=== PATIENT | male | born 1945 | race Caucasian/White ===

== ENCOUNTER 2020-02-07 14:22 | Inpatient (IN) | payer MEDICARE, SELFPAY ==
[2020-02-07] VITALS (8 sets, daily range): BP systolic 120–154; BP diastolic 61–72; PULSE 65–76; RESP 14–20; TEMP 36–36.8; O2SAT 93–98; BMI 27.6
--- NOTE | ~2020-02-07 | XR_ITS ---
XR hip LT min 3V w AP pelvis 02/07/2020 15:41 Indication: Left hip pain after fall from ladder Procedure: AP pelvis and 3 views left hip Comparison: No prior studies for comparison. Findings: There is a nondisplaced left femoral intertrochanteric fracture which continues inferiorly and laterally from the lesser trochanter. There is mild displacement of the greater trochanter. Moder ate degenerative changes of the hips. Mild levoscoliosis lower lumbar spine. Sacral foramen are gross ly symmetric. Pelvic rings are intact. Impression: 1: Left femoral intertrochanteric fracture which continues inferiorly laterally from the lesser troch anter. Mild displacement of the greater trochanter. Reviewed, dictated and finalized at location A. Impression: 1: Left femoral intertrochanteric fracture which continues inferiorly laterally from the lesser trochanter. Mild displacement of the greater trochanter.
--- NOTE | ~2020-02-07 | XR_ITS ---
XR surgery orthopedic 02/08/2020 15:20 Indication: For operative fixation of left hip fracture Procedure: 5 fluoroscopic images of the left hip Comparison: CT dated 02/07/2020 Findings: Status post intraoperative fixation of left femoral intertrochanteric fracture with dynamic compression screw and intramedullary maura. Fracture fragments in anatomic alignment post reduction. T here is a single distal interlocking screw. Impression: 1: Anatomic alignment of the left femur post reduction with dynamic compression screw and intramedull saurabh maura. Reviewed, dictated and finalized at location A. Impression: 1: Anatomic alignment of the left femur post reduction with dynamic compression screw and intramedullary maura.
--- NOTE | ~2020-02-07 | XR_ITS ---
EXAMINATION: XR chest 1V portable DATE: 02/08/2020 05:34 INDICATION: Hypertension. Preop. TECHNIQUE: A single frontal view of the chest was obtained. COMPARISON: Chest 2 views 03/22/2017 FINDINGS: There are airspace opacities at left lung base. There is a small left pleural effusion. No pneumothorax. The heart size is normal. There is a left shoulder arthroplasty. IMPRESSION: 1. Airspace opacities at left lung base, consistent with atelectasis versus pneumonia. 2. Small left pleural effusion. Reviewed, dictated and finalized at location A. IMPRESSION: 1. Airspace opacities at left lung base, consistent with atelectasis versus pne umonia. 2. Small left pleural effusion.
--- NOTE | ~2020-02-07 | CT_ITS ---
EXAMINATION: CT lumbar spine abiel ivan EXAM DATE: 02/07/2020 15:30 INDICATION: Fall, subsequent lumbar pain. TECHNIQUE: Spiral CT lumbar spine was performed without contrast. Axial, coronal and sagittal images of the lumbar spine were reviewed. The dose-length product (DLP) for this examination was 919.75 mGy- cm. The exposure was tailored according to patient size (auto mA exposure control), and iterative re construction (ASIR) was used as additional dose reduction technique. There is no prior study for sharif ortiz. FINDINGS: Sacroiliac joints intact. There is chronic appearing mild to moderate compression fracture of T12. Mi ld lower lumbar levoscoliosis centered at L4-5 with moderate disc disease and moderate to severe righ t neural foraminal stenosis at that level. Otherwise no more than mild to moderate lumbar central can al or neural foraminal stenosis. There is no evidence of acute lumbar fracture or spondylolysis. Th ere is no disc space widening or traumatic vertebral body subluxation suspected. Paraspinal soft tis juan francisco is unremarkable. There is moderate to severe lower lumbar facet arthropathy. Some scattered sigm oid diverticulosis. A detailed level by level evaluation of spondylosis can be added as addendum if requested. IMPRESSION: 1. No acute lumbar findings. 2. Chronic appearing T12 compression fracture. 3. 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 Reviewed, dictated and finalized at location A. IMPRESSION: 1. No acute lumbar findings. 2. Chronic appearing T12 compression fracture. 3. Spondylosis mostly L4-5 with moderate to severe right neural foraminal sten osis at that level.
--- NOTE | ~2020-02-07 | CT_ITS ---
EXAMINATION: CT hip LT wo con EXAM DATE: 02/07/2020 16:24 INDICATION: Initial encounter following injury, with pain of the left hip. Fall. Fracture. TECHNIQUE: Spiral CT hip LT wo con was performed without contrast. Axial, coronal and sagittal imag es were reviewed. The dose-length product (DLP) for this examination was 394.80 mGy-cm. The exposur e was tailored according to patient size (auto mA exposure control), and iterative reconstruction ( IR) was used as additional dose reduction technique. Correlation is made to left hip x-ray same date. FINDINGS: There is mildly displaced mildly comminuted left hip greater trochanteric fracture. There i s additional acute nondisplaced posttraumatic intertrochanteric fracture line identified on the anter ior cortex, and also spiraling down to the subtrochanteric region of the posterior cortex. This is be st seen on on coronal sequence 602, images 62 and 72, finding has been indicated on several of the se quences for your review. Imaged portion of the sacrum, left sacroiliac joint intact. There is colonic diverticulosis. IMPRESSION: 1. Left hip acute nondisplaced intertrochanteric fracture extending to the subtrochanteric region. 2. Mildly comminuted mildly displaced greater trochanteric fracture. Reviewed, dictated and finalized at location A. IMPRESSION: 1. Left hip acute nondisplaced intertrochanteric fracture extending to the sub trochanteric region. 2. Mildly comminuted mildly displaced greater trochanteric fracture.
--- NOTE | 2020-02-07 14:35 | ED.FALL ---
HPI - Fall General Chief Complaint: Fall <DALIA Swenson Last Filed: 02/07/20 18:08> Stated Complaint: FALL/L HIP PAIN <DALIA Swenson Last Filed: 02/07/20 18:08> Time Seen by Provider: 02/07/20 14:28 <DALIA Swenson Last Filed: 02/07/20 18:08> Source: patient, family and EMS <DALIA Swenson Last Filed: 02/07/20 18:08> Mode of arrival: ambulatory <DALIA Swenson Last Filed: 02/07/20 18:08> Limitations: no limitations <DALIA Swenson Last Filed: 02/07/20 18:08> History of Present Illness HPI Narrative: Patient is a 74-year-old male who presents per EMS for evaluation of fall from 3 feet up on a stepladder landing on the left hip has since been unable to get up presents per EMS noting moderate aching pain to the left hip only worse with any movement or activity patient denies head injury syncope loss of consciousness radicular symptoms or paresthesias. Patient on arrival in the room in no distress. Patient denies recent illness or other complaints <DALIA Swenson Last Filed: 02/07/20 18:08> Related Data Home Medications: Home Medications Medication Instructions Recorded Confirmed atorvastatin 20 mg PO 3XW 02/07/20 02/07/20 lisinopril 20 mg PO DAILY 02/07/20 02/07/20 royxvzli-hku-NW-lycopen-lutein 1 tablet PO DAILY 02/07/20 02/07/20 [Centrum Silver Men] <DALIA Swenson Last Filed: 02/07/20 18:08> Allergies/Adverse Reactions: Allergies Allergy/AdvReac Type Severity Reaction Status Date / Time No Known Allergies Allergy Unknown Verified 03/25/17 10:34 <DALIA Swenson Last Filed: 02/07/20 18:08> Review of Systems Review of Systems: All systems reviewed & are unremarkable except as noted in HPI and below <DALIA Swenson Last Filed: 02/07/20 18:08> [facility] Past Medical History Medical History: Medical History (Updated 02/07/20 @ 17:34 by Christiano Eden PA-C) Anemia <Christiano Eden PA-C - Last Filed: 02/07/20 18:08> Surgical History Surgical History: Surgical History History of orthopedic surgery <Christiano Eden PA-C - Last Filed: 02/07/20 18:08> Family History Family History: Family History (Updated 02/07/20 @ 19:12 by Jennifer Funk RN) Father Acute myocardial infarction <Christiano Eden PA-C - Last Filed: 02/07/20 18:08> Social History Social History: Social History (Updated 02/07/20 @ 14:36 by Christiano Eden PA-C) Smoking status: Never smoker Alcohol intake: never Substance use: never Gender identity (if verbalized by the patient): Male Spiritual care concerns: No <Christiano Eden PA-C - Last Filed: 02/07/20 18:08> Exam Narrative: Exam Narrative: GENERAL: Well-appearing, well-nourished, and in no acute distress. HEAD: Normocephalic, atraumatic. EYES: PERRLA and EOMI. ENT: Nares clear, no rhinorrhea or epistaxis. Mucous membranes moist. Oropharynx without tonsillar hypertrophy exudate or other lesions. NECK: Supple. No adenopathy or masses. CHEST: Clear to auscultation. No respiratory distress. No wheezes rales or rhonchi HEART: Regular rate and rhythm. No murmur heard. Normal peripheral pulses. ABDOMEN: Soft, nontender, nondistended EXTREMITIES: Tenderness of the left hip. Pelvis palpated and stable. No C-spine tenderness to palpation SKIN: Warm, dry, no rash. NEURO: No focal deficits. Alert and oriented x3. Neurovascularly intact. Cranial nerves II through XII grossly intact PSYCH: Normal mood and affect. <Christiano Eden PA-C - Last Filed: 02/07/20 18:08> Course ROUTE SUPERVISOR/PA Physician Supervision Spoke with the orthopedic surgeon who will plan to do surgery tomorrow also spoke with the hospitalist who is agreed to accept the patient <Christiano Eden PA-C - Last Filed: 02/07/20 18:08> Consultations Consult
[2020-02-07] MEDS: SODIUM CHLORIDE 0.9% IV 1,000 ML 999 ML IV CONT (14:41)
[2020-02-07] MEDS: MORPHINE SULFATE 4 MG/ML INJ IV PUSH ×3 (14:43→21:31)
[2020-02-07 14:56] LABS: Basophils Absolute Auto 0.1 K/mm3 (0.0-0.1); Basophils Percent Auto 0.6 % (0.2-1.2); Eosinophils Absolute Auto 0.2 K/mm3 (0-0.3); Eosinophils Percent Auto 1.5 % (0-4.4); Hematocrit 40.2 % (42.0-52.0); Hemoglobin 12.6 g/dL (14.0-18.0); Immature Granulocyte Absolute 0.04 K/mm3 (0.00-0.031); Immature Granulocyte Percent A 0.4 % (0-0.5); Lymphocytes Absolute Auto 2.37 K/mm3 (0.9-3.2); Lymphocytes Percent Auto 23.6 % (18.3-44.2); Mean Corpuscular HGB Conc 31.3 g/dl (32-36); Mean Corpuscular Hemoglobin 27.8 pg (26-34); Mean Corpuscular Volume 88.7 fl (80-100); Mean Platelet Volume 10.5 fl (7.4-10.4); Monocytes Percent Auto 9.9 % (2.6-8.5); Neutrophils Absolute Auto 6.4 K/mm3 (1.3-6.7); Platelet Count Result 253 k/mm3 (150-375); Red Blood Count 4.53 M/mm3 (4.6-6.20); Red Cell Distribution Width 14.4 % (11.5-14.5)
[2020-02-07 15:08] LABS: Alanine Aminotransferase 22 U/L (4-50); Alkaline Phosphatase 84 U/L (38-126); Aspartate Amino Transferase 31 U/L (17-59); Bilirubin,Total 0.8 mg/dL (0.2-1.3); Blood Urea Nitrogen 20 mg/dL (9-20); Calcium 9.2 mg/dL (8.4-10.2); Carbon Dioxide 26 mmol/L (22-30); Chloride 106 mmol/L (98-107); Estimated CRCL calculation 52 ml/min; Estimated Glomerular Filt Rate > 60; Glucose 137 mg/dL (75-110); Potassium 4.1 mmol/L (3.4-5.0); Sodium 137 mmol/L (137-145)
--- NOTE | 2020-02-07 17:37 | ECG_ITS ---
Measurements Intervals [place] Rate: 68 P: 59 OH: 155 QRS: -11 QRSD: 97 T: 28 QT: 417 QTc: 445 Interpretive Statements SINUS RHYTHM BASELINE WANDER- I, II NORMAL ECG Electronically Signed On 02-07-2020 19:39:18 CDT by Nish Hylton D.O.
[2020-02-07 17:55] LABS: Prothrombin Time 12.9 Seconds (11.1-14.7)
[2020-02-07 17:56] LABS: Partial Thromboplastin Time 26.1 SECONDS (22.3-36.8)
--- NOTE | 2020-02-07 19:03 | ADMGEN ---
This patient, Priscilla Dennis, was admitted to [facility] Surg Room 304-01. Patient/family oriented to hospital policies and general routines including ID bracelet, bed and alarms, visiting hours, pain management, procedures, bathroom and other care routines, personal items, smoking policy, room service/diet, and visiting hours. Valuables list has been completed. Information on how to activate the Rapid Response Team has been discussed. Patient/Family are encouraged to report perceived risks to care and to ask questions if they do not understand what they are told or what they should do.
[2020-02-07] MEDS: LACTATED RINGERS 1,000 ML 125 ML IV CONT (19:50)
[2020-02-07] MEDS: FAMOTIDINE 20 MG/2 ML VIAL IV PUSH (21:26)
[2020-02-07] MEDS: ONDANSETRON INJ 4 MG/2 ML VIAL IV PUSH (23:08)
--- NOTE | 2020-02-07 23:18 | PM.IMHP ---
H&P: HPI History of Present Illness Chief complaint: closed left hip fracture Narrative: Priscilla Dennis is a 74 year old male who stated that he was in his garage and he got on a 3 step ladder. The patient stated that he was reaching for some light bulbs on a shelf. The patient stated that he believes that he got down to the 2nd wrong and then he went to step-down he believes on the 1st wrung and fell off and landed on his left hip. The patient stated that laid there for a few minutes to see if he could possibly get up. After he was unable to get up he uses cell phone because to come back home. He stated he does not have a syncopal episode and that he did not lose consciousness or hit his head. Left hip acute nondisplaced intratrochanteric fracture extending to the subtrochanteric region. Mildly comminuted mildly displaced greater trochanteric fracture. Shows a left femoral intertrochanteric fracture which continues inferiorly laterally from the lesser trochanter. Mild displacement of the greater trochanter. Lumbar spine was read as no acute lumbar findings. Chronic appearing T12 compression fracture. Spondylosis mostly L4 and L5 with moderate to severe right neural foraminal stenosis at that level. 12.6 and 40.2 the patient stated that he has been taking iron and he has a history of iron deficiency anemia. He stated that in 2017 he did have a blood transfusion but is blood count initially came up.IV fluids were started in the emergency room. The patient was given IV morphine and IV Tylenol. The patient was having hiccups once he reached the medical floor and felt like he was going to throughout. Date of service 02/07/2020 Review of Systems Review of Systems: All systems reviewed & are unremarkable except as noted in HPI and below Constitutional: Constitutional: Reports as per HPI and Reports no additional constitutional complaints Eyes: Eyes: Reports as per HPI and Reports no additional eye complaints ENT: Reports system reviewed and no additional complaints, except as documented and Reports Normal hearing present Cardiovascular: Cardiovascular: Reports no additional cardiovascular complaints Respiratory: Respiratory: Reports no additional respiratory complaints and Reports no additional respiratory complaints Gastrointestinal: Gastrointestinal: Reports as per HPI and Reports no additional gastrointestinal complaints Musculoskeletal: Musculoskeletal: Reports no additional musculoskeletal complaints Integumentary/Breasts: Skin/Breast: Reports system reviewed and no additional complaints, except as docu and Reports as per HPI Neurologic: Reports system reviewed and no additional complaints, except as documented, Reports as per HPI and Reports Normal hearing present Psychiatric: Psychiatric: Reports no additional psychiatric complaints and Reports as per HPI Endocrine: Endocrine: Reports no additional endocrine complaints Hematologic/Lymphatic: Hematologic/Lymphatic: Reports no additional hematologic/lymphatic complaints Allergic/Immunologic: Allergic/Immunologic: Reports no additional allergic/immunologic complaints PMFSH Past Medical History Medical History (Updated 02/07/20 @ 23:38 by Christin Sandoval NP) Anemia Compression fracture T12 Gout HTN (hypertension) with goal to be determined Hyperlipidemia Iron deficiency anemia Surgical History Surgical History (Updated 02/07/20 @ 23:27 by Christin Sandoval NP) History of left shoulder replacement Family History Family History (Updated 02/07/20 @ 23:33 by Christin Sandoval NP) Father Acute myocardial infarction Gout Mother Cerebral brain hemorrhage Social History Social History (Updated 02/07/20 @ 23:40 by Christin Sandoval NP) Social History: The patient is and lives with his . She is a durable power civil rights attorney for healthcare. The patient desires to be a full code. The patient has 4 children. He worked for [employer]. He works in the [employer]
[2020-02-08] VITALS (13 sets, daily range): BP systolic 111–158; BP diastolic 56–79; PULSE 66–75; RESP 10–20; TEMP 36.4–37.2; O2SAT 96–100
[2020-02-08] MEDS: LACTATED RINGERS 1,000 ML 125 ML IV CONT ×2 (04:03→11:40)
[2020-02-08 04:29] LABS: Alanine Aminotransferase 23 U/L (4-50); Albumin Level 3.7 g/dL (3.5-5.1); Alkaline Phosphatase 67 U/L (38-126); Aspartate Amino Transferase 30 U/L (17-59); Bilirubin,Total 0.9 mg/dL (0.2-1.3); Blood Urea Nitrogen 20 mg/dL (9-20); Carbon Dioxide 26 mmol/L (22-30); Chloride 105 mmol/L (98-107); Estimated CRCL calculation 57 ml/min; Estimated Glomerular Filt Rate > 60; Glucose 174 mg/dL (75-110); Magnesium 1.9 mg/dL (1.6-2.3); Potassium 4.7 mmol/L (3.4-5.0); Sodium 140 mmol/L (137-145)
--- NOTE | 2020-02-08 07:00 | PC.NURSE ---
MRSA swab testing cancelled by Dr Gavin - no indication for testing. Lab notified.
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
[2020-02-08] MEDS: OPTI-GEN TAB 1 TABLET PO (09:20)
[2020-02-08] MEDS: FAMOTIDINE 20 MG/2 ML VIAL IV PUSH (09:20)
[2020-02-08] MEDS: LACTATED RINGERS 1,000 ML 30 ML IV CONT ×2 (12:15→15:57)
--- NOTE | 2020-02-08 12:18 | PC.NURSE ---
Pt left for OR at 1200.
--- NOTE | 2020-02-08 12:25 | WPDANESEPPF ---
Anes - Initial Pre Proc Eval Procedure: Operation Date: 02/08/20 13:30 Proposed Procedures p Left Intertrochanteric Nail - Delvis Gavin MD Date/Time: 02/08/20 12:25 Surgeon: Tutu English MD Pre Op Diagnosis: closed left hip fracture Patient Data Age: 74 Gender: M Height: 5 ft 9 in Weight: 85 kg Last Vital Signs Temp 36.6 C 02/08/20 11:24 Pulse 69 02/08/20 11:24 Resp 16 02/08/20 11:24 BP 122/56 L 02/08/20 11:24 Pulse Ox 96 02/08/20 11:24 Allergies Allergy/AdvReac Type Severity Reaction Status Date / Time No Known Allergies Allergy Unknown Verified 03/25/17 10:34 Home Medications Medication Instructions Recorded Confirmed Type atorvastatin 20 mg PO 3XW 02/07/20 02/07/20 History lisinopril 20 mg PO DAILY 02/07/20 02/07/20 History izmplfca-evm-YM-lycopen-lutein 1 tablet PO DAILY 02/07/20 02/07/20 History [Centrum Silver Men] Laboratory Tests 02/07/20 02/07/20 02/07/20 14:49 14:49 14:49 WBC 10.0 K/mm3 K/mm3 (4.5-10.0) RBC 4.53 M/mm3 L M/mm3 (4.6-6.20) Hgb 12.6 g/dL L g/dL (14.0-18.0) Hct 40.2 % L % (42.0-52.0) MCV 88.7 fl fl (80-100) MCH 27.8 pg pg (26-34) MCHC 31.3 g/dl L g/dl (32-36) RDW 14.4 % % (11.5-14.5) Plt Count 253 k/mm3 k/mm3 (150-375) MPV 10.5 fl H fl (7.4-10.4) Immature Gran % (Auto) 0.4 % % (0-0.5) Neut % (Auto) 64.0 % % (45.5-73.1) Lymph % (Auto) 23.6 % % (18.3-44.2) Greenlee % (Auto) 9.9 % H % (2.6-8.5) Eos % (Auto) 1.5 % % (0-4.4) Baso % (Auto) 0.6 % % (0.2-1.2) Lymph # (Auto) 2.37 K/mm3 K/mm3 (0.9-3.2) Greenlee # (Auto) 1.0 K/mm3 H K/mm3 (0.1-0.6) Eos # (Auto) 0.2 K/mm3 K/mm3 (0-0.3) Baso # (Auto) 0.1 K/mm3 K/mm3 (0.0-0.1) Abs Immat Gran (auto) 0.04 K/mm3 H K/mm3 (0.00-0.031) Absolute Neuts (auto) 6.4 K/mm3 K/mm3 (1.3-6.7) Absolute Nucleated RBC 0.0 K/mm3 K/mm3 (0.0-0.012) Nucleated RBC % 0.0 % % (0.0-0.2) PT 12.9 Seconds Seconds (11.1-14.7) INR 1.0 APTT 26.1 SECONDS SECONDS (22.3-36.8) Sodium 137 mmol/L mmol/L (137-145) Potassium 4.1 mmol/L mmol/L (3.4-5.0) Chloride 106 mmol/L mmol/L (98-107) Carbon Dioxide 26 mmol/L mmol/L (22-30) BUN 20 mg/dL mg/dL (9-20) Creatinine 1.10 mg/dL mg/dL (0.7-1.3) Estim Creat Clear Calc 52 ml/min ml/min Estimated GFR > 60 (59 - ) Glucose 137 mg/dL H mg/dL (75-110) Calcium 9.2 mg/dL mg/dL (8.4-10.2) Magnesium Total Bilirubin 0.8 mg/dL mg/dL (0.2-1.3) AST 31 U/L U/L (17-59) ALT 22 U/L U/L (4-50) Alkaline Phosphatase 84 U/L U/L (38-126) Total Protein 7.0 g/dL g/dL (6.3-8.2) Albumin 4.0 g/dL g/dL (3.5-5.1) TSH (Reflex) Blood Type Antibody Screen 02/08/20 02/08/20 02/08/20 04:07 04:07 04:07 WBC RBC Hgb Hct MCV MCH MCHC RDW Plt Count MPV Immature Gran % (Auto) Neut % (Auto) Lymph % (Auto) Greenlee % (Auto) Eos % (Auto) Baso % (Auto) Lymph # (Auto) Greenlee # (Auto) Eos # (Auto) Baso # (Auto) Abs Immat Gran (auto) Absolute Neuts (auto) Absolute Nucleated RBC Nucleated RBC % PT INR APTT Sodium 140 mmol/L mmol/L (137-145) Potassium 4.7 mmol/L mmol/L (3.4-5.0) Chloride 105 mmol/L mmol/L (98-107) Carbon Dioxide 26 mmol/
--- NOTE | 2020-02-08 12:42 | SUR.PREOP ---
1230; PT SURGICAL HAIR REMOVAL NOT DONE DUE TO PAIN WITH ANY MOVEMENT. PT OTHERWISE PAINFREE.
--- NOTE | 2020-02-08 14:04 | SUR.PREOP ---
1400; CALLED TO ROOM. PT C/O MUSCLE SPASMS TO LT HIP AND THIGH. DR OLIVARES NOTIFIED. FENTANYL ORDERED.
--- NOTE | 2020-02-08 14:12 | SUR.PREOP ---
1412; PT AWAKE AND ALERT. STATES PAIN MUCH BETTER NOW. DOES NOT WANT ANYMORE PAIN MED AT THIS TIME.
[2020-02-08] MEDS: ceFAZolin 2 GM/D5W 50 ML 2 GM/50 ML BAG IVPB (14:18)
[2020-02-08] MEDS: TRANEXAMIC ACID 1,000 MG/10 ML AMPUL 1000 MG IV PUSH (14:27)
--- NOTE | 2020-02-08 14:50 | SUR.OPER ---
400ml clear yellow urine drained from styles before beginning surgery
--- NOTE | 2020-02-08 15:42 | PM.PROC ---
Procedure Note - Detailed Date of procedure: 02/08/20 Pre-op diagnosis: closed left hip fracture Left intertrochanteric hip fracture Post-op diagnosis: same Procedure performed: Internal fixation left intertrochanteric hip fracture with Biomet PTN trochanteric nail device. Description of procedure: Patient was brought to the operating room and general anesthesia was administered. The left lateral hip and thigh was carefully scrubbed with the chlorhexidine clot. He was transferred to the fracture table the left foot padded with soft roll and placed into the traction boot the right hip flexed and abducted out of the way. The leg was placed in neutral alignment and we evaluated the left hip fluoroscopically. The intertrochanteric portion of the fracture remained completely nondisplaced. We did not apply traction to the leg. The greater trochanter fragment remained minimally displaced. The left hip was prepped draped usual fashion. He received weight based vancomycin 2 g of Ancef and 1 g of tranexamic acid preoperatively. A 2 in longitudinal incision was made 2 in proximal to the greater trochanter. Guidewire was inserted down the tip of the greater trochanter into the canal and a starter Reamer used to open up the canal and a long guide maura inserted without difficulty. The canal was reamed to 15 mm and even then we did not have significant chatter. The proximal femur was reamed to 16.5 mm and we chose the 13 mm x 1 22 cm Biomet troch nail inserted this to the proper depth with manual pressure only. A guide pin was inserted into the femoral head on the AP and lateral views this was reamed and a 95 mm telescoping lag screw inserted to approximately 10 mm of subchondral bone which obtained excellent purchase. The sliding sleeve was impacted flush lateral cortex and locked with the locking screw. A single distal interlocking screw was placed without difficulty. Wounds are irrigated with Ancef solution and closed with Vicryl suture and skin glue. Reveals 150 cc. He was transferred postop recovery room in stable condition. No known complications. Surgeon: Delvis Gavin MD
--- NOTE | 2020-02-08 15:49 | PM.IMPN ---
Progress Note: A&P Assessment and Plan (1) Closed fracture of left hip: Code(s): S72.002A - Fracture of unspecified part of neck of left femur, initial encounter for closed fracture Status: Acute Assessment and Plan: Patient is cleared for surgery. I just wanted chest x-ray prior to him going to surgery. He has no signs and symptoms of COVID at this time. Continue with IV fluids and pain medication as well as nausea medicine. Patient will be NPO after midnight. He was nauseated so I do not think Gavi tonight but he can eat tonight home be NPO. I will resume his home medications for tonight. 02/08/20 15:49 atient is cleared for surgery. I just wanted chest x-ray prior to him going to surgery. He has no signs and symptoms of COVID at this time. Continue with IV fluids and pain medication as well as nausea medicine. Patient will be NPO after midnight. He was nauseated so I do not think Gavi tonight but he can eat tonight home be NPO. I will resume his home medications for tonight. Today patient is seen by orthopedic surgeon is scheduled for surgery later today, is feeling better still complains of pain in the hip denies any fever or chills (2) HTN (hypertension) with goal to be determined: Code(s): I10 - Essential (primary) hypertension Status: Chronic Assessment and Plan: will resume his lisinopril. (3) Hyperlipidemia: Code(s): E78.5 - Hyperlipidemia, unspecified Status: Chronic Assessment and Plan: Continue with atrial of a statin. (4) Iron deficiency anemia: Code(s): D50.9 - Iron deficiency anemia, unspecified Status: Chronic Assessment and Plan: Continue to monitor his H&H. (5) Gout: Code(s): M10.9 - Gout, unspecified Status: Chronic Assessment and Plan: Not currently on any medications. (6) Compression fracture: Status: Chronic Assessment and Plan: Appears to be chronic. Subjective Date/time seen: 02/08/20 15:49 atient is cleared for surgery. I just wanted chest x-ray prior to him going to surgery. He has no signs and symptoms of COVID at this time. Continue with IV fluids and pain medication as well as nausea medicine. Patient will be NPO after midnight. He was nauseated so I do not think Gavi tonight but he can eat tonight home be NPO. I will resume his home medications for tonight. Today patient is seen by orthopedic surgeon is scheduled for surgery later today, is feeling better still complains of pain in the hip denies any fever or chills Review of Systems Review of Systems: All systems reviewed & are unremarkable except as noted in HPI and below Exam Const: General: no acute distress and uncomfortable HENMT: General nose exam: Normal nares present Mouth: Yes moist mucous membranes Eyes: General: appearance normal, both eyes and all related structures Sclera: sclerae normal Neck: Neck: supple Resp: Effort & Inspection: normal respiratory effort Auscultation: clear to auscultation bilaterally Cardio: Rate: regular rate Rhythm: regular rhythm GI: Auscultation: normal bowel sounds Skin: General skin exam: normal color Neuro: Speech: normal speech Sensory Exam: normal sensation Extrem: Other: Left lower extremity external rotation Psych: Affect: Anxious affect present Objective Data Vital Signs Vital Signs: Vital Signs - 24 hr 02/07/20 16:35 02/07/20 17:47 02/07/20 18:15 Temperature Pulse Rate 70 70 73 Respiratory Rate 20 20 20 Blood Pressure 126/63 124/65 140/72 Pulse Oximetry 97 98 97 02/07/20 18:39 02/07/20 18:50 02/07/20 22:00 Temperature 97.7 F 96.8 F L Pulse Rate 71 73 66 Respiratory Rate 14 20 20 Blood Pressure 127/69 130/71 127/61 Pulse Oximetry 94 97 93 02/08/20 06:00 02/08/20 11:24 02/08/20 12:33 Temperature 97.6 F 97.9 F 98.9 F Pulse Rate 68 69 70 Respiratory Rate 20 16 18 Blood Pressure 135/63 122/56 L 122/56 L Pulse Oximetry
[2020-02-08] MEDS: HYDROMORPHONE HCL 1 MG/ML INJ 0.25 MG IV PUSH (16:25)
[2020-02-08 16:31] LABS: Vitamin D 25 Hydroxy 41.8 ng/mL
[2020-02-08 17:02] LABS: Hemoglobin 10.9 g/dL (14.0-18.0)
[2020-02-08] MEDS: DOCUSATE SODIUM 100 MG CAPSULE PO (17:48)
[2020-02-08] MEDS: SODIUM CHLORIDE 0.9% IV 1,000 ML 125 ML IV CONT (17:50)
[2020-02-08] MEDS: ACETAMINOPHEN 500 MG TABLET 1000 MG PO (20:55)
[2020-02-08] MEDS: FAMOTIDINE 20 MG TABLET PO (20:55)
[2020-02-09 02:00] VITALS: BP 118/54; PULSE 66; RESP 16; TEMP 36.7; O2SAT 98
[2020-02-09] MEDS: SODIUM CHLORIDE 0.9% IV 1,000 ML 125 ML IV CONT ×3 (02:20→18:47)
[2020-02-09] MEDS: ACETAMINOPHEN 500 MG TABLET 1000 MG PO ×3 (03:00→21:03)
[2020-02-09 05:58] LABS: Basophils Percent Auto 0.1 % (0.2-1.2); Eosinophils Percent Auto 0.1 % (0-4.4); Hemoglobin 10.6 g/dL (14.0-18.0); Immature Granulocyte Absolute 0.07 K/mm3 (0.00-0.031); Immature Granulocyte Percent A 0.5 % (0-0.5); Lymphocytes Absolute Auto 1.34 K/mm3 (0.9-3.2); Lymphocytes Percent Auto 9.5 % (18.3-44.2); Mean Corpuscular HGB Conc 31.2 g/dl (32-36); Mean Corpuscular Hemoglobin 27.4 pg (26-34); Mean Corpuscular Volume 87.9 fl (80-100); Mean Platelet Volume 10.9 fl (7.4-10.4); Monocytes Absolute Auto 1.2 K/mm3 (0.1-0.6); Monocytes Percent Auto 8.4 % (2.6-8.5); Neutrophils Absolute Auto 11.5 K/mm3 (1.3-6.7); Neutrophils Percent Auto 81.4 % (45.5-73.1); Platelet Count Result 209 k/mm3 (150-375); Red Blood Count 3.87 M/mm3 (4.6-6.20); Red Cell Distribution Width 14.3 % (11.5-14.5); White Blood Count 14.1 K/mm3 (4.5-10.0)
[2020-02-09 05:59] LABS: Blood Urea Nitrogen 14 mg/dL (9-20); Calcium 8.5 mg/dL (8.4-10.2); Carbon Dioxide 26 mmol/L (22-30); Chloride 103 mmol/L (98-107); Estimated CRCL calculation 63 ml/min; Estimated Glomerular Filt Rate > 60; Glucose 141 mg/dL (75-110); Potassium 4.7 mmol/L (3.4-5.0); Sodium 134 mmol/L (137-145)
[2020-02-09 06:00] VITALS: BP 144/67; PULSE 65; RESP 16; TEMP 36.7; O2SAT 100
[2020-02-09] MEDS: FAMOTIDINE 20 MG TABLET PO ×2 (09:13→21:03)
[2020-02-09] MEDS: OPTI-GEN TAB 1 TABLET PO (09:14)
[2020-02-09] MEDS: APIXABAN 2.5 MG TABLET PO ×2 (09:14→21:03)
[2020-02-09] MEDS: lisinopriL 20 MG TABLET PO (09:14)
[2020-02-09] MEDS: DOCUSATE SODIUM 100 MG CAPSULE PO ×2 (09:15→17:15)
[2020-02-09] MEDS: polyethylene glycoL 3350 17 GM POWD.PACK PO (09:15)
[2020-02-09 10:28] VITALS: BP 141/64; PULSE 64; RESP 18; TEMP 36.8; O2SAT 99
--- NOTE | 2020-02-09 12:40 | PM.PNORT ---
Progress Note: A&P Additional Plan POD 1 avss alert pain is well controlled, wds-dry ,has been up with PT this morning doing well, labs-mild anemia noted. Discussed with pt option of going home verses rehab. Will see how he does today and tomorrow and makes plans according NVi Subjective Subjective Date/Time Seen: 02/09/20 12:40 Objective Data Vital Signs Vital Signs: Vital Signs - 24 hr 02/08/20 15:26 02/08/20 15:41 02/08/20 15:56 Temperature 37.1 C Pulse Rate 74 74 73 Respiratory Rate 12 12 14 Blood Pressure 111/66 140/63 152/71 H Pulse Oximetry 99 100 100 02/08/20 16:23 02/08/20 16:37 02/08/20 16:43 Temperature 36.5 C Pulse Rate 75 69 66 Respiratory Rate 16 10 L 18 Blood Pressure 152/75 H 152/79 H 154/66 H Pulse Oximetry 100 98 96 02/08/20 16:58 02/08/20 17:28 02/08/20 21:25 Temperature Pulse Rate 74 71 Respiratory Rate 16 16 Blood Pressure 142/73 H 158/65 H Pulse Oximetry 97 98 98 02/08/20 22:00 02/09/20 02:00 02/09/20 06:00 Temperature 36.6 C 36.7 C 36.7 C Pulse Rate 73 66 65 Respiratory Rate 16 16 16 Blood Pressure 138/68 118/54 L 144/67 H Pulse Oximetry 99 98 100 02/09/20 10:28 Temperature 36.8 C Pulse Rate 64 Respiratory Rate 18 Blood Pressure 141/64 H Pulse Oximetry 99 Intake/Output Intake/Output: Intake & Output 02/06/20 02/07/20 02/08/20 02/09/20 23:59 23:59 23:59 23:59 Intake Total 1100 4280 2420 Output Total 930 1200 Balance 1100 3350 1220 Meds/Results Medications: Active Medications Generic Name Dose Route Start Last Admin Trade Name Freq PRN Reason Stop Dose Admin Acetaminophen 1,000 mg 02/08/20 21:00 02/09/20 09:14 Tylenol Tablet PO 1,000 mg Q6H REYES Administration Al Hydrox/Mg Hydrox/Simethicone 30 ml 02/08/20 16:43 Mylanta PO Q6H PRN Indigestion Apixaban 2.5 mg 02/09/20 09:00 02/09/20 09:14 Eliquis PO 03/14/20 21:01 2.5 mg Q12HR [facility] Administration Atorvastatin Calcium 20 mg 02/09/20 21:00 Lipitor PO [email or web address] [facility] Bisacodyl 10 mg 02/08/20 16:43 Dulcolax Suppository RECTAL DAILY PRN Constipation Docusate Sodium 100 mg 02/08/20 17:00 02/09/20 09:15 Colace Capsule PO 100 mg BID [facility] Administration Famotidine 20 mg 02/08/20 21:00 02/09/20 09:13 Pepcid PO 20 mg Q12HR [facility] Administration Hydroxyzine HCl 50 mg 02/08/20 16:43 Atarax Tablet PO Q4H PRN Itching Cefazolin Sodium 1 gm in 50 mls @ 100 mls/hr 02/08/20 22:00 02/09/20 05:00 Ancef 1 Gm/D5w 50 Ml Pm IVPB 02/09/20 14:29 100 mls/hr Q8H [facility] Administration Sodium Chloride 1,000 mls @ 125 mls/hr 02/08/20 16:43 02/09/20 11:08 Normal Saline Iv IV CONT 125 mls/hr .Q8H [facility] Administration Lisinopril 20 mg 02/08/20 09:00 02/09/20 09:14 Prinivil PO 20 mg DAILY [facility] Administration Magnesium Hydroxide 30 ml 02/08/20 16:43 Milk Of Magnesia PO BID PRN Constipation Morphine Sulfate 2 mg 02/08/20 16:43 Morphine Sulfate Inj IV PUSH Q3H PRN Pain Rated 7-10 Multivitamins/Minerals 1 tablet 02/08/20 09:00 02/09/20 09:14 Ocuvite PO 1 tablet DAILY [facility] Administration Naloxone HCl 0.1 mg 02/08/20 16:43 Narcan IV PUSH Q2M PRN Opiate Reversal Ondansetron HCl 4 mg 02/08/20 16:43 Zofran Inj IV PUSH Q4H PRN Nausea And Vomiting Oxycodone HCl 5 mg 02/08/20 16:43 Roxicodone Ir Tablet PO Q4H PRN Pain Rated 4-6 Oxycodone HCl 5 mg 02/08/20 16:43 02/09/20 09:14 Roxicodone Ir Tablet PO 5 mg Q4H [facility] Administration Polyethylene Glycol 17 gm 02/09/20 09:00 02/09/20 09:15 Miralax PO 17 gm QAM [facility] Administration Radiology Results: ITS Impressions Lumbar Spine CT 02/07/20 15:34 IMPRESSION: 1. No acute lumbar findings. 2. Chronic appearing T12 compression fracture. 3. 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
--- NOTE | 2020-02-09 12:44 | PM.PNORT ---
Progress Note: A&P Additional Plan VIT D normal range 41.8 Subjective Subjective Date/Time Seen: 02/09/20 12:44 Objective Data Vital Signs Vital Signs: Vital Signs - 24 hr 02/08/20 15:26 02/08/20 15:41 02/08/20 15:56 Temperature 37.1 C Pulse Rate 74 74 73 Respiratory Rate 12 12 14 Blood Pressure 111/66 140/63 152/71 H Pulse Oximetry 99 100 100 02/08/20 16:23 02/08/20 16:37 02/08/20 16:43 Temperature 36.5 C Pulse Rate 75 69 66 Respiratory Rate 16 10 L 18 Blood Pressure 152/75 H 152/79 H 154/66 H Pulse Oximetry 100 98 96 02/08/20 16:58 02/08/20 17:28 02/08/20 21:25 Temperature Pulse Rate 74 71 Respiratory Rate 16 16 Blood Pressure 142/73 H 158/65 H Pulse Oximetry 97 98 98 02/08/20 22:00 02/09/20 02:00 02/09/20 06:00 Temperature 36.6 C 36.7 C 36.7 C Pulse Rate 73 66 65 Respiratory Rate 16 16 16 Blood Pressure 138/68 118/54 L 144/67 H Pulse Oximetry 99 98 100 02/09/20 10:28 Temperature 36.8 C Pulse Rate 64 Respiratory Rate 18 Blood Pressure 141/64 H Pulse Oximetry 99 Intake/Output Intake/Output: Intake & Output 02/06/20 02/07/20 02/08/20 02/09/20 23:59 23:59 23:59 23:59 Intake Total 1100 4280 2420 Output Total 930 1200 Balance 1100 3350 1220 Meds/Results Medications: Active Medications Generic Name Dose Route Start Last Admin Trade Name Freq PRN Reason Stop Dose Admin Acetaminophen 1,000 mg 02/08/20 21:00 02/09/20 09:14 Tylenol Tablet PO 1,000 mg Q6H [facility]YES Administration Al Hydrox/Mg Hydrox/Simethicone 30 ml 02/08/20 16:43 Mylanta PO Q6H PRN Indigestion Apixaban 2.5 mg 02/09/20 09:00 02/09/20 09:14 Eliquis PO 03/14/20 21:01 2.5 mg Q12HR [facility] Administration Atorvastatin Calcium 20 mg 02/09/20 21:00 Lipitor PO [email or web address] [facility] Bisacodyl 10 mg 02/08/20 16:43 Dulcolax Suppository RECTAL DAILY PRN Constipation Docusate Sodium 100 mg 02/08/20 17:00 02/09/20 09:15 Colace Capsule PO 100 mg BID [facility] Administration Famotidine 20 mg 02/08/20 21:00 02/09/20 09:13 Pepcid PO 20 mg Q12HR [facility] Administration Hydroxyzine HCl 50 mg 02/08/20 16:43 Atarax Tablet PO Q4H PRN Itching Cefazolin Sodium 1 gm in 50 mls @ 100 mls/hr 02/08/20 22:00 02/09/20 05:00 Ancef 1 Gm/D5w 50 Ml Pm IVPB 02/09/20 14:29 100 mls/hr Q8H [facility] Administration Sodium Chloride 1,000 mls @ 125 mls/hr 02/08/20 16:43 02/09/20 11:08 Normal Saline Iv IV CONT 125 mls/hr .Q8H [facility] Administration Lisinopril 20 mg 02/08/20 09:00 02/09/20 09:14 Prinivil PO 20 mg DAILY [facility] Administration Magnesium Hydroxide 30 ml 02/08/20 16:43 Milk Of Magnesia PO BID PRN Constipation Morphine Sulfate 2 mg 02/08/20 16:43 Morphine Sulfate Inj IV PUSH Q3H PRN Pain Rated 7-10 Multivitamins/Minerals 1 tablet 02/08/20 09:00 02/09/20 09:14 Ocuvite PO 1 tablet DAILY [facility] Administration Naloxone HCl 0.1 mg 02/08/20 16:43 Narcan IV PUSH Q2M PRN Opiate Reversal Ondansetron HCl 4 mg 02/08/20 16:43 Zofran Inj IV PUSH Q4H PRN Nausea And Vomiting Oxycodone HCl 5 mg 02/08/20 16:43 Roxicodone Ir Tablet PO Q4H PRN Pain Rated 4-6 Oxycodone HCl 5 mg 02/08/20 16:43 02/09/20 09:14 Roxicodone Ir Tablet PO 5 mg Q4H [facility] Administration Polyethylene Glycol 17 gm 02/09/20 09:00 02/09/20 09:15 Miralax PO 17 gm QAM [facility] Administration Radiology Results: ITS Impressions Lumbar Spine CT 02/07/20 15:34 IMPRESSION: 1. No acute lumbar findings. 2. Chronic appearing T12 compression fracture. 3. 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 Hip/Pelvis X-Ray 02/07/20 15:41 Impression: 1: Left femoral intertrochanteric fracture which continues inferiorly laterally from the lesser trochanter. Mild displacement of the greater trochanter
[2020-02-09 14:28] VITALS: BP 142/62; PULSE 67; RESP 18; TEMP 36.8; O2SAT 100
--- NOTE | 2020-02-09 15:07 | PM.IMPN ---
Progress Note: A&P Assessment and Plan (1) Closed fracture of left hip: Code(s): S72.002A - Fracture of unspecified part of neck of left femur, initial encounter for closed fracture Status: Acute Assessment and Plan: 02/09/20 15:07 Patient is cleared for surgery. I just wanted chest x-ray prior to him going to surgery. He has no signs and symptoms of COVID at this time. Continue with IV fluids and pain medication as well as nausea medicine. Patient will be NPO after midnight. He was nauseated so I do not think Gavi tonight but he can eat tonight home be NPO. I will resume his home medications for tonight. on 02/07 patient was seen by orthopedic surgeon had ORIF today POD #1, is feeling better still complains of pain in the hip denies any fever or chills, was able to participate in physical therapy today patient is seen by orthopedic surgeon plan is to continue present management reassess in couple of days to see patient will benefit from going to rehab or going home (2) HTN (hypertension) with goal to be determined: Code(s): I10 - Essential (primary) hypertension Status: Chronic Assessment and Plan: will resume his lisinopril. (3) Hyperlipidemia: Code(s): E78.5 - Hyperlipidemia, unspecified Status: Chronic Assessment and Plan: Continue with atrial of a statin. (4) Iron deficiency anemia: Code(s): D50.9 - Iron deficiency anemia, unspecified Status: Chronic Assessment and Plan: Continue to monitor his H&H. (5) Gout: Code(s): M10.9 - Gout, unspecified Status: Chronic Assessment and Plan: Not currently on any medications. (6) Compression fracture: Status: Chronic Assessment and Plan: Appears to be chronic. Subjective Date/time seen: 02/09/20 15:07 atient is cleared for surgery. I just wanted chest x-ray prior to him going to surgery. He has no signs and symptoms of COVID at this time. Continue with IV fluids and pain medication as well as nausea medicine. Patient will be NPO after midnight. He was nauseated so I do not think Gavi tonight but he can eat tonight home be NPO. I will resume his home medications for tonight. on 5/28 patient was seen by orthopedic surgeon had ORIF today POD #1, is feeling better still complains of pain in the hip denies any fever or chills, was able to participate in physical therapy today patient is seen by orthopedic surgeon plan is to continue present management reassess in couple of days to see patient will benefit from going to rehab or going home Review of Systems Review of Systems: All systems reviewed & are unremarkable except as noted in HPI and below Exam Const: General: comfortable and no acute distress HENMT: General nose exam: Normal nares present Mouth: Yes moist mucous membranes Eyes: General: appearance normal, both eyes and all related structures Sclera: sclerae normal Neck: Neck: supple Resp: Effort & Inspection: normal respiratory effort Auscultation: clear to auscultation bilaterally Cardio: Rate: regular rate Rhythm: regular rhythm GI: Auscultation: normal bowel sounds Skin: General skin exam: normal color Neuro: Speech: normal speech Sensory Exam: normal sensation Extrem: General: normal to inspection Psych: Affect: Anxious affect present Objective Data Vital Signs Vital Signs: Vital Signs - 24 hr 02/08/20 15:26 02/08/20 15:41 02/08/20 15:56 Temperature 98.7 F Pulse Rate 74 74 73 Respiratory Rate 12 12 14 Blood Pressure 111/66 140/63 152/71 H Pulse Oximetry 99 100 100 02/08/20 16:23 02/08/20 16:37 02/08/20 16:43 Temperature 97.7 F Pulse Rate 75 69 66 Respiratory Rate 16 10 L 18 Blood Pressure 152/75 H 152/79 H 154/66 H Pulse Oximetry 100 98 96 02/08/20 16:58 02/08/20 17:28 02/08/20 21:25 Temperature Pulse Rate 74 71 Respiratory Rate 16 16 Blood Pressure 142/73 H 158/65 H Pulse Oximetry 97 98 98 05
[2020-02-09 18:28] VITALS: BP 140/60; PULSE 91; RESP 16; TEMP 36.8; O2SAT 100
[2020-02-09] MEDS: ATORVASTATIN 20 MG TABLET PO (21:03)
[2020-02-09 22:00] VITALS: BP 149/74; PULSE 87; RESP 18; TEMP 37; O2SAT 97
[2020-02-10] MEDS: ACETAMINOPHEN 500 MG TABLET 1000 MG PO ×3 (04:04→15:29)
[2020-02-10 06:00] VITALS: BP 106/68; PULSE 79; RESP 18; TEMP 37; O2SAT 96
[2020-02-10 07:41] LABS: Hemoglobin 10.5 g/dL (14.0-18.0); Mean Corpuscular HGB Conc 31.8 g/dl (32-36); Mean Corpuscular Hemoglobin 27.9 pg (26-34); Mean Corpuscular Volume 87.8 fl (80-100); Mean Platelet Volume 10.7 fl (7.4-10.4); Platelet Count Result 213 k/mm3 (150-375); Red Blood Count 3.76 M/mm3 (4.6-6.20); Red Cell Distribution Width 14.6 % (11.5-14.5); White Blood Count 12.2 K/mm3 (4.5-10.0)
[2020-02-10 07:47] LABS: Blood Urea Nitrogen 17 mg/dL (9-20); Calcium 8.9 mg/dL (8.4-10.2); Carbon Dioxide 27 mmol/L (22-30); Chloride 102 mmol/L (98-107); Estimated CRCL calculation 57 ml/min; Estimated Glomerular Filt Rate > 60; Glucose 119 mg/dL (75-110); Sodium 135 mmol/L (137-145)
--- NOTE | 2020-02-10 08:21 | PM.PNORT ---
Progress Note: A&P Additional Plan Patient is now postop day 2 after internal fixation left intertrochanteric hip fracture with trochanteric hip screw device. He is doing well. His hemoglobin remains greater than 10. He has walked 25 ft with his walker 50% weight-bearing. His pain is controlled. He would like to change the oxycodone to as needed. He will continue with the scheduled Tylenol. With respect to his going home today I talked to mom about that and he is not sure but is hopeful that if he does well with therapy this morning he will feel comfortable and confident that he will be able to tolerate being at home in from a medical standpoint I think he is stable for discharge if he is able to perform transfers and necessary movements for ADLs to the extent necessary for him to be at home now. I would like him to continue with his Eliquis for a 5 week course. We will send home with p.r.n. oxycodone and constipation medications and I would like to see him back in the office in about 10 days. If he has any problems he should call. Subjective Subjective Date/Time Seen: 02/10/20 08:21 Objective Data Vital Signs Vital Signs: Vital Signs - 24 hr 02/09/20 10:28 02/09/20 14:28 02/09/20 18:28 Temperature 36.8 C 36.8 C 36.8 C Pulse Rate 64 67 91 Respiratory Rate 18 18 16 Blood Pressure 141/64 H 142/62 H 140/60 Pulse Oximetry 99 100 100 02/09/20 22:00 02/10/20 06:00 Temperature 37.0 C 37.0 C Pulse Rate 87 79 Respiratory Rate 18 18 Blood Pressure 149/74 H 106/68 Pulse Oximetry 97 96 Intake/Output Intake/Output: Intake & Output 02/07/20 02/08/20 02/09/20 02/10/20 23:59 23:59 23:59 23:59 Intake Total 1100 4280 4380 400 Output Total 930 1825 1150 Balance 1100 3350 2555 -750 Meds/Results Medications: Active Medications Generic Name Dose Route Start Last Admin Trade Name Freq PRN Reason Stop Dose Admin Acetaminophen 1,000 mg 02/08/20 21:00 02/10/20 04:04 Tylenol Tablet PO 1,000 mg Q6H [facility] Administration Al Hydrox/Mg Hydrox/Simethicone 30 ml 02/08/20 16:43 Mylanta PO Q6H PRN Indigestion Apixaban 2.5 mg 02/09/20 09:00 02/09/20 21:03 Eliquis PO 03/14/20 21:01 2.5 mg Q12HR [facility] Administration Atorvastatin Calcium 20 mg 02/09/20 21:00 02/09/20 21:03 Lipitor PO 20 mg [email or web address] [facility] Administration Bisacodyl 10 mg 02/08/20 16:43 Dulcolax Suppository RECTAL DAILY PRN Constipation Docusate Sodium 100 mg 02/08/20 17:00 02/09/20 17:15 Colace Capsule PO 100 mg BID [facility] Administration Famotidine 20 mg 02/08/20 21:00 02/09/20 21:03 Pepcid PO 20 mg Q12HR [facility] Administration Hydroxyzine HCl 50 mg 02/08/20 16:43 Atarax Tablet PO Q4H PRN Itching Lisinopril 20 mg 02/08/20 09:00 02/09/20 09:14 Prinivil PO 20 mg DAILY [facility] Administration Magnesium Hydroxide 30 ml 02/08/20 16:43 Milk Of Magnesia PO BID PRN Constipation Morphine Sulfate 2 mg 02/08/20 16:43 Morphine Sulfate Inj IV PUSH Q3H PRN Pain Rated 7-10 Multivitamins/Minerals 1 tablet 02/08/20 09:00 02/09/20 09:14 Ocuvite PO 1 tablet DAILY [facility] Administration Naloxone HCl 0.1 mg 02/08/20 16:43 Narcan IV PUSH Q2M PRN Opiate Reversal Ondansetron HCl 4 mg 02/08/20 16:43 Zofran Inj IV PUSH Q4H PRN Nausea And Vomiting Oxycodone HCl 5 mg 02/08/20 16:43 Roxicodone Ir Tablet PO Q4H PRN Pain Rated 4-6 Oxycodone HCl 5 mg 02/08/20 16:43 02/10/20 04:04 Roxicodone Ir Tablet PO 5 mg Q4H [facility] Administration Polyethylene Glycol 17 gm 02/09/20 09:00 02/09/20 09:15 Miralax PO 17 gm QAM [facility] Administration Radiology Results: ITS Impressions Lumbar Spine CT 02/07/20 15:34 IMPRESSION: 1. No acute lumbar findings. 2. Chronic appearing T12 compression fracture. 3. Spondylosis mostly L4-5 with moderate to severe right neural foraminal stenosi
[2020-02-10] MEDS: polyethylene glycoL 3350 17 GM POWD.PACK PO (08:50)
[2020-02-10] MEDS: lisinopriL 20 MG TABLET PO (08:50)
[2020-02-10] MEDS: DOCUSATE SODIUM 100 MG CAPSULE PO (08:50)
[2020-02-10] MEDS: APIXABAN 2.5 MG TABLET PO (08:50)
[2020-02-10] MEDS: FAMOTIDINE 20 MG TABLET PO (08:50)
[2020-02-10] MEDS: OPTI-GEN TAB 1 TABLET PO (08:50)
[2020-02-10] MEDS: BISACODYL 10 MG SUPPOSITORY RECTAL (10:59)
--- NOTE | 2020-02-10 14:41 | PM.DS ---
DS: Admitting Diagnosis Admitting Diagnosis Admitting Diagnosis: Fracture of unspecified part of neck of left femur, initial encounter for closed fracture DS: Discharge Diagnosis Discharge Diagnosis (1) Closed fracture of left hip: Code(s): S72.002A - Fracture of unspecified part of neck of left femur, initial encounter for closed fracture Status: Acute Assessment and Plan: 02/09/20 15:07 Patient is cleared for surgery. I just wanted chest x-ray prior to him going to surgery. He has no signs and symptoms of COVID at this time. Continue with IV fluids and pain medication as well as nausea medicine. Patient will be NPO after midnight. He was nauseated so I do not think Gavi tonight but he can eat tonight home be NPO. I will resume his home medications for tonight. on 02/07 patient was seen by orthopedic surgeon had ORIF today POD #1, is feeling better still complains of pain in the hip denies any fever or chills, was able to participate in physical therapy today patient is seen by orthopedic surgeon plan is to continue present management reassess in couple of days to see patient will benefit from going to rehab or going home (2) HTN (hypertension) with goal to be determined: Code(s): I10 - Essential (primary) hypertension Status: Chronic Assessment and Plan: will resume his lisinopril. (3) Hyperlipidemia: Code(s): E78.5 - Hyperlipidemia, unspecified Status: Chronic Assessment and Plan: Continue with atrial of a statin. (4) Iron deficiency anemia: Code(s): D50.9 - Iron deficiency anemia, unspecified Status: Chronic Assessment and Plan: Continue to monitor his H&H. (5) Gout: Code(s): M10.9 - Gout, unspecified Status: Chronic Assessment and Plan: Not currently on any medications. (6) Compression fracture: Status: Chronic Assessment and Plan: Appears to be chronic. DS: Summary Hospital Course Reason for hospitalization: Priscilla Dennis is a 74 year old male who stated that he was in his garage and he got on a 3 step ladder. The patient stated that he was reaching for some light bulbs on a shelf. The patient stated that he believes that he got down to the 2nd wrong and then he went to step-down he believes on the 1st wrung and fell off and landed on his left hip. The patient stated that laid there for a few minutes to see if he could possibly get up. After he was unable to get up he uses cell phone because to come back home. He stated he does not have a syncopal episode and that he did not lose consciousness or hit his head. Left hip acute nondisplaced intratrochanteric fracture extending to the subtrochanteric region. Mildly comminuted mildly displaced greater trochanteric fracture. Shows a left femoral intertrochanteric fracture which continues inferiorly laterally from the lesser trochanter. Mild displacement of the greater trochanter. Lumbar spine was read as no acute lumbar findings. Chronic appearing T12 compression fracture. Spondylosis mostly L4 and L5 with moderate to severe right neural foraminal stenosis at that level. 12.6 and 40.2 the patient stated that he has been taking iron and he has a history of iron deficiency anemia. He stated that in 2017 he did have a blood transfusion but is blood count initially came up.IV fluids were started in the emergency room. The patient was given IV morphine and IV Tylenol. The patient was having hiccups once he reached the medical floor and felt like he was going to throughout. Date of service 02/07/2020 Hospital Course: 02/09/20 15:07 Patient is cleared for surgery. I just wanted chest x-ray prior to him going to surgery. He has no signs and symptoms of COVID at this time. Continue with IV fluids and pain medication as well as nausea medicine. Patient will be NPO after midnight. He was nauseated so I do not think Gavi beltran but he can eat tonight home be NPO.
--- NOTE | 2020-02-10 15:50 | PC.NURSE ---
Pt is being discharged at this time. Pt has had IV removed, discharge paperwork reviewed, and opportunity for questions provided. Pt was educated on eliquis/blood thinner and exhibited good understanding. Pt was assisted to the front door by staff, and assisted to 's car.
== END 2020-02-10 15:50 | disposition home or self-care (01) | DRG 482 ==
LOC: ANHED 17:37 → ANH3MEDSUR 17:47
PROVIDERS: Emergency Medicine Emergency Medical Services; Nurse Practitioner; Orthopaedic Surgery; Physician Assistant Surgical; Admitting Provider Family Medicine; Emergency Provider Emergency Medicine; PCP Internal Medicine; Visit Provider Family Medicine
PROC: 0QH736Z Insertion of Intramedullary Internal Fixation Device into Left Upper Femur, Percutaneous Approach (ICD-10-PCS; CPT 27245; principal; 2020-02-08 13:30)
DX: S72.145A Nondisplaced intertrochanteric fracture of left femur, initial encounter for closed fracture (principal); S72.112A Displaced fracture of greater trochanter of left femur, initial encounter for closed fracture; W11.XXXA Fall on and from ladder, initial encounter; D50.9 Iron deficiency anemia, unspecified; I10 Essential (primary) hypertension; E78.5 Hyperlipidemia, unspecified; M10.9 Gout, unspecified; Z96.612 Presence of left artificial shoulder joint
CPT/HCPCS: 36415; 71045; 72131; 73502; 73700; 80048; 80053; 82306; 83735; 84443; 85014; 85018; 85025; 85027; 85610; 85730; 86850; 86900; 86901; 93005; 96361; 96365; 96375; 96376; 97110; 97116; 97161; 97165; 97530; 97535; 99285; A9270; C1713; G0378; J0131; J0690; J1100; J1170; J2270; J2405; J2704; J3010; J3370; J7030; J7120

== ENCOUNTER 2023-11-04 09:53 | Observation (INO) | payer MEDICARE, SELFPAY ==
[2023-11-04] VITALS (20 sets, daily range): BP systolic 101–140; BP diastolic 48–65; PULSE 68–107; RESP 12–22; TEMP 36.3–37; O2SAT 96–100; BMI 26.5
[2023-11-04 10:49] LABS: Basophils Absolute Auto 0.1 K/mm3 (0.0-0.1); Basophils Percent Auto 0.7 % (0.2-1.2); Eosinophils Absolute Auto 0.2 K/mm3 (0-0.3); Eosinophils Percent Auto 1.8 % (0-4.4); Immature Granulocyte Absolute 0.04 K/mm3 (0.00-0.031); Immature Granulocyte Percent A 0.5 % (0-0.5); Lymphocytes Absolute Auto 1.42 K/mm3 (0.9-3.2); Lymphocytes Percent Auto 17.4 % (18.3-44.2); Mean Corpuscular Hemoglobin 22.8 pg (26-34); Mean Corpuscular Volume 81.4 fl (80-100); Mean Platelet Volume 10.2 fl (7.4-10.4); Monocytes Absolute Auto 0.6 K/mm3 (0.1-0.6); Monocytes Percent Auto 7.6 % (2.6-8.5); Neutrophils Absolute Auto 5.9 K/mm3 (1.3-6.7); Platelet Count Result 313 k/mm3 (150-375); Red Blood Count 2.15 M/mm3 (4.6-6.20); Red Cell Distribution Width 15.2 % (11.5-14.5); White Blood Count 8.1 K/mm3 (4.5-10.0)
[2023-11-04 10:55] LABS: Hematocrit 17.5 % (42.0-52.0); Hemoglobin 4.9 g/dL (14.0-18.0)
[2023-11-04 10:59] LABS: Alanine Aminotransferase 18 U/L (6-50); Albumin Level 3.6 g/dL (3.5-5.1); Alkaline Phosphatase 62 U/L (38-126); Anion Gap 8 mmol/L (8-16); Aspartate Amino Transferase 23 U/L (17-59); Bilirubin,Total 0.7 mg/dL (0.2-1.3); Blood Urea Nitrogen 29 mg/dL (9-20); Calcium 8.7 mg/dL (8.4-10.2); Carbon Dioxide 20 mmol/L (22-30); Chloride 109 mmol/L (98-107); Estimated Glomerular Filt Rate 53; Glucose 204 mg/dL (65-110); Potassium 4.1 mmol/L (3.4-5.0); Sodium 137 mmol/L (137-145)
[2023-11-04 11:00] LABS: Anisocytosis 1+ (NORMAL); Hypochromasia 2+ (NORMAL); Platelet Estimate Adequate (Adequate); Schistocytes None Seen (NORMAL)
[2023-11-04 11:02] LABS: INR 1.1; Prothrombin Time 14.4 Seconds (11.1-14.7)
[2023-11-04 11:31] LABS: Lactate Dehydrogenase 129 U/L (120-246)
--- NOTE | 2023-11-04 11:33 | ED.GENADULT ---
HPI - General Adult General Chief complaint: Recheck/Abnormal Lab/Rx Stated complaint: low HGB Time Seen by Provider: 11/04/23 10:16 History of Present Illness HPI narrative: Patient is a 78-year-old male who presents ER with weakness and abnormal outpatient labs. He was told he had anemia requiring blood transfusion. This has happened to in the past. He is to be on oral iron tablets but does not take them. No dark black stools. No melena. No syncope. He has become more pale and weak and short of breath over last few days according to the . Related Data Home Medications Medication Instructions Recorded Confirmed atorvastatin 20 mg tablet 20 mg PO 3XW 02/07/20 02/07/20 lisinopril 20 mg tablet 20 mg PO DAILY 02/07/20 02/07/20 [id number]-[id number] 300 mcg-K 60 1 tablet PO DAILY 02/07/20 02/07/20 mcg-lycop 600 mcg-lutein 300 mcg tablet (Centrum Silver Men) metformin 500 mg tablet mg 11/04/23 Allergies Allergy/AdvReac Type Severity Reaction Status Date / Time No Known Allergies Allergy Unknown Verified 11/04/23 10:39 Review of Systems Review of Systems: All systems reviewed & are unremarkable except as noted in HPI and below Constitutional: Constitutional: Denies chills, Reports fatigue, Denies fever(s) and Reports weakness ENT: Denies nasal congestion and Denies sore throat Cardiovascular: Cardiovascular: Reports no additional cardiovascular complaints Respiratory: Respiratory: Denies cough, Reports dyspnea and Denies wheezing Gastrointestinal: Gastrointestinal: Reports no additional gastrointestinal complaints Genitourinary: Genitourinary: Reports no additional male genitourinary complaints Neurologic: Denies syncope, Denies headache(s), Denies focal weakness and Denies numbness [facility] Past Medical History Medical History (Updated 11/04/23 @ 15:00 by Robson Archibald MD) Anemia Compression fracture T12 Gout HTN (hypertension) with goal to be determined Hyperlipidemia Iron deficiency anemia Surgical History Surgical History History of left shoulder replacement Family History Family History Father Acute myocardial infarction Gout Mother Cerebral brain hemorrhage Social History Social History Social History: The patient is and lives with his . She is a durable power contract attorney for healthcare. The patient desires to be a full code. The patient has 4 children. He worked for [employer]. He works in the [employer] department. Lifelong nonsmoker. He used to drink but not anymore no marijuana are illegal substances. Smoking status: Never smoker Alcohol intake: never Substance use: never Occupation/Education: retired Gender identity (if verbalized by the patient): Male Spiritual care concerns: No Exam Narrative: GENERAL: Well-appearing, well-nourished, and in no acute distress. HEAD: Normocephalic, atraumatic. EYES: PERRL and EOMI. Pale conjunctiva. ENT: Mucous membranes moist. CHEST: Clear to auscultation. No respiratory distress. HEART: Regular rate and rhythm. Normal peripheral pulses. ABDOMEN: Soft, nontender, nondistended. Occult + blood in stool. NO gross blood. EXTREMITIES: Normal range of motion. No edema. SKIN: Warm, dry, no rash. NEURO: Alert and oriented x3. PSYCH: Normal mood and affect. Course Course Emergency Course: patient resting comfortably. Informed of results. Discussed treatment plan. GI consulted. Admit to the hospitalist service. Blood ordered for transfusion. Vital Signs Vital signs: Vital Signs Temperature 97.3 F L 11/04/23 10:12 Pulse Rate 107 H 11/04/23 10:12 Respiratory Rate 18 11/04/23 10:12 Blood Pressure 130/54 L 11/04/23 10:12 Pulse Oximetry 100 11/04/23 10:12 Oxygen Delivery Room Air 11/04/23 10:12
[2023-11-04] MEDS: PANTOPRAZOLE SODIUM IV 40 MG VIAL IV PUSH ×2 (11:42→20:42)
[2023-11-04] MEDS: TUBING, BLOOD SET 1 EACH XX ×2 (12:08→14:00)
[2023-11-04] MEDS: SODIUM CHLORIDE 0.9% IV 250 ML 30 ML IV CONT (12:08)
[2023-11-04 12:23] LABS: Iron 16 ug/dL (49-181)
[2023-11-04 12:34] LABS: Percent Iron Saturation 4 % (20-50)
[2023-11-04 12:39] LABS: Folic Acid > 20.0 ng/mL (2.76->20)
[2023-11-04 13:00] LABS: Ferritin 4.53 ng/mL (11.1-264)
[2023-11-04] MEDS: SODIUM CHLORIDE 0.9% IV 250 ML 100 ML (14:00)
--- NOTE | 2023-11-04 15:27 | PM.IMHP ---
H&P: HPI History of Present Illness Date/Time: 11/04/23 15:27 Chief Complaint: Abnormal lab, generalized weakness Narrative: 78 y/o M presents here with low hemoglobin, insomnia, generalized weakness, palpitations with PMH of JACOB, gout, HTN, and HLD. DM? Patient presents here for evaluation of recurrent anemia. Patient had outpatient blood work performed per his PCP office, gregg Stone MD in [place]. Hemoglobin low, initial blood work done in ED showed hgb of 4.9. Hgb 10.5-10.9 at baseline per chart review. Patient is supposed to be on a iron supplementation, however reports noncompliance due to mis-education. Discovered to be anemic in 2017 requiring a transfusion. Anemia secondary to JACOB, no GI bleed, and patient believed he only needed to take the iron supplement for 6 weeks. Reports intermittent/infrequent dark/tarry stools over the last few months. Cooperated it when he would take an iron supplement OTC and believed he was defecating the iron out and that it was not working when his stool would be dark. No BRBPR. Patient is not on anticoagulation. Reports associated generalized weakness, dyspnea, and pallor over the last few weeks. No syncope, chest pain, or palpitations. Initial VS at presentation: 97.3 F, HR 107, RR 18, 130/54, 100% on RA. Over course of ED evaluation, HR improved and BP remained soft. ED workup showed acute anemia with hemoglobin of 4.9, hematocrit 17.5, RBC 2.15, creatinine 1.3, glucose 204, and TSH WNL. Stool occult was positive. Review of Systems Review of Systems: All systems reviewed & are unremarkable except as noted in HPI and below PMFSH Past Medical History Medical History (Updated 11/04/23 @ 22:23 by Kerri Westbrook APRN) Arthritis Compression fracture T12 DM2 (diabetes mellitus, type 2) Gout HTN (hypertension) with goal to be determined Hyperlipidemia Iron deficiency anemia Skin cancer Surgical History Surgical History (Updated 11/04/23 @ 22:23 by Kerri Westbrook APRN) History of cataract extraction with lens replacement History of cholecystectomy History of left shoulder replacement Family History Family History Father Acute myocardial infarction Gout Mother Cerebral brain hemorrhage Social History Social History Social History: The patient is and lives with his . She is a durable power mergers and acquisitions attorney for healthcare. The patient desires to be a full code. The patient has 4 children. He worked for [employer]. He works in the [employer] department. Lifelong nonsmoker. He used to drink but not anymore no marijuana are illegal substances. Smoking status: Never smoker Alcohol intake: former Substance use: never Do You Feel Safe in your Home?: Yes Lack of Transportation: No Lack of Food: Never True Current Housing: I Have Housing Concerned About Future Housing: No Difficulty Paying Gas/Electric Bills: No Difficulty Paying for Meds: No Currently Unemployed: No Education: Trade/Vocational Certificate Difficulty w/ Childcare or Family Care: No Occupation/Education: retired Gender identity (if verbalized by the patient): Male Spiritual care concerns: No Meds Home Medications and Allergies Home Medications Medication Instructions Recorded Confirmed Type atorvastatin 20 mg tablet 20 mg PO 3XW 02/07/20 11/04/23 History lisinopril 20 mg tablet 20 mg PO DAILY 02/07/20 02/07/20 History bkwlkoaz-qd-bklyw 300 mcg-K 60 1 tablet PO DAILY 02/07/20 11/04/23 History mcg-lycop 600 mcg-lutein 300 mcg tablet (Centrum Silver Men) docusate sodium 100 mg capsule 100 mg PO BID #60 caps 02/10/20 Rx famotidine 20 mg tablet 20 mg PO Q12HR #60 tabs 02/10/20 Rx oxycodone 5 mg tablet 5 mg PO Q4H PRN Pain Rated 4-6 #40 02/10/20 Rx tabs polyethylene glycol 3350 17 gram 17 g PO QAM #30 ea 02/10/20 Rx oral powder pa
--- NOTE | 2023-11-04 15:39 | ADMGEN ---
This patient, Priscilla Dennis, was admitted to 2 Medical Room 242-. Patient/family oriented to hospital policies and general routines including ID bracelet, bed and alarms, visiting hours, pain management, procedures, bathroom and other care routines, personal items, smoking policy, room service/diet, and visiting hours. Information on how to activate the Rapid Response Team has been discussed. Patient/Family are encouraged to report perceived risks to care and to ask questions if they do not understand what they are told or what they should do.
[2023-11-04 16:00] LABS: Hematocrit 28.1 % (42.0-52.0); Hemoglobin 8.7 g/dL (14.0-18.0)
--- NOTE | 2023-11-04 16:12 | WPDGICN ---
Assessment and Plan Assessment and plan (1) Occult GI bleeding: Code(s): R19.5 - Other fecal abnormalities Status: Acute Assessment and Plan: His stool was Hemoccult positive but only trace. He has seen no blood in his stools. (2) Iron deficiency anemia: Code(s): D50.9 - Iron deficiency anemia, unspecified Status: Chronic Assessment and Plan: He has been on iron in the past but had stopped it recently. His hemoglobin just a few months ago was over 12 today it is 4.9 and up to 8.7 after transfusion. Plan Colonoscopy to be done tomorrow GI Consult Note Consult date/time: 11/04/23 16:12 HPI: Priscilla Dennis is a 78 year old male presented to emergency room today complaining of weakness and being short of breath. he began feeling short of breath about 3 weeks ago. He was found to be markedly anemic. He states that he has had problems in the past with anemia and has had blood transfusions. He denies seeing blood in his stools or having black tarry stools he denies dysphagia heartburn or abdominal pain. He does not take anti-inflammatories regularly and does not take an anticoagulant. Review of Systems Review of Systems: All systems reviewed & are unremarkable except as noted in HPI and below PMFSH Past Medical History Medical History Compression fracture T12 Gout HTN (hypertension) with goal to be determined Hyperlipidemia Iron deficiency anemia Surgical History Surgical History History of left shoulder replacement Family History Family History Father Acute myocardial infarction Gout Mother Cerebral brain hemorrhage Social History Social History Social History: The patient is and lives with his . She is a durable power baking powder mixer for healthcare. The patient desires to be a full code. The patient has 4 children. He worked for still male. He works in the [employer] department. Lifelong nonsmoker. He used to drink but not anymore no marijuana are illegal substances. Smoking status: Never smoker Alcohol intake: former Substance use: never Do You Feel Safe in your Home?: Yes Lack of Transportation: No Lack of Food: Never True Current Housing: I Have Housing Concerned About Future Housing: No Difficulty Paying Gas/Electric Bills: No Difficulty Paying for Meds: No Currently Unemployed: No Education: Trade/Vocational Certificate Difficulty w/ Childcare or Family Care: No Occupation/Education: retired Gender identity (if verbalized by the patient): Male Spiritual care concerns: No Meds Home Medications and Allergies Home Medications Medication Instructions Recorded Confirmed Type atorvastatin 20 mg tablet 20 mg PO 3XW 02/07/20 11/04/23 History lisinopril 20 mg tablet 20 mg PO DAILY 02/07/20 02/07/20 History smctmhzv-bd-mmdxn 300 mcg-K 60 1 tablet PO DAILY 02/07/20 11/04/23 History mcg-lycop 600 mcg-lutein 300 mcg tablet (Centrum Silver Men) docusate sodium 100 mg capsule 100 mg PO BID #60 caps 02/10/20 Rx famotidine 20 mg tablet 20 mg PO Q12HR #60 tabs 02/10/20 Rx oxycodone 5 mg tablet 5 mg PO Q4H PRN Pain Rated 4-6 #40 02/10/20 Rx tabs polyethylene glycol 3350 17 gram 17 g PO QAM #30 ea 02/10/20 Rx oral powder packet (Miralax) acetaminophen 500 mg tablet 1,000 mg PO Q6H PRN Pain (Scale 11/04/23 11/04/23 History Score 1-3) metformin 500 mg tablet mg 11/04/23 History Allergies Allergy/AdvReac Type Severity Reaction Status Date / Time No Known Allergies Allergy Unknown Verified 11/04/23 10:39 Vital Signs Vital Signs - 24 hr 11/04/23 10:12 11/04/23 10:35 11/04/23 12:09 Temperature 36.3 C L 36.3 C L Pulse Rate 107 H 93 80 Respiratory Rate 18 22 H 20 Blood Pre
[2023-11-04] MEDS: POLYSACCHARIDE IRON COMPLEX 150 MG CAPSULE PO (17:30)
[2023-11-04] MEDS: BISACODYL 5 MG TABLET EC 15 MG PO (18:21)
[2023-11-04] MEDS: polyethylene glycoL 3350 238 GM BOTTLE PO (18:34)
[2023-11-05] VITALS (13 sets, daily range): BP systolic 95–156; BP diastolic 43–82; PULSE 72–84; RESP 16–20; TEMP 36.3–37.3; O2SAT 97–100
[2023-11-05 05:19] LABS: Basophils Absolute Auto 0.1 K/mm3 (0.0-0.1); Basophils Percent Auto 0.6 % (0.2-1.2); Eosinophils Absolute Auto 0.2 K/mm3 (0-0.3); Eosinophils Percent Auto 2.2 % (0-4.4); Hematocrit 27.8 % (42.0-52.0); Hemoglobin 8.6 g/dL (14.0-18.0); Immature Granulocyte Absolute 0.03 K/mm3 (0.00-0.031); Immature Granulocyte Percent A 0.3 % (0-0.5); Lymphocytes Absolute Auto 1.78 K/mm3 (0.9-3.2); Lymphocytes Percent Auto 16.5 % (18.3-44.2); Mean Corpuscular HGB Conc 30.9 g/dl (32-36); Mean Corpuscular Hemoglobin 25.6 pg (26-34); Mean Corpuscular Volume 82.7 fl (80-100); Mean Platelet Volume 9.8 fl (7.4-10.4); Monocytes Absolute Auto 1.2 K/mm3 (0.1-0.6); Monocytes Percent Auto 10.8 % (2.6-8.5); Neutrophils Absolute Auto 7.5 K/mm3 (1.3-6.7); Neutrophils Percent Auto 69.6 % (45.5-73.1); Platelet Count Result 302 k/mm3 (150-375); Red Blood Count 3.36 M/mm3 (4.6-6.20); Red Cell Distribution Width 15.8 % (11.5-14.5); White Blood Count 10.8 K/mm3 (4.5-10.0)
[2023-11-05 05:29] LABS: Anion Gap 6 mmol/L (8-16); Blood Urea Nitrogen 19 mg/dL (9-20); Calcium 9.3 mg/dL (8.4-10.2); Carbon Dioxide 24 mmol/L (22-30); Chloride 109 mmol/L (98-107); Estimated CRCL calculation 41 ml/min; Estimated Glomerular Filt Rate 53; Glucose 109 mg/dL (65-110); Potassium 4.2 mmol/L (3.4-5.0); Sodium 139 mmol/L (137-145)
[2023-11-05] MEDS: MAGNESIUM CITRATE 300 ML BTL 180 ML PO (05:35)
[2023-11-05 05:42] LABS: Hemoglobin A1C 5.5 % (<5.7)
[2023-11-05] MEDS: PANTOPRAZOLE SODIUM IV 40 MG VIAL IV PUSH ×2 (08:45→20:33)
[2023-11-05 08:47] LABS: Glucose Point of Care 126 mg/dl (65-105)
--- NOTE | 2023-11-05 11:00 | PM.IMPN ---
Progress Note: A&P Assessment and Plan (1) Occult GI bleeding: Code(s): R19.5 - Other fecal abnormalities Status: Acute Assessment and Plan: - stool occult+ - hgb 4.9 -> 8.7 (post-transfusion x2) - transfused 2 units by ED - trend CBC - start pantoprazole IVP 40 mg Q12H - GI consulted, Wander ALDRICH. awaiting recs. colonoscopy planned for tomorrow, last done in 2017 - clear liquid diet, NPO at 0800 tomorrow - tele monitoring - 11/05: Pt's Hgb this AM on repeat is 8.6. Awaiting colonoscopy currently without any s/s of active bleeding. Pt asymptomatic at this time. (2) Anemia: Qualifiers: Anemia type: iron deficiency Iron deficiency anemia type: unspecified iron deficiency Qualified Code(s): D50.9 - Iron deficiency anemia, unspecified Code(s): D64.9 - Anemia, unspecified Status: Acute Assessment and Plan: - hgb 4.9 -> 8.7 - hct 17.5, RBC 2.15, MCV 81.4, MCHC 28 - iron 16, TIBC 440, % saturation 4, ferritin 0.53 - B12 435 - Folate > 20 - TSH 1.410 - restart iron supplement: Iron 150 mg b.i.d. WM. Docusate PRN for constipation. Will likely need re-education at d/c on iron supplements/JACOB. - see above, occult GI bleed - trend CBC - 11/05: See plan for #1. Await results of Colonoscopy. Will need Iron supplementation upon discharge. Continue to trend CBC, monitor vitals and transfuse as needed. (3) DM2 (diabetes mellitus, type 2): Code(s): E11.9 - Type 2 diabetes mellitus without complications Status: Chronic Assessment and Plan: - initial glucose 204 - hypoglycemia protocol - POC blood glucose ACHS - home medication held - metformin - correct regimen ordered - low/high dose TIDWM and HS - A1C not on file, ordered - 11/05: A1C is 5.5. Continue current SSI, resume home regimen upon discharge. (4) HTN (hypertension) with goal to be determined: Code(s): I10 - Essential (primary) hypertension Status: Chronic Assessment and Plan: Continue home Lisinopril. Time Spent With Patient Time with patient: 15 - 25 minutes Subjective Date/time seen: 11/05/23 1045 Interval history: This very pleasant 78 year old male pt was examined at the bedside today in interval assessment after being admitted to the hospital for acute on chronic anemia with Hgb of 4.9 and a heme positive stool. Pt endorses several days to a week of generalized weakness and fatigue prior, citing that he had to stop and rest while he was walking due to his fatigue. He does have a hx of JACOB and has taken Iron in the past. He has been admitted to the hospital and is currently awaiting a colonoscopy by Dr. Viramontes. He denies any pain, active bleeding or any dyspnea or other distress. Review of Systems Review of Systems: All systems reviewed & are unremarkable except as noted in HPI and below Exam Narrative: CONSTITUTIONAL: Pleasant, elderly male pt lying supine in bed at this time without any complaints or distress awaiting colonoscopy. HEENT: Head is atraumatic and normocephalic, External ears without lesion, Nose midline and posterior oropharynx clear and patent. EYES: PERRLA, EOM's intact NECK: FROM, Supple, No LN or JVD RESPIRATORY: CTAB in all ridley CARDIO: RRR, S1 and S2, no S3, S4, m,r,g,h. GI: Soft, NT, not distended and BS present in all four quads. SKIN: Clear without lesion. No rashes and skin is otherwise intact. EXTREMITY: Freely and equally MAEW without any edema. NEURO: Non-focal, Grossly intact PSYCH: Alert and oriented x4, appropriate affect Objective Data Vital Signs Vital Signs: Vital Signs - 24 hr 11/04/23 12:09 11/04/23 12:25 11/04/23 13:02 Temperature 97.3 F L 97.6 F Pulse Rate 80 74 73 Respiratory Rate 20 16 18 Blood Pressure 101/51 L 123/48 L Pulse Oximetry 100 100 100 Oxygen Delivery 11/04/23 13:15 11/04/23 13:25 11/04/23 13:43 Temperature 97.4 F L 97.4 F L Pulse Rate 71 68 68 Respiratory Rate 14 20 16 Blood Pres
[2023-11-05 11:56] LABS: Glucose Point of Care 108 mg/dl (65-105)
[2023-11-05] MEDS: LACTATED RINGERS 1,000 ML 150 ML IV CONT (13:20)
[2023-11-05 13:23] LABS: Glucose Point of Care 103 mg/dl (65-105)
[2023-11-05] MEDS: SIMETHICONE ORAL SUSPENSION 20 MG/0.3 ML 30 ML BOTTLE 0.6 ML PO (14:25)
--- NOTE | 2023-11-05 14:25 | WPDANESEPPF ---
Anes - Initial Pre Proc Eval Procedure: Operation Date: 11/05/23 15:00 Proposed Procedures p Colonoscopy - Brian Viramontes MD Date/Time: 11/05/23 14:25 Surgeon: LANE Sands Pre Op Diagnosis: Occult GI Bleed,Anemia Patient Data Age: 78 Gender: M Height: 1.73 m Weight: 79.1 kg Last Vital Signs Temp 97.3 F L 11/05/23 13:23 Pulse 84 11/05/23 13:23 Resp 20 11/05/23 13:23 BP 156/82 H 11/05/23 13:23 Pulse Ox 100 11/05/23 13:23 O2 Del Method Room Air 11/05/23 13:23 Allergies Allergy/AdvReac Type Severity Reaction Status Date / Time No Known Allergies Allergy Unknown Verified 11/05/23 13:21 Home Medications Medication Instructions Recorded Confirmed Type atorvastatin 20 mg tablet 20 mg PO 3XW 02/07/20 11/04/23 History lisinopril 20 mg tablet 20 mg PO DAILY 02/07/20 11/04/23 History ywxwhjfa-ah-nexxr 300 mcg-K 60 1 tablet PO DAILY 02/07/20 11/04/23 History mcg-lycop 600 mcg-lutein 300 mcg tablet (Centrum Silver Men) docusate sodium 100 mg capsule 100 mg PO BID #60 caps 02/10/20 11/04/23 Rx famotidine 20 mg tablet 20 mg PO Q12HR #60 tabs 02/10/20 11/04/23 Rx oxycodone 5 mg tablet 5 mg PO Q4H PRN Pain Rated 4-6 #40 02/10/20 11/04/23 Rx tabs polyethylene glycol 3350 17 gram 17 g PO QAM #30 ea 02/10/20 11/04/23 Rx oral powder packet (Miralax) acetaminophen 500 mg tablet 1,000 mg PO Q6H PRN Pain (Scale 11/04/23 11/04/23 History Score 1-3) metformin 500 mg tablet 50 mg PO DAILY 11/04/23 11/04/23 History Laboratory Tests 11/04/23 11/04/23 11/05/23 10:37 15:51 04:40 WBC 10.8 H K/mm3 (4.5-10.0) RBC 3.36 L M/mm3 (4.6-6.20) Hgb 8.7 L D g/dL 8.6 L g/dL (14.0-18.0) (14.0-18.0) Hct 28.1 L % 27.8 L % (42.0-52.0) (42.0-52.0) MCV 82.7 fl (80-100) MCH 25.6 L D pg (26-34) MCHC 30.9 L g/dl (32-36) RDW 15.8 H % (11.5-14.5) Plt Count 302 k/mm3 (150-375) MPV 9.8 fl (7.4-10.4) Immature Gran % (Auto) 0.3 % (0-0.5) Neut % (Auto) 69.6 % (45.5-73.1) Lymph % (Auto) 16.5 L % (18.3-44.2) [place] % (Auto) 10.8 H % (2.6-8.5) Eos % (Auto) 2.2 % (0-4.4) Baso % (Auto) 0.6 % (0.2-1.2) Lymph # (Auto) 1.78 K/mm3 (0.9-3.2) [place] # (Auto) 1.2 H K/mm3 (0.1-0.6) Eos # (Auto) 0.2 K/mm3 (0-0.3) Baso # (Auto) 0.1 K/mm3 (0.0-0.1) Abs Immat Gran (auto) 0.03 K/mm3 (0.00-0.031) Absolute Neuts (auto) 7.5 H K/mm3 (1.3-6.7) Absolute Nucleated RBC 0.0 K/mm3 (0.0-0.012) Nucleated RBC % 0.0 % (0.0-0.2) Sodium 139 mmol/L (137-145) Potassium 4.2 mmol/L (3.4-5.0) Chloride 109 H mmol/L (98-107) Carbon Dioxide 24 mmol/L (22-30) Anion Gap 6 L mmol/L (8-16) BUN 19 D mg/dL (9-20) Creatinine 1.30 mg/dL (0.7-1.3) Estim Creat Clear Calc 41 ml/min Estimated GFR 53 L (59 - ) Glucose 109 mg/dL (65-110) POC Capillary Glucose Hemoglobin A1c 5.5 % (<5.7) Calcium 9.3 mg/dL (8.4-10.2) Crossmatch See Detail 11/05/23 11/05/23 11/05/23 08:41 11:50 13:21 WBC RBC Hgb Hct MCV MCH MCHC RDW Plt Count MPV Immature Gran % (Auto) Neut % (Auto) Lymph % (Auto) [place] % (Auto) Eos % (Auto) Baso % (Auto) Lymph # (Auto) [place] # (Auto) Eos # (Auto) Baso # (Auto) Abs Immat Gran (auto) Absolute Neuts (auto) Absolute Nucleated RBC Nucleated RBC % Sodium Potassium Chloride
[2023-11-05 14:56] LABS: Glucose Point of Care 104 mg/dl (65-105)
[2023-11-05 16:54] LABS: Glucose Point of Care 162 mg/dl (65-105)
--- NOTE | 2023-11-05 17:09 | PDONCCN ---
HPI - Date of Consult Date/Time: 11/05/23 17:10 Requesting Physician: LANE Sands Primary Care Provider: Chad FerraroMD - Consult Narrative Reason for consult: Iron deficiency anemia Narrative: Priscilla Dennis is a 78 year old male with history of gout, hypertension, hyperlipidemia and iron deficiency anemia came into the hospital with tiredness and fatigue with palpitation. Patient has a history of iron deficiency anemia diagnosed in 2017 is status post EGD and colonoscopy at that time. He was instructed to take oral iron but discontinued after his stool turned black several years ago. Labs on admission showed hemoglobin of 4.9. He denies any melena hematochezia. Colonoscopy was performed today that showed internal hemorrhoids diverticulosis without any bleeding. Review of Systems - Review of Systems All systems reviewed & are unremarkable except as noted in HPI and bel - Neurologic Reports weakness, Denies syncope, Denies headache(s), Denies focal weakness, Denies numbness PMFSH Medical History: Medical History (Last Updated 11/05/23 @ 11:[address]ands) Arthritis Compression fracture T12 DM2 (diabetes mellitus, type 2) Gout HTN (hypertension) with goal to be determined Hyperlipidemia Iron deficiency anemia Skin cancer Surgical History: Surgical History (Last Updated 11/04/23 @ 22:23 by Kerri Westbrook APRN) History of cataract extraction with lens replacement History of cholecystectomy History of left shoulder replacement Family History: Family History (Last Reviewed 11/04/23 @ 16:13 by Brian Viramontes MD) Father Acute myocardial infarction Gout Mother Cerebral brain hemorrhage - Social History Social History: Social History (Last Reviewed 11/04/23 @ 16:13 by Brian Viramontes MD) Gender Identity: Gender identity (if verbalized by the patient): Male Alcohol Use: Alcohol intake: former Substance Use: Substance use: never Others: Spiritual care concerns: No Oppucation/Education: Occupation/Education: retired Smoking Status: Smoking status: Never smoker Social Determinants of Health: Do You Feel Safe in your Home?: Yes Has the Lack of Transportation Kept You From Medical Appointments or From Getting Medications?: No Within the Past 12 Months, Were You Worried Whether Your Food Would Run Out Before You Got Money to Buy More?: Never True What is Your Housing Situation Today?: I Have Housing Are You Worried That in the Next 2 Months, You May Not Have Your Own Housing to Live In?: No Do You Have Trouble Paying Your Heating Or Electricity Bill?: No Do You Have Trouble Paying For Medicines?: No Are You Currently Unemployed and Looking for Work?: No Highest Level of Education Completed: Trade/Vocational Certific Do You Have Trouble With Childcare or the Care of a Family Member?: No Exam - Vital Signs Vital Signs - 24 hr 11/04/23 20:41 11/04/23 20:00 11/04/23 20:00 Temperature 37.0 C Pulse Rate 75 75 93 Respiratory Rate 20 20 Blood Pressure 140/58 L Pulse Oximetry 98 98 Oxygen Delivery Room Air 11/05/23 00:00 11/05/23 03:24 11/05/23 04:00 Temperature 37.1 C Pulse Rate 77 72 74 Respiratory Rate 18 Blood Pressure 135/58 L Pulse Oximetry 97 Oxygen Delivery 11/04/23 21:25 11/05/23 08:00 11/05/23 08:45 Temperature Pulse Rate 78 Respiratory Rate Blood Pressure Pulse Oximetry 98 Oxygen Delivery Room Air Room Air 11/05/23 12:00 11/05/23 13:23 11/05/23 14:33 Temperature 36.3 C L Pulse Rate 76 84 80 Respiratory Rate 20 16 Blood Pressure 156/82 H 101/56 L Pulse Oximetry 100 98 Oxygen Delivery Room Air Room Air 11/05/23 14:43 11/05/23 14:53 11/05/23 15:12 Temperature 36.8 C Pulse Rate 73 72 73 Respiratory Rate 18 18 16 Blood Pressure 95/73 L 113/43 L 135/63 Pulse Oximetry 100 100 100 Oxygen Deli
[2023-11-05] MEDS: POLYSACCHARIDE IRON COMPLEX 150 MG CAPSULE PO (17:39)
[2023-11-05] MEDS: IRON SUCROSE COMPLEX 500 MG in SODIUM CHLORIDE 0.9% IV 250 ML 79 MG IVPB (18:26)
[2023-11-05] MEDS: ACETAMINOPHEN 500 MG TABLET 1000 MG PO (20:59)
[2023-11-05 22:28] LABS: Glucose Point of Care 109 mg/dl (65-105)
[2023-11-06] VITALS: PULSE 118
[2023-11-06] MEDS: ACETAMINOPHEN 500 MG TABLET 1000 MG PO (03:39)
[2023-11-06 04:00] VITALS: PULSE 73
[2023-11-06 04:53] VITALS: BP 118/66; PULSE 80; RESP 20; TEMP 36.8; O2SAT 98
[2023-11-06 05:24] LABS: Basophils Absolute Auto 0.1 K/mm3 (0.0-0.1); Basophils Percent Auto 0.4 % (0.2-1.2); Eosinophils Absolute Auto 0.1 K/mm3 (0-0.3); Eosinophils Percent Auto 0.6 % (0-4.4); Hematocrit 32.2 % (42.0-52.0); Hemoglobin 9.6 g/dL (14.0-18.0); Immature Granulocyte Absolute 0.11 K/mm3 (0.00-0.031); Immature Granulocyte Percent A 0.6 % (0-0.5); Lymphocytes Absolute Auto 1.32 K/mm3 (0.9-3.2); Lymphocytes Percent Auto 7.8 % (18.3-44.2); Mean Corpuscular HGB Conc 29.8 g/dl (32-36); Mean Corpuscular Hemoglobin 25.3 pg (26-34); Mean Corpuscular Volume 84.7 fl (80-100); Mean Platelet Volume 10.5 fl (7.4-10.4); Monocytes Absolute Auto 1.5 K/mm3 (0.1-0.6); Monocytes Percent Auto 8.9 % (2.6-8.5); Neutrophils Absolute Auto 13.9 K/mm3 (1.3-6.7); Neutrophils Percent Auto 81.7 % (45.5-73.1); Platelet Count Result 333 k/mm3 (150-375); Red Cell Distribution Width 16.7 % (11.5-14.5)
[2023-11-06 05:36] LABS: Alanine Aminotransferase 15 U/L (6-50); Albumin Level 3.5 g/dL (3.5-5.1); Alkaline Phosphatase 78 U/L (38-126); Anion Gap 4 mmol/L (8-16); Aspartate Amino Transferase 24 U/L (17-59); Bilirubin,Total 1.3 mg/dL (0.2-1.3); Blood Urea Nitrogen 22 mg/dL (9-20); Calcium 9.1 mg/dL (8.4-10.2); Carbon Dioxide 25 mmol/L (22-30); Chloride 110 mmol/L (98-107); Estimated CRCL calculation 35 ml/min; Estimated Glomerular Filt Rate 45; Glucose 130 mg/dL (65-110); Magnesium 2.6 mg/dL (1.6-2.3); Potassium 4.4 mmol/L (3.4-5.0); Sodium 139 mmol/L (137-145)
[2023-11-06 08:00] VITALS: PULSE 66
[2023-11-06 08:24] LABS: Glucose Point of Care 110 mg/dl (65-105)
[2023-11-06] MEDS: POLYSACCHARIDE IRON COMPLEX 150 MG CAPSULE PO (08:33)
[2023-11-06] MEDS: OPTI-GEN TAB 1 TABLET PO (08:34)
[2023-11-06] MEDS: lisinopriL 20 MG TABLET PO (08:35)
--- NOTE | 2023-11-06 09:41 | PM.DS ---
DS: Admitting Diagnosis Discharge Date 11/06/2023 Admitting Diagnosis GI Bleed Anemia Weakness DS: Discharge Diagnosis Discharge Diagnosis (1) Occult GI bleeding: Code(s): R19.5 - Other fecal abnormalities Status: Acute Assessment and Plan: - stool occult+ - hgb 4.9 -> 8.7 (post-transfusion x2) - transfused 2 units by ED - trend CBC - start pantoprazole IVP 40 mg Q12H - GI consulted, Wander ALDRICH. awaiting recs. colonoscopy planned for tomorrow, last done in 2016 - clear liquid diet, NPO at 0800 tomorrow - tele monitoring - 11/05: Pt's Hgb this AM on repeat is 8.6. Awaiting colonoscopy currently without any s/s of active bleeding. Pt asymptomatic at this time. - 11/06: Pt's colonoscopy was completed by Dr. Viramontes and it was found that pt had no active bleeding. Internal Hemorrhoids, and Diverticulosis without perforation or abscess were found, but they also were not a source for bleeding. It was recommended by GI to have Hematology consult. I consulted Dr. Shaw who saw the pt at the bedside and ordered Iron infusion and will follow up with him in the office. He believes his anemia is due to longstanding JACOB in which the pt stopped taking his Iron supplementation for over a year ago because it was making his stools black. Therefore pt does not have a true GI Bleed and it is ruled out by direct visualization with Colonoscopy. I agree with Dr. Shaw, however, that the pt should have outpt EGD as well in the near future. (2) Anemia: Qualifiers: Anemia type: iron deficiency Iron deficiency anemia type: unspecified iron deficiency Qualified Code(s): D50.9 - Iron deficiency anemia, unspecified Code(s): D64.9 - Anemia, unspecified Status: Acute Assessment and Plan: - hgb 4.9 -> 8.7 - hct 17.5, RBC 2.15, MCV 81.4, MCHC 28 - iron 16, TIBC 440, % saturation 4, ferritin 0.53 - B12 435 - Folate > 20 - TSH 1.410 - restart iron supplement: Iron 150 mg b.i.d. WM. Docusate PRN for constipation. Will likely need re-education at d/c on iron supplements/JACOB. - see above, occult GI bleed - trend CBC - 11/05: See plan for #1. Await results of Colonoscopy. Will need Iron supplementation upon discharge. Continue to trend CBC, monitor vitals and transfuse as needed. - 11/06: Hgb today has risen to 9.6. No further s/s of bleeding and this is a significant full point increase as compared to yesterday at 8.6. Pt's colonoscopy was completed by Dr. Viramontes and it was found that pt had no active bleeding. Internal Hemorrhoids, and Diverticulosis without perforation or abscess were found, but they also were not a source for bleeding. It was recommended by GI to have Hematology consult. I consulted Dr. Shaw who saw the pt at the bedside and ordered Iron infusion and will follow up with him in the office. He believes his anemia is due to longstanding JACOB in which the pt stopped taking his Iron supplementation for over a year ago because it was making his stools black. Therefore pt does not have a true GI Bleed and it is ruled out by direct visualization with Colonoscopy. I agree with Dr. Shaw, however, that the pt should have outpt EGD as well in the near future. (3) DM2 (diabetes mellitus, type 2): Code(s): E11.9 - Type 2 diabetes mellitus without complications Status: Chronic Assessment and Plan: - initial glucose 204 - hypoglycemia protocol - POC blood glucose ACHS - home medication held - metformin - correct regimen ordered - low/high dose TIDWM and HS - A1C not on file, ordered - 11/05: A1C is 5.5. Continue current SSI, resume home regimen upon discharge. - 11/06: Pt's fasting glucose this AM is 110. A1C is 5.5. Pt has achieved good control with his medical regimen and will be encouraged to continue at home. (4) HTN (hypertension) with goal to be determined: Code(s): I10 - Essential (primary) hypertension Status: Chronic Assessment and Plan: Continue home Lisinop
== END 2023-11-06 10:50 | disposition home or self-care (01) ==
LOC: ANHED 10:59 → ANH2MED 14:51
PROVIDERS: Internal Medicine Gastroenterology; Student in an Organized Health Care Education/Training Program; Admitting Provider Hospitalist; Emergency Provider Emergency Medicine; PCP Internal Medicine; Visit Provider Nurse Practitioner Adult Health
PROC: 0DJD8ZZ Inspection of Lower Intestinal Tract, Via Natural or Artificial Opening Endoscopic (ICD-10-PCS; CPT 45378; principal; 2023-11-05 15:00)
DX: D50.9 Iron deficiency anemia, unspecified (principal); K64.8 Other hemorrhoids; K57.30 Diverticulosis of large intestine without perforation or abscess without bleeding; R19.5 Other fecal abnormalities; E11.9 Type 2 diabetes mellitus without complications; R53.1 Weakness; R00.2 Palpitations; I10 Essential (primary) hypertension; E78.5 Hyperlipidemia, unspecified; G47.00 Insomnia, unspecified; M10.9 Gout, unspecified; Z87.891 Personal history of nicotine dependence; Z79.1 Long term (current) use of non-steroidal anti-inflammatories (NSAID); Z79.84 Long term (current) use of oral hypoglycemic drugs; Z79.891 Long term (current) use of opiate analgesic; Z79.899 Other long term (current) drug therapy; Z84.89 Family history of other specified conditions
CPT/HCPCS: 45378; 36415; 36430; 80048; 80053; 82607; 82728; 82746; 82948; 83036; 83540; 83550; 83615; 83735; 84443; 85014; 85018; 85025; 85610; 85730; 86850; 86900; 86901; 86923; 96361; 96374; 99285; A9270; C9113; G0378; J1756; J2001; J2704; J7050; J7120; P9016

== ENCOUNTER 2023-12-28 07:00 | Outpatient (NON) | payer MEDICARE, SELFPAY | END 2023-12-28 07:01 | disposition home or self-care (01) | PROVIDERS: PCP Internal Medicine; Visit Provider Internal Medicine Gastroenterology | DX: R19.5 Other fecal abnormalities (principal); K21.00 Gastro-esophageal reflux disease with esophagitis, without bleeding | CPT/HCPCS: 88305 ==

== ENCOUNTER 2023-12-28 08:44 | Day surgery (SDC) | payer MEDICARE, SELFPAY ==
[2023-12-13 11:56] VITALS: BMI 26.0
[2023-12-14 10:45] VITALS: BMI 26.4
--- NOTE | 2023-12-21 13:25 | PM.HPGS ---
History of Present Illness History of Present Illness Consent: Risks, benefits, and alternatives have been discussed and questions answered. Patient agrees to proceed with procedure. Chief complaint: Anemia, unspecified Narrative: Priscilla Dennis is a 78 year old male This severe anemia. He was recently hospitalized with a hemoglobin of 4.9 colonoscopy done during that admission was unremarkable except for diverticulosis with no bleeding site found. Review of Systems Review of Systems: All systems reviewed & are unremarkable except as noted in HPI and below PMFSH Past Medical History Medical History Arthritis Compression fracture T12 DM2 (diabetes mellitus, type 2) Gout HTN (hypertension) with goal to be determined Hyperlipidemia Iron deficiency anemia Skin cancer Surgical History Surgical History History of cataract extraction with lens replacement History of cholecystectomy History of left shoulder replacement Family History Family History Father Acute myocardial infarction Gout Mother Cerebral brain hemorrhage Social History Social History Social History: The patient is and lives with his . She is a durable power patent prosecution attorney for healthcare. The patient desires to be a full code. The patient has 4 children. He worked for still male. He works in the [employer] department. Lifelong nonsmoker. He used to drink but not anymore no marijuana are illegal substances. Smoking status: Never smoker Alcohol intake: never Substance use: never Substance use type: does not use Do You Feel Safe in your Home?: Yes Lack of Transportation: No Lack of Food: Never True Current Housing: I Have Housing Concerned About Future Housing: No Difficulty Paying Gas/Electric Bills: No Difficulty Paying for Meds: No Currently Unemployed: No Education: Trade/Vocational Certificate Difficulty w/ Childcare or Family Care: No Living arrangements: with family Occupation/Education: retired Gender identity (if verbalized by the patient): Male Spiritual care concerns: No Meds Home Medications and Allergies Home Medications Medication Instructions Recorded Confirmed Type atorvastatin 20 mg tablet 20 mg PO 3XW 02/07/20 12/28/23 History lisinopril 20 mg tablet 20 mg PO DAILY 02/07/20 12/28/23 History hlniydct-ir-nxnhm 300 mcg-K 60 1 tablet PO DAILY 02/07/20 12/28/23 History mcg-lycop 600 mcg-lutein 300 mcg tablet (Centrum Silver Men) acetaminophen 500 mg tablet 1,000 mg PO Q6H PRN Pain (Scale 11/04/23 12/28/23 History Score 1-3) metformin 500 mg tablet 50 mg PO DAILY 11/04/23 12/28/23 History ascorbic acid (vitamin C) 500 mg 500 mg PO Q12H #60 caps 11/06/23 12/28/23 Rx capsule,extended release (Vitamin C) ferrous sulfate 325 mg (65 mg 325 mg PO BID #60 tabs 11/06/23 12/28/23 Rx iron) tablet (Iron (ferrous sulfate)) Allergies Allergy/AdvReac Type Severity Reaction Status Date / Time No Known Allergies Allergy Unknown Verified 12/28/23 09:40 Exam Const: General: alert Orientation/consciousness: patient oriented x3 Resp: Auscultation: clear to auscultation bilaterally Cardio: Rhythm: regular rhythm GI: GI Palp: Yes Soft to palpation and No Tenderness to palpation present (GI) Neuro: General: patient oriented x3 Assessment and Plan Assessment and plan (1) Iron deficiency anemia: Code(s): D50.9 - Iron deficiency anemia, unspecified Status: Chronic Assessment and Plan: EGD with possible biopsy or dilatation or cautery.
[2023-12-28 09:41] VITALS: BP 142/72; PULSE 88; RESP 20; TEMP 36.8; O2SAT 97
[2023-12-28 09:57] LABS: Glucose Point of Care 119 mg/dl (65-105)
--- NOTE | 2023-12-28 10:07 | WPDANESEPPF ---
Anes - Initial Pre Proc Eval Procedure: Operation Date: 12/28/23 11:00 Proposed Procedures p Esophagogastroduodenoscopy - Brian Viramontes MD Date/Time: 12/28/23 10:07 Surgeon: Brian Viramontes MD Pre Op Diagnosis: Anemia, unspecified Patient Data Age: 78 Gender: M Height: 1.73 m Weight: 78.55 kg Last Vital Signs Temp 36.8 C 12/28/23 09:41 Pulse 88 12/28/23 09:41 Resp 20 12/28/23 09:41 BP 142/72 H 12/28/23 09:41 Pulse Ox 97 12/28/23 09:41 O2 Del Method Room Air 12/28/23 09:41 Allergies Allergy/AdvReac Type Severity Reaction Status Date / Time No Known Allergies Allergy Unknown Verified 12/28/23 09:40 Home Medications Medication Instructions Recorded Confirmed Type atorvastatin 20 mg tablet 20 mg PO 3XW 02/07/20 12/28/23 History lisinopril 20 mg tablet 20 mg PO DAILY 02/07/20 12/28/23 History chjydarj-jk-xavsh 300 mcg-K 60 1 tablet PO DAILY 02/07/20 12/28/23 History mcg-lycop 600 mcg-lutein 300 mcg tablet (Centrum Silver Men) acetaminophen 500 mg tablet 1,000 mg PO Q6H PRN Pain (Scale 11/04/23 12/28/23 History Score 1-3) metformin 500 mg tablet 50 mg PO DAILY 11/04/23 12/28/23 History ascorbic acid (vitamin C) 500 mg 500 mg PO Q12H #60 caps 11/06/23 12/28/23 Rx capsule,extended release (Vitamin C) ferrous sulfate 325 mg (65 mg 325 mg PO BID #60 tabs 11/06/23 12/28/23 Rx iron) tablet (Iron (ferrous sulfate)) Laboratory Tests 12/28/23 09:50 POC Capillary Glucose 119 H mg/dl (65-105) Patient hx anesthesia problems: none Family hx anesthesia problems: none Results Review: All pre-operative results and documents have been reviewed as part of the pre-operative evaluation. [facility] Past Medical History Medical History Arthritis Compression fracture T12 DM2 (diabetes mellitus, type 2) Gout HTN (hypertension) with goal to be determined Hyperlipidemia Iron deficiency anemia Skin cancer Surgical History Surgical History History of cataract extraction with lens replacement History of cholecystectomy History of left shoulder replacement Family History Family History Father Acute myocardial infarction Gout Mother Cerebral brain hemorrhage Social History Social History Social History: The patient is and lives with his . She is a durable power corporate attorney for healthcare. The patient desires to be a full code. The patient has 4 children. He worked for still male. He works in the [employer] department. Lifelong nonsmoker. He used to drink but not anymore no marijuana are illegal substances. Smoking status: Never smoker Alcohol intake: never Substance use: never Substance use type: does not use Do You Feel Safe in your Home?: Yes Lack of Transportation: No Lack of Food: Never True Current Housing: I Have Housing Concerned About Future Housing: No Difficulty Paying Gas/Electric Bills: No Difficulty Paying for Meds: No Currently Unemployed: No Education: Trade/Vocational Certificate Difficulty w/ Childcare or Family Care: No Living arrangements: with family Occupation/Education: retired Gender identity (if verbalized by the patient): Male Spiritual care concerns: No Anes - Eval Final PreProcedure Day of Procedure 12/28/23 10:07 Patient weight: normal Heart: regular rate and rhythm Lungs: clear to auscultation Airway: Mallampati scale class II Neurological: alert and oriented Last oral intake: >/= 8 hours ASA classification: III Emergent: no Anesthetic plan: proceed Anesthesia type and monitoring: general GIVS and standard monitoring Results Review: All pre-operative results and documents have been reviewed as part of the pre-operative e
[2023-12-28] MEDS: LACTATED RINGERS 1,000 ML 150 ML IV CONT (10:14)
[2023-12-28 10:31] VITALS: BP 70/45; PULSE 59; RESP 12; O2SAT 95
[2023-12-28 10:41] VITALS: BP 86/52; PULSE 68; RESP 14; O2SAT 97
--- NOTE | 2023-12-28 10:49 | WPDANESPN ---
Anes - Prog Note Post-Op Date/Time: 12/28/23 10:49 Cardiovascular status: normal Respiratory status: normal Airway patency: baseline Mental status: baseline Post-Op hydration status: normal Vital Signs: Last Vital Signs Temp 36.8 C 12/28/23 09:41 Pulse 68 12/28/23 10:41 Resp 14 12/28/23 10:41 BP 86/52 L 12/28/23 10:41 Pulse Ox 97 12/28/23 10:41 O2 Del Method Room Air 12/28/23 10:41 Pain Score (VAS): 0 I/O: Intake & Output 12/27/23 12/28/23 12/28/23 23:59 07:59 15:59 Intake Total 600 Balance 600 12/28/23 09:50 POC Capillary Glucose 119 H Patient Feedback: Patient satisfied with anesthetic care.
[2023-12-28 10:51] VITALS: BP 109/63; PULSE 61; RESP 20; O2SAT 100
== END 2023-12-28 11:01 | disposition home or self-care (01) ==
PROVIDERS: PCP Internal Medicine; Visit Provider Internal Medicine Gastroenterology
PROC: 0DJ08ZZ Inspection of Upper Intestinal Tract, Via Natural or Artificial Opening Endoscopic (ICD-10-PCS; CPT 43235; principal; 2023-12-28 11:00)
DX: D64.9 Anemia, unspecified (principal); K44.9 Diaphragmatic hernia without obstruction or gangrene; K22.2 Esophageal obstruction; K29.70 Gastritis, unspecified, without bleeding
CPT/HCPCS: 43249; 43239

== ENCOUNTER 2024-01-24 14:56 | Outpatient (CLI) | payer MEDICARE, SELFPAY ==
[2024-01-24 15:14] LABS: Basophils Absolute Auto 0.1 K/mm3 (0.0-0.1); Basophils Percent Auto 0.9 % (0.2-1.2); Eosinophils Absolute Auto 0.3 K/mm3 (0-0.3); Eosinophils Percent Auto 3.4 % (0-4.4); Hematocrit 44.3 % (42.0-52.0); Immature Granulocyte Absolute 0.02 K/mm3 (0.00-0.031); Immature Granulocyte Percent A 0.3 % (0-0.5); Lymphocytes Absolute Auto 1.88 K/mm3 (0.9-3.2); Lymphocytes Percent Auto 23.6 % (18.3-44.2); Mean Corpuscular HGB Conc 31.6 g/dl (32-36); Mean Corpuscular Hemoglobin 29.6 pg (26-34); Mean Corpuscular Volume 93.7 fl (80-100); Mean Platelet Volume 9.3 fl (7.4-10.4); Monocytes Absolute Auto 0.9 K/mm3 (0.1-0.6); Monocytes Percent Auto 11.6 % (2.6-8.5); Neutrophils Absolute Auto 4.8 K/mm3 (1.3-6.7); Neutrophils Percent Auto 60.2 % (45.5-73.1); Platelet Count Result 252 k/mm3 (150-375); Red Blood Count 4.73 M/mm3 (4.6-6.20); Red Cell Distribution Width 16.8 % (11.5-14.5)
[2024-01-24 16:57] LABS: Alanine Aminotransferase 18 U/L (6-50); Albumin Level 4.5 g/dL (3.5-5.1); Alkaline Phosphatase 80 U/L (38-126); Anion Gap 8 mmol/L (4-12); Aspartate Amino Transferase 25 U/L (17-59); Bilirubin,Total 0.6 mg/dL (0.2-1.3); Blood Urea Nitrogen 22 mg/dL (9-20); Calcium 10.2 mg/dL (8.4-10.2); Carbon Dioxide 27 mmol/L (22-30); Chloride 107 mmol/L (98-107); Estimated Glomerular Filt Rate 53; Glucose 109 mg/dL (65-110); Lactate Dehydrogenase 144 U/L (120-246); Potassium 4.7 mmol/L (3.4-5.0); Sodium 142 mmol/L (137-145)
[2024-01-24 17:00] LABS: Iron 78 ug/dL (49-181)
[2024-01-24 17:12] LABS: Percent Iron Saturation 23 % (20-50)
[2024-01-24 22:11] LABS: Folic Acid > 20.0 ng/mL (2.76->20)
[2024-01-28 15:03] LABS: Methylmalonic Acid 180 nmol/L (87-318)
[2024-02-02 13:08] LABS: Soluble Transferrin Receptor 1.17 mg/L (0.76-1.76)
== END 2024-01-24 14:57 | disposition home or self-care (01) ==
PROVIDERS: Nurse Practitioner Family; PCP Internal Medicine; Visit Provider Internal Medicine Hematology & Oncology
DX: D50.9 Iron deficiency anemia, unspecified (principal)
CPT/HCPCS: 36415; 80053; 82607; 82728; 82746; 83540; 83550; 83615; 83921; 84238; 85025

== ENCOUNTER 2024-04-25 14:26 | Outpatient (CLI) | payer MEDICARE, SELFPAY ==
[2024-04-25 14:44] LABS: Basophils Absolute Auto 0.1 K/mm3 (0.0-0.1); Basophils Percent Auto 0.6 % (0.2-1.2); Eosinophils Absolute Auto 0.4 K/mm3 (0-0.3); Eosinophils Percent Auto 3.6 % (0-4.4); Hematocrit 44.4 % (42.0-52.0); Hemoglobin 14.3 g/dL (14.0-18.0); Immature Granulocyte Absolute 0.05 K/mm3 (0.00-0.031); Immature Granulocyte Percent A 0.5 % (0-0.5); Lymphocytes Absolute Auto 2.37 K/mm3 (0.9-3.2); Lymphocytes Percent Auto 24.1 % (18.3-44.2); Mean Corpuscular HGB Conc 32.2 g/dl (32-36); Mean Corpuscular Hemoglobin 30.6 pg (26-34); Mean Corpuscular Volume 95.1 fl (80-100); Monocytes Percent Auto 10.3 % (2.6-8.5); Neutrophils Percent Auto 60.9 % (45.5-73.1); Platelet Count Result 265 k/mm3 (150-375); Red Blood Count 4.67 M/mm3 (4.6-6.20); Red Cell Distribution Width 13.9 % (11.5-14.5); White Blood Count 9.8 K/mm3 (4.5-10.0)
[2024-04-25 16:38] LABS: Iron 102 ug/dL (49-181)
[2024-04-25 16:43] LABS: Alanine Aminotransferase 24 U/L (6-50); Albumin Level 4.3 g/dL (3.5-5.1); Alkaline Phosphatase 99 U/L (38-126); Anion Gap 12 mmol/L (4-12); Aspartate Amino Transferase 32 U/L (17-59); Bilirubin,Total 1.1 mg/dL (0.2-1.3); Blood Urea Nitrogen 25 mg/dL (9-20); Calcium 9.7 mg/dL (8.4-10.2); Carbon Dioxide 25 mmol/L (22-30); Chloride 103 mmol/L (98-107); Estimated Glomerular Filt Rate 53; Glucose 110 mg/dL (65-110); Potassium 4.4 mmol/L (3.4-5.0); Sodium 140 mmol/L (137-145)
[2024-04-25 16:49] LABS: Percent Iron Saturation 33 % (20-50)
[2024-04-25 17:49] LABS: Folic Acid > 20.0 ng/mL (2.76->20)
== END 2024-04-25 14:27 | disposition home or self-care (01) ==
LOC: ANHLAB 14:28
PROVIDERS: PCP Internal Medicine; Visit Provider Internal Medicine Hematology & Oncology
DX: D50.9 Iron deficiency anemia, unspecified (principal)
CPT/HCPCS: 36415; 80053; 82607; 82728; 82746; 83540; 83550; 85025

== ENCOUNTER 2024-09-25 10:30 | Outpatient (CLI) | payer MEDICARE, SELFPAY ==
[2024-09-25 10:54] LABS: Basophils Absolute Auto 0.1 K/mm3 (0.0-0.1); Basophils Percent Auto 0.9 % (0.2-1.2); Eosinophils Absolute Auto 0.2 K/mm3 (0-0.3); Eosinophils Percent Auto 2.6 % (0-4.4); Hematocrit 43.1 % (42.0-52.0); Hemoglobin 13.9 g/dL (14.0-18.0); Immature Granulocyte Absolute 0.01 K/mm3 (0.00-0.031); Immature Granulocyte Percent A 0.1 % (0-0.5); Lymphocytes Absolute Auto 2.25 K/mm3 (0.9-3.2); Lymphocytes Percent Auto 29.6 % (18.3-44.2); Mean Corpuscular HGB Conc 32.3 g/dl (32-36); Mean Corpuscular Hemoglobin 31.2 pg (26-34); Mean Corpuscular Volume 96.6 fl (80-100); Mean Platelet Volume 9.9 fl (7.4-10.4); Monocytes Absolute Auto 0.5 K/mm3 (0.1-0.6); Neutrophils Absolute Auto 4.5 K/mm3 (1.3-6.7); Neutrophils Percent Auto 59.8 % (45.5-73.1); Platelet Count Result 249 k/mm3 (150-375); Red Blood Count 4.46 M/mm3 (4.6-6.20); White Blood Count 7.6 K/mm3 (4.5-10.0)
[2024-09-25 16:56] LABS: Iron 123 ug/dL (49-181)
[2024-09-25 17:01] LABS: Anion Gap 9 mmol/L (4-12); Blood Urea Nitrogen 30 mg/dL (9-20); Calcium 9.7 mg/dL (8.4-10.2); Carbon Dioxide 26 mmol/L (22-30); Chloride 104 mmol/L (98-107); Estimated Glomerular Filt Rate 50; Glucose 180 mg/dL (65-110); Potassium 4.6 mmol/L (3.4-5.0); Sodium 139 mmol/L (137-145)
[2024-09-25 17:06] LABS: Percent Iron Saturation 36 % (20-50)
[2024-09-25 18:14] LABS: Folic Acid > 20.0 ng/mL (2.76->20)
== END 2024-09-25 10:31 | disposition home or self-care (01) ==
LOC: ANHLAB 10:32
PROVIDERS: PCP Internal Medicine; Visit Provider Internal Medicine Hematology & Oncology
DX: D50.9 Iron deficiency anemia, unspecified (principal)
CPT/HCPCS: 36415; 80048; 82607; 82728; 82746; 83540; 83550; 85025

== ENCOUNTER 2025-01-16 09:35 | Outpatient (CLI) | payer MEDICARE, SELFPAY ==
[2025-01-16 09:54] LABS: Hematocrit 41.7 % (42.0-52.0); Hemoglobin 13.2 g/dL (14.0-18.0); Mean Corpuscular HGB Conc 31.7 g/dl (32-36); Mean Corpuscular Hemoglobin 30.4 pg (26-34); Mean Corpuscular Volume 96.1 fl (80-100); Mean Platelet Volume 9.9 fl (7.4-10.4); Platelet Count Result 253 k/mm3 (150-375); Red Blood Count 4.34 M/mm3 (4.6-6.20); Red Cell Distribution Width 13.4 % (11.5-14.5); White Blood Count 11.7 K/mm3 (4.5-10.0)
--- OUTSIDE RECORDS SUMMARY | 2025-01-16 10:12 | XMS_ITS | Clinical Summary ---
Author Organization [facility] [place] [facility] [place] Address [address] [place] [address] Care Team Providers Care Executive Meeting Manager Name Role Phone Chad Ferraro MD Primary Care Provider [phone] Allergies No known active allergies Medications tamsulosin (FLOMAX) 0.4 mg capsule Take 0.4 mg by mouth daily. Active metFORMIN (GLUCOPHAGE) 500 mg tablet Take 500 mg by mouth daily. Active lisinopriL (PRINIVIL) 20 mg tablet Take 20 mg by mouth daily. Active atorvastatin (LIPITOR) 20 mg tablet Take 20 mg by mouth every third day. Active prednisoLONE acetate (PRED FORTE) 1 % suspension 1 Drop daily. Active ferrous sulfate 325 mg (65 mg iron) tablet Take 325 mg by mouth daily. Active ascorbic acid (VITAMIN C) 500 mg Tablet, Chewable Take 500 mg by mouth daily. Active multivitamin (DAILY-MARLINE) tablet Take 1 Tablet by mouth daily. Active pantoprazole (PROTONIX) 40 mg Tablet, Delayed Release (E.C.) Take 40 mg by mouth daily in the morning. 03/27/2024 Active ferrous fumarate 89 mg (29 mg iron) Tablet Take 89 mg by mouth daily. Active Active Problems No known active problems Encounters Date Type Department Care Team Description 11/29/2024 External Device Data [facility] Provider, Abstract 11/18/2024 External Device Data [facility] Provider, Abstract 11/18/2024 External Device Data [facility] Provider, Abstract 11/01/2024 External Device Data [facility] Provider, Abstract from Last 3 Months Family History Medical History Relation Name Comments No Known Problems Child 1 No Known Problems Child 2 No Known Problems Child 3 No Known Problems Child 4 Heart Disease Father No Known Problems Mother Relation Name Status Comments Child 1 Alive Child 2 Alive Child 3 Alive Child 4 Alive Father Mother Social History Tobacco Use Types Packs/Day Years Used Date Smoking Tobacco: Never Smokeless Tobacco: Never Tobacco Cessation:Counseling Given: Not Answered Alcohol Use Standard Drinks/Week Comments Never 0 (1 standard drink = 0.6 oz pur e alcohol) Sex and Gender Information Value Date Recorded Sex Assigned at Not on file Legal Sex Male 1:15 PM CDT Gender Identity Not on file Sexual Orientation Not on file Last Filed Vital Signs Vital Sign Reading Time Taken Comments Blood Pressure 148/86 09/26/2024 1:58 PM CHIP PERSON Pulse 89 09/26/2024 1:58 PM CHIP PERSON Temperature 36.4 C (97.5 F) 09/26/2024 1:58 PM CHIP PERSON Respiratory Rate 16 09/26/2024 1:58 PM CHIP PERSON Oxygen Saturation 96% 09/26/2024 1:58 PM CHIP PERSON Inhaled Oxygen Concentration - - Weight 79.4 kg (175 lb) 09/26/2024 1:58 PM CHIP PERSON Height 172.7 cm (5' 8 ) 01/24/2024 2:27 PM CDT Body Mass Index 26.61 01/24/2024 2:27 PM CDT Plan of Treatment Upcoming Encounters Date Type Department Care Team (Late st Contact Info) Description 01/26/2025 11:45 AM CDT Office Visit [facility] [place] [facility] - [place] [address] [facility] [address] [place] [address] Bryce Shaw MD [address] [place] [address] Health Maintenance Due Date Last Done Comments DTAP/TDAP/TD VACCINES (1 - Tdap) 1964 Traditional Medicare (ACO) Annual Wellness Visit 03/03 PNEUMOCOCCAL VACCINE 50+ YEARS (1 of 1 - PCV) 03/03/19 95 ZOSTER VACCINE (1 of 2) 1995 RSV VACCINE (60+ or ) (1 - 1-dose 75+ series) 2020 INFLUENZA VACCINE (#1) 2024 Insurance MEDICARE PART A AND B [employer] Member Subscriber Plan / Payer ( fective 2023-Present) Name:Priscilla Dennis Relation to Subscriber:Self Name:Priscilla Dennis Payer ID:Not on file Group ID:Not on file Type:[employer] Address: [facility] [address] [place] [id number] Care Teams Executive Meeting Manager Relationship Specialty Start Date End Date Chad Ferraro MD [address] [place] [address] PCP - General Internal Medicine 11/23/23
--- OUTSIDE RECORDS SUMMARY | 2025-01-16 10:12 | XMS_ITS | Data Portability ---
Author Organization [place] - [facility], Main Office Address [address] [place] [address] Care Team Providers Care [employer] Support Specialist Name Role Phone MARLYN FERRARO Primary Care Provider [phone] MARLYN FERRARO Referring Provider [phone] Assessment Encounter Date Assessment Date Assessment LastModified by Organization Details LastModified Time 12/21/2022 12/21/2022 Hypertension hyperlipidemia diabetes discussed will see if he is due for colonoscopy blood work been ordered continue current therapy follow-up in 6 months. Not available 12/21/2022 14:47:21 06/21/2023 06/21/2023 Will continue current therapy diagnosis in assessment and plan have been discussed follow-up in 6 months [email or web address] Not available 06/21/2023 22:41:40 Plan of Treatment Reminders Order Date Submit Date Provider Last Modified By Organization Details Last Modified Time Details Appointments None recorded . Lab glycohem oglobin, total, blood 06/21/20 [facility] (Lab), [address] [place], [address], 21:08:58 CBC w/ auto diff 06/21/20 [facility] (Lab), [address] [place], [address], 15:37:29 lipid panel, serum 06/21/20 [facility] (Lab), [address] [place], [address], 3 15:42:45 CMP, serum or plasma 023 06/21/20 23 [facility] (Lab), [address] [place], [address], 3 15:42:51 PSA, total, serum or plasma 023 12/22/19 23 [facility] (Lab), [address] [place], [address], 3 16:20:55 glycohem oglobin, total, blood 023 12/22/19 23 [facility] (Lab), [address] [place], [address], 3 20:11:21 CBC w/ auto diff 023 12/22/[address] (Lab), [address] [place], [address], 3 16:05:50 CMP, serum or plasma 023 12/22/[address] (Lab), [address] [place], [address], 3 16:05:50 lipid panel, serum 023 12/22/[address] (Lab), [address] [place], [address], 3 16:05:50 Referral None recorded . Procedures None recorded . Surgeries None recorded . Imaging None recorded . Medication Orders None recorded . Patient TargetsNo targets recorded. Patient InstructionsNo instructions recorded. Reason for Referral None Reported. Results Created Date Observation Date Name Description Value Unit Range Abnormal Flag Note LastModifiedBy Organization Detail LastModifiedTime 06/30/20 21 06/30/2021 MICRO ALBUM N RNDM W/CRE AT RATIO ur creat 108.45 mg/dL REFER ENCE RANGE NOT ESTAB LISHE D FOR RANDO M URINE CREAT ININE Not Available [facility] (Lab) [address] [place], [address], 06/30/2021 18:30:04 06/30/20 21 06/30/2021 MICRO ALBUM N RNDM W/CRE AT RATIO microalb 36.4 mg/L 0.0-16 .6 high Not Available [facility] (Lab) [address] [place], [address], 06/30/2021 18:30:04 06/30/20 21 06/30/2021 MICRO ALBUM N RNDM W/CRE AT RATIO ratio 34 mcg/m g 0-29 high THE AMERI CAN DIABE DIANA ASSOC IATIO N DEFIN ES ABNOR MALIT IES IN ALBUM IN EXCRE TION FOLLO WS: CATEG ORY RESUL T (MCG/ MG CREAT ININE ) WU L <30 MICRO ALBUM INURI A 30-29 9 CLINI ZOE ALBUM INURI A > OR = 300 THE ADA RECOM MENDS THAT 2 OF 2 SPECI MENS COLLE CTED WITHI N A 3- TO 6-MON TH PERIO D BE ABNOR MAL BEFOR E CONSI KRSITA G A PATIE NT TO HAVE CROSS ED ONE OF THESE DIAGN OSTIC THRES HOLDS . REFER ENCE: DIABE DIANA CARE, VOL. 26: S94-S , 2002 Not Available [facility] (Lab) [address] [place], [address], 06/30/2021 18:30:04 06/30/20 21 06/30/2021 HEMOG LOBIN A1C HA1C 6.1 % 4.0-6. 0 high Diabe diana Scree torri Crite pattie: <5.7% Consi stent with absen ce of diabe diana 5.7-6 .4% Consi stent with incre ased risk for diabe diana (pred iabet es) >OR=6 .5% Consi stent with diabe diana REFER ENCE: Diabe diana Care 2016, 39(Norman ppl.1 ):s13 -s22 Not Available [facility] (Lab) [address] [place], [address], 06/30/2021 22:00:43 06/30/20 21 06/30/2021 LIPID PANEL cholesterol 141 mg/dL 140-19 9 NIH KRISTINE NSUS RECOM MENDA TION FOR IVAN STERO L: ADULT CHILD LOW RISK: <200 <170 BORDE RLINE : <200- 239 ----- HIGH RISK: >240 >200 Not Available [facility] (Lab) [address] [place], [address], 06/30/2021 18:30:21 06/30/20 21 06/30/2021 LIPID PANEL triglyceride s 189 mg/dL 0-150 high NIH KRISTINE NSUS REPOR T RECOM MENDA TION FOR TRIGL YCERI FLACO: ADULT CHILD LOW RISK: <150 ----- BODER LINE: 150-1 99 ----- HIGH RISK: >200 ----- Not Available [facility] (Lab) [address] [place], [address], 06/30/2021 18:30:21 06/30/20 21 06/30/2021 LIPID PANEL HDL cholesterol 42 mg/dL 40- Not Available [facility] (Lab) [address] [place], [address], 06/30/2021 18:30:21 06/30/2006/30/2021 LIPID PANEL LDL cholesterol, calculated 61 mg/dL 0-130 NIH KRISTINE NSUS REPOR T RECOM MENDA TIONS FOR LDL: ADULT CHILD LOW RISK <130 <110 (OPTI MAL LDL) <100 ----- BORDE RLINE : 130-1 59 ----- HIGH RISK: >160 >130 A TRIGL YCERI DE RESUL T >400 INVAL IDATE S THE CALCU LATIO N FOR LDL FRACT IONAT ION - THE LDL RESUL T WILL NOT BE REPOR LILIBETH. Not Available [facility] (Lab) [address] [place], [address], 06/30/2021 18:30:21 06/30/20 21 06/30/2021 COMPR EHENS AVLERIE METAB OLIC PANEL sodium 142 mmol/ L 137-14 5 Not Available [facility] (Lab) [address] [place], [address], 06/30/2021 18:30:19 06/30/20 21 06/30/2021 COMPR EHENS VALERIE METAB OLIC PANEL potassium 4.2 mmol/ L 3.5-5. 1 Not Available [facility] (Lab) [address] [place], [address], 06/30/2021 18:30:19 06/30/20 21 06/30/2021 COMPR EHENS VALERIE METAB OLIC PANEL chloride 104 mmol/ L 98-107 Not Available [facility] (Lab) [address] [place], [address], 06/30/2021 18:30:19 06/30/20 21 06/30/2021 COMPR EHENS VALERIE METAB OLIC PANEL carbon dioxide 26 mmol/ L 22-30 Not Available [facility] (Lab) [address] [place], [address], 06/30/2021 18:30:19 06/30/20 21 06/30/2021 COMPR EHENS VALERIE METAB OLIC PANEL agap 16.2 mmol/ L 14-22 Not Available [facility] (Lab) [address] [place], [address], 06/30/2021 18:30:19 06/30/20 21 06/30/2021 COMPR EHENS VALERIE METAB OLIC PANEL glucose 111 mg/dL 70-99 high Not Available [facility] (Lab) [address] [place], [address], 06/30/2021 18:30:19 06/30/20 21 06/30/2021 COMPR EHENS VALERIE METAB OLIC PANEL BUN 25 mg/dL 8-19 high Not Available [facility] (Lab) [address] [place], [address], 06/30/2021 18:30:19 06/30/20 21 06/30/2021 COMPR EHENS VALERIE METAB OLIC PANEL creatinine 1.25 mg/dL 0.66-1 .25 Not Available [facility] (Lab) [address] [place], [address], 06/30/2021 18:30:19 06/30/20 21 06/30/2021 COMPR EHENS VALERIE METAB OLIC PANEL GFR 56 Refer ence Range : [place] ge GFR Healt hy Adult : >60 mL/mi n/1.7 3 m2 Chron ic Kidne y Disea se: 15-60 mL/mi n/1.7 3 m2 Kidne y Failu re: <15/m L/min /1.73 m2 www.n iddk. nih.g ov MDRD study equat ion hasn' t been valid ated in child cherelle <18 yrs of age, pregn ant women , the elder ly >85 yrs of age, or in some racia l or ethni c subgr oups, suc as Hispa nics. Outsi de the valid ated arthur eters , estim ated GFR is less accur ate requi ring clini zoe judgm ent on a case by case basis . Clini zoe inter preta tion for other races and ages must be made by the clini marianna . Futhe rmore , any of th e limit ation s with the use of serum creat inine relat ed to nutri patrick l statu s o r medic ation usage hasn' t accou nted for the MDRD Study equat ion. For perso ns < 18 yrs of age, a pedia tric GFR calcu lator can be locat ed on the [facility] websi te: https ://tom blackwell.o rg/pr ofess ional s/kdo qi/gf r_cal culat or Not Available [facility] (Lab) [address] [place], [address], 06/30/2021 18:30:19 06/30/20 21 06/30/2021 COMPR EHENS VALERIE METAB OLIC PANEL alkaline phosphatase 83 U/L 38-126 Not Available [facility] (Lab) [address] [place], [address], 06/30/2021 18:30:19 06/30/20 21 06/30/2021 COMPR EHENS VALERIE METAB OLIC PANEL alanine aminotransfe rase 20 U/L 0-50 Not Available [facility] (Lab) [address] [place], [address], 06/30/2021 18:30:19 06/30/20 21 06/30/2021 COMPR EHENS VALERIE METAB OLIC PANEL aspartate aminotransfe rase 33 U/L 15-46 Not Available [facility] (Lab) [address] [place], [address], 06/30/2021 18:30:19 06/30/20 21 06/30/2021 COMPR EHENS VALERIE METAB OLIC PANEL bilirubin, total 1.00 mg/dL 0.20-1 .30 Not Available [facility] (Lab) [address] [place], [address], 06/30/2021 18:30:19 06/30/20 21 06/30/2021 COMPR EHENS VALERIE METAB OLIC PANEL calcium 10.3 mg/dL 8.4-10 .2 high Not Available [facility] (Lab) [address] [place], [address], 06/30/2021 18:30:19 06/30/20 21 06/30/2021 COMPR EHENS VALERIE METAB OLIC PANEL total protein 7.9 g/dL 6.3-8. 2 Not Available [facility] (Lab) [address] [place], [address], 06/30/2021 18:30:19 06/30/20 21 06/30/2021 COMPR EHENS VALERIE METAB OLIC PANEL albumin 4.6 g/dL 3.0-4. 4 high Not Available [facility] (Lab) [address] [place], [address], 06/30/2021 18:30:19 06/30/20 21 06/30/2021 COMPR EHENS VALERIE METAB OLIC PANEL globulin 3.3 g/dL 2.6-4. 2 Not Available [facility] (Lab) [address] [place], [address], 06/30/2021 18:30:19 06/30/20 21 06/30/2021 COMPR EHENS VALERIE METAB OLIC PANEL A/G ratio 1.4 ratio 1.0-2. 0 Not Available [facility] (Lab) [address] [place], [address], 06/30/2021 18:30:19 12/30/19 22 12/30/2021 HEMOG LOBIN A1C HA1C 5.9 % 4.0-6. 0 Diabe diana Scree torri Crite pattie: <5.7% Consi stent with absen ce of diabe diana 5.7-6 .4% Consi stent with incre ased risk for diabe diana (pred iabet es) >OR=6 .5% Consi stent with diabe diana REFER ENCE: Diabe diana Care 2016, 39(Norman ppl.1 ):s13 -s22 Not Available [facility] (Lab) [address] [place], [address], 12/30/2021 12:32:36 12/30/19 22 12/29/2021 PSA SCREE N PSA medicare screen 7.07 NG/mL 0.00-4 .00 high Not Available [facility] (Lab) [address] [place], [address], 12/29/2021 17:31:13 12/30/19 22 12/29/2021 COMPR EHENS VALERIE METAB OLIC PANEL sodium 140 mmol/ L 137-14 5 Not Available [facility] (Lab) [address] [place], [address], 12/29/2021 17:07:19 12/30/19 22 12/29/2021 COMPR EHENS VALERIE METAB OLIC PANEL potassium 4.9 mmol/ L 3.5-5. 1 Not Available [facility] (Lab) [address] [place], [address], 12/29/2021 17:07:19 12/30/19 22 12/29/2021 COMPR EHENS VALERIE METAB OLIC PANEL chloride 104 mmol/ L 98-107 Not Available [facility] (Lab) [address] [place], [address], 12/29/2021 17:07:19 12/30/19 22 12/29/2021 COMPR EHENS VALERIE METAB OLIC PANEL carbon dioxide 23 mmol/ L 22-30 Not Available [facility] (Lab) [address] [place], [address], 12/29/2021 17:07:19 12/30/19 22 12/29/2021 COMPR EHENS VALERIE METAB OLIC PANEL anion gap 17.9 mmol/ L 14-22 Not Available [facility] (Lab) [address] [place], [address], 12/29/2021 17:07:19 12/30/19 22 12/29/2021 COMPR EHENS VALERIE METAB OLIC PANEL glucose 119 mg/dL 70-99 high Not Available [facility] (Lab) [address] [place], [address], 12/29/2021 17:07:19 12/30/19 22 12/29/2021 COMPR EHENS VALERIE METAB OLIC PANEL BUN 25 mg/dL 8-19 high Not Available [facility] (Lab) [address] [place], [address], 12/29/2021 17:07:19 12/30/19 22 12/29/2021 COMPR EHENS VALERIE METAB OLIC PANEL creatinine 1.24 mg/dL 0.66-1 .25 Not Available [facility] (Lab) [address] [place], [address], 12/29/2021 17:07:19 12/30/19 22 12/29/2021 COMPR EHENS VALERIE METAB OLIC PANEL GFR 57 Refer ence Range : [place] ge GFR Healt hy Adult : >60 mL/mi n/1.7 3 m2 Chron ic Kidne y Disea se: 15-60 mL/mi n/1.7 3 m2 Kidne y Failu re: <15/m L/min /1.73 m2 www.n iddk. nih.g ov The MDRD study equat ion has not been valid ated in child cherelle <18 years of age; pregn ant women ; the elder ly >85 years of age; or in some racia l or ethni c subgr oups, such as Hispa nics. Outsi de the valid ated arthur eters , estim ated GFR is less accur ate, requi ring clini zoe judgm ent on a case- by-ca se basis . Clini zoe inter preta tion for other races and ages must be made by the clini marianna. The MDRD study equat ion has not been valid ated for the evalu ation of serum creat inine relat ed to nutri patrick l statu s or medic ation usage . For perso ns <18 years of age, a pedia tric GFR calcu lator is avail able on the F websi te: https ://ww w.kid rosalva.o rg/pr ofess ional s/kdo qi/gf r_cal culat or Not Available [facility] (Lab) [address] [place], [address], 12/29/2021 17:07:19 12/30/19 22 12/29/2021 COMPR EHENS VALERIE METAB OLIC PANEL alkaline phosphatase 93 U/L 38-126 Not Available [facility] (Lab) [address] [place], [address], 12/29/2021 17:07:19 12/30/19 22 12/29/2021 COMPR EHENS VALERIE METAB OLIC PANEL alanine aminotransfe rase 16 U/L 0-50 Not Available [facility] (Lab) [address] [place], [address], 12/29/2021 17:07:19 12/30/19 22 12/29/2021 COMPR EHENS VALERIE METAB OLIC PANEL aspartate aminotransfe rase 27 U/L 15-46 Not Available [facility] (Lab) [address] [place], [address], 12/29/2021 17:07:19 12/30/19 22 12/29/2021 COMPR EHENS VALERIE METAB OLIC PANEL bilirubin, total 1.10 mg/dL 0.20-1 .30 Not Available [facility] (Lab) [address] [place], [address], 12/29/2021 17:07:19 12/30/19 22 12/29/2021 COMPR EHENS VALERIE METAB OLIC PANEL calcium 10.3 mg/dL 8.4-10 .2 high Not Available [facility] (Lab) [address] [place], [address], 12/29/2021 17:07:19 12/30/19 22 12/29/2021 COMPR EHENS VALERIE METAB OLIC PANEL total protein 8.2 g/dL 6.3-8. 2 Not Available [facility] (Lab) [address] [place], [address], 12/29/2021 17:07:19 12/30/19 22 12/29/2021 COMPR EHENS VALERIE METAB OLIC PANEL albumin 4.7 g/dL 3.0-4. 4 high Not Available [facility] (Lab) [address] [place], [address], 12/29/2021 17:07:19 12/30/19 22 12/29/2021 COMPR EHENS VALERIE METAB OLIC PANEL globulin 3.5 g/dL 2.6-4. 2 Not Available [facility] (Lab) [address] [place], [address], 12/29/2021 17:07:19 12/30/19 22 12/29/2021 COMPR EHENS VALERIE METAB OLIC PANEL A/G ratio 1.3 ratio 1.0-2. 0 Not Available [facility] (Lab) [address] [place], [address], 12/29/2021 17:07:19 12/30/19 22 12/29/2021 LIPID PANEL cholesterol 151 mg/dL 140-19 9 NIH KRISTINE NSUS RECOM MENDA TION FOR IVAN STERO L: ADULT CHILD LOW RISK: <200 <170 BORDE RLINE : <200- 239 ----- HIGH RISK: >240 >200 Not Available [facility] (Lab) [address] [place], [address], 12/29/2021 17:07:15 12/30/1912/29/2021 LIPID PANEL triglyceride s 179 mg/dL 0-150 high NIH KRISTINE NSUS REPOR T RECOM MENDA TION FOR TRIGL YCERI FLACO: ADULT CHILD LOW RISK: <150 ----- BODER LINE: 150-1 99 ----- HIGH RISK: >200 ----- Not Available [facility] (Lab) [address] [place], [address], 12/29/2021 17:07:15 12/30/1912/29/2021 LIPID PANEL HDL cholesterol 45 mg/dL 40- Not Available [facility] (Lab) [address] [place], [address], 12/29/2021 17:07:15 12/30/19 22 12/29/2021 LIPID PANEL LDL cholesterol, calculated 70 mg/dL 0-130 NIH KRISTINE NSUS REPOR T RECOM MENDA TIONS FOR LDL: ADULT CHILD LOW RISK <130 <110 (OPTI MAL LDL) <100 ----- BORDE RLINE : 130-1 59 ----- HIGH RISK: >160 >130 A TRIGL YCERI DE RESUL T >400 INVAL IDATE S THE CALCU LATIO N FOR LDL FRACT IONAT ION - THE LDL RESUL T WILL NOT BE REPOR LILIBETH. Not Available [facility] (Lab) [address] [place], [address], 12/29/2021 17:07:15 12/30/19 22 12/29/2021 CBC/C OMPLE TE BLD COUNT W/DIF F white blood cells 11.1 x10'3 /uL 4.2-10 .8 high Not Available [facility] (Lab) [address] [place], [address], 12/29/2021 16:22:54 12/30/19 22 12/29/2021 CBC/C OMPLE TE BLD COUNT W/DIF F red blood cells 5.11 x10'6 /uL 4.10-5 .80 Not Available [facility] (Lab) [address] [place], [address], 12/29/2021 16:22:54 12/30/19 22 12/29/2021 CBC/C OMPLE TE BLD COUNT W/DIF F hemoglobin 14.5 g/dL 13.2-1 7.0 Not Available [facility] (Lab) [address] [place], [address], 12/29/2021 16:22:54 12/30/19 22 12/29/2021 CBC/C OMPLE TE BLD COUNT W/DIF F hematocrit 47.0 % 39.3-5 0.0 Not Available [facility] (Lab) [address] [place], [address], 12/29/2021 16:22:54 12/30/19 22 12/29/2021 CBC/C OMPLE TE BLD COUNT W/DIF F mean red cell volume 92.0 fL 80.0-9 7.0 Not Available [facility] (Lab) [address] [place], [address], 12/29/2021 16:22:54 12/30/19 22 12/29/2021 CBC/C OMPLE TE BLD COUNT W/DIF F mean red cell hemoglobin 28.4 pg 27.0-3 3.0 Not Available [facility] (Lab) [address] [place], [address], 12/29/2021 16:22:54 12/30/19 22 12/29/2021 CBC/C OMPLE TE BLD COUNT W/DIF F mean RBC HGB concentratio n 30.9 g/dL 31.0-3 6.0 low Not Available [facility] (Lab) [address] [place], [address], 12/29/2021 16:22:54 12/30/19 22 12/29/2021 CBC/C OMPLE TE BLD COUNT W/DIF F red cell distribution width 15.3 % 11.8-1 5.5 Not Available [facility] (Lab) [address] [place], [address], 12/29/2021 16:22:54 12/30/19 22 12/29/2021 CBC/C OMPLE TE BLD COUNT W/DIF F platelets 302 x10'3 /uL 150-40 0 Not Available [facility] (Lab) [address] [place], [address], 12/29/2021 16:22:54 12/30/19 22 12/29/2021 CBC/C OMPLE TE BLD COUNT W/DIF F mean platelet volume 10.8 fL 9.0-12 .4 Not Available [facility] (Lab) [address] [place], [address], 12/29/2021 16:22:54 12/30/19 22 12/29/2021 CBC/C OMPLE TE BLD COUNT W/DIF F neutrophils 70.9 % 39.0-7 2.0 Not Available [facility] (Lab) [address] [place], [address], 12/29/2021 16:22:54 12/30/19 22 12/29/2021 CBC/C OMPLE TE BLD COUNT W/DIF F lymphocytes 17.0 % 16.0-4 7.0 Not Available [facility] (Lab) [address] [place], [address], 12/29/2021 16:22:54 12/30/19 22 12/29/2021 CBC/C OMPLE TE BLD COUNT W/DIF F monocytes 10.6 % 5.0-12 .0 Not Available [facility] (Lab) [address] [place], [address], 12/29/2021 16:22:54 12/30/19 22 12/29/2021 CBC/C OMPLE TE BLD COUNT W/DIF F eosinophils 0.5 % 1.0-7. 0 low Not Available [facility] (Lab) [address] [place], [address], 12/29/2021 16:22:54 12/30/19 22 12/29/2021 CBC/C OMPLE TE BLD COUNT W/DIF F basophils 0.6 % 0.0-2. 0 Not Available [facility] (Lab) [address] [place], [address], 12/29/2021 16:22:54 12/30/19 22 12/29/2021 CBC/C OMPLE TE BLD COUNT W/DIF F immature granulocytes 0.4 % 0.00-0 .50 Not Available [facility] (Lab) [address] [place], [address], 12/29/2021 16:22:54 12/30/19 22 12/29/2021 CBC/C OMPLE TE BLD COUNT W/DIF F neutrophils, absolute count 7.88 x10'3 /uL 1.5-8. 0 Not Available [facility] (Lab) [address] [place], [address], 12/29/2021 16:22:54 12/30/19 22 12/29/2021 CBC/C OMPLE TE BLD COUNT W/DIF F lymphocytes, absolute count 1.89 x10'3 /uL 1.07-3 .43 Not Available [facility] (Lab) [address] [place], [address], 12/29/2021 16:22:54 12/30/19 22 12/29/2021 CBC/C OMPLE TE BLD COUNT W/DIF F monocytes, absolute count 1.18 x10'3 /uL 0.29-0 .99 high Not Available [facility] (Lab) [address] [place], [address], 12/29/2021 16:22:54 12/30/19 22 12/29/2021 CBC/C OMPLE TE BLD COUNT W/DIF F eosinophils, absolute count 0.06 x10'3 /uL 0.02-0 .53 Not Available [facility] (Lab) [address] [place], [address], 12/29/2021 16:22:54 12/30/19 22 12/29/2021 CBC/C OMPLE TE BLD COUNT W/DIF F basophils, absolute count 0.07 x10'3 /uL 0.01-0 .08 Not Available [facility] (Lab) [address] [place], [address], 12/29/2021 16:22:54 12/30/19 22 12/29/2021 CBC/C OMPLE TE BLD COUNT W/DIF F immature granulocytes ,absolute 0.05 x10'3 /uL 0.00-0 .05 Not Available [facility] (Lab) [address] [place], [address], 12/29/2021 16:22:54 12/30/19 22 12/29/2021 CBC/C OMPLE TE BLD COUNT W/DIF F nucleated red blood cells 0.0 % -0 Not Available [facility] (Lab) [address] [place], [address], 12/29/2021 16:22:54 12/30/19 22 12/29/2021 CBC/C OMPLE TE BLD COUNT W/DIF F NRBC# 0.00 x10'3 /uL Not Available [facility] (Lab) [address] [place], [address], 12/29/2021 16:22:54 06/29/20 22 06/29/2022 HEMOG LOBIN A1C HA1C 5.8 % 4.0-6. 0 Diabe diana Scree torri Crite pattie: <5.7% Consi stent with absen ce of diabe diana 5.7-6 .4% Consi stent with incre ased risk for diabe diana (pred iabet es) >OR=6 .5% Consi stent with diabe diana REFER ENCE: Diabe diana Care 2015, 39(Norman ppl.1 ):s13 -s22 Not Available [facility] (Lab) [address] [place], [address], 06/29/2022 20:46:32 06/29/20 22 06/29/2022 COMPR EHENS VALERIE METAB OLIC PANEL sodium 139 mmol/ L 137-14 5 Not Available [facility] (Lab) [address] [place], [address], 06/29/2022 16:56:43 06/29/20 22 06/29/2022 COMPR EHENS VALERIE METAB OLIC PANEL potassium 5.1 mmol/ L 3.5-5. 1 Not Available [facility] (Lab) [address] [place], [address], 06/29/2022 16:56:43 06/29/20 22 06/29/2022 COMPR EHENS VALERIE METAB OLIC PANEL chloride 104 mmol/ L 98-107 Not Available [facility] (Lab) [address] [place], [address], 06/29/2022 16:56:43 06/29/20 22 06/29/2022 COMPR EHENS VALERIE METAB OLIC PANEL carbon dioxide 26 mmol/ L 22-30 Not Available [facility] (Lab) [address] [place], [address], 06/29/2022 16:56:43 06/29/2006/29/2022 COMPR EHENS VALERIE METAB OLIC PANEL anion gap 14.1 mmol/ L 14-22 Not Available [facility] (Lab) [address] [place], [address], 06/29/2022 16:56:43 06/29/20 22 06/29/2022 COMPR EHENS VALERIE METAB OLIC PANEL glucose 125 mg/dL 70-99 high Not Available [facility] (Lab) [address] [place], [address], 06/29/2022 16:56:43 06/29/20 22 06/29/2022 COMPR EHENS VALERIE METAB OLIC PANEL BUN 23 mg/dL 8-19 high Not Available [facility] (Lab) [address] [place], [address], 06/29/2022 16:56:43 06/29/20 22 06/29/2022 COMPR EHENS VALERIE METAB OLIC PANEL creatinine 1.25 mg/dL 0.66-1 .25 Not Available [facility] (Lab) [address] [place], [address], 06/29/2022 16:56:43 06/29/20 22 06/29/2022 COMPR EHENS VALERIE METAB OLIC PANEL GFR 56 Refer ence Range : [place] ge GFR Healt hy Adult : >60 mL/mi n/1.7 3 m2 Chron ic Kidne y Disea se: 15-60 mL/mi n/1.7 3 m2 Kidne y Failu re: <15/m L/min /1.73 m2 www.n iddk. nih.g ov The MDRD study equat ion has not been valid ated in child cherelle <18 years of age; pregn ant women ; the elder ly >85 years of age; or in some racia l or ethni c subgr oups, such as Hispa nics. Outsi de the valid ated arthur eters , estim ated GFR is less accur ate, requi ring clini zoe judgm ent on a case- by-ca se basis . Clini zoe inter preta tion for other races and ages must be made by the clini marianna. The MDRD study equat ion has not been valid ated for the evalu ation of serum creat inine relat ed to nutri patrick l statu s or medic ation usage . For perso ns <18 years of age, a pedia tric GFR calcu lator is avail able on the [facility] websi te: https ://tom blackwell.chantal slaughter/pr morroess ional s/kdo qi/gf r_cal culat or Not Available [facility] (Lab) [address] [place], [address], 06/29/2022 16:56:43 06/29/2006/29/2022 COMPR EHENS VALERIE METAB OLIC PANEL alkaline phosphatase 87 U/L 38-126 Not Available [facility] (Lab) [address] [place], [address], 06/29/2022 16:56:43 06/29/2006/29/2022 COMPR EHENS VALERIE METAB OLIC PANEL alanine aminotransfe rase 17 U/L 0-50 Not Available [facility] (Lab) [address] [place], [address], 06/29/2022 16:56:43 06/29/20 22 06/29/2022 COMPR EHENS VALERIE METAB OLIC PANEL aspartate aminotransfe rase 24 U/L 15-46 Not Available [facility] (Lab) [address] [place], [address], 06/29/2022 16:56:43 06/29/20 22 06/29/2022 COMPR EHENS VALERIE METAB OLIC PANEL bilirubin, total 0.90 mg/dL 0.20-1 .30 Not Available [facility] (Lab) [address] [place], [address], 06/29/2022 16:56:43 06/29/2006/29/2022 COMPR EHENS VALERIE METAB OLIC PANEL calcium 10.2 mg/dL 8.4-10 .2 Not Available [facility] (Lab) [address] [place], [address], 06/29/2022 16:56:43 06/29/2006/29/2022 COMPR EHENS VALERIE METAB OLIC PANEL total protein 7.4 g/dL 6.3-8. 2 Not Available [facility] (Lab) [address] [place], [address], 06/29/2022 16:56:43 06/29/2006/29/2022 COMPR EHENS VALERIE METAB OLIC PANEL albumin 4.4 g/dL 3.0-4. 4 Not Available [facility] (Lab) [address] [place], [address], 06/29/2022 16:56:43 06/29/2006/29/2022 COMPR EHENS VALERIE METAB OLIC PANEL globulin 3.0 g/dL 2.6-4. 2 Not Available [facility] (Lab) [address] [place], [address], 06/29/2022 16:56:43 06/29/2006/29/2022 COMPR EHENS VALERIE METAB OLIC PANEL A/G ratio 1.5 ratio 1.0-2. 0 Not Available [facility] (Lab) [address] [place], [address], 06/29/2022 16:56:43 06/29/20 22 06/29/2022 LIPID PANEL cholesterol 134 mg/dL 140-19 9 low NIH KRISTINE NSUS RECOM MENDA TION FOR IVAN STERO L: ADULT CHILD LOW RISK: <200 <170 BORDE RLINE : <200- 239 ----- HIGH RISK: >240 >200 Not Available [facility] (Lab) [address] [place], [address], 06/29/2022 16:56:36 06/29/20 22 06/29/2022 LIPID PANEL triglyceride s 253 mg/dL 0-150 high NIH KRISTINE NSUS REPOR T RECOM MENDA TION FOR TRIGL YCERI FLACO: ADULT CHILD LOW RISK: <150 ----- BODER LINE: 150-1 99 ----- HIGH RISK: >200 ----- Not Available [facility] (Lab) [address] [place], [address], 06/29/2022 16:56:36 06/29/20 22 06/29/2022 LIPID PANEL HDL cholesterol 40 mg/dL 40- Not Available [facility] (Lab) [address] [place], [address], 06/29/2022 16:56:36 06/29/20 22 06/29/2022 LIPID PANEL LDL cholesterol, calculated 43 mg/dL 0-130 NIH KRISTINE NSUS REPOR T RECOM MENDA TIONS FOR LDL: ADULT CHILD LOW RISK <130 <110 (OPTI MAL LDL) <100 ----- BORDE RLINE : 130-1 59 ----- HIGH RISK: >160 >130 A TRIGL YCERI DE RESUL T >400 INVAL IDATE S THE CALCU LATIO N FOR LDL FRACT IONAT ION - THE LDL RESUL T WILL NOT BE REPOR LILIBETH. Not Available [facility] (Lab) [address] [place], [address], 06/29/2022 16:56:36 06/29/2006/29/2022 MICRO ALBUM N RNDM W/CRE AT RATIO ur creat 112.30 mg/dL REFER ENCE RANGE NOT ESTAB LISHE D FOR RANDO M URINE CREAT ININE Not Available [facility] (Lab) [address] [place], [address], 06/29/2022 16:54:02 06/29/20 22 06/29/2022 MICRO ALBUM N RNDM W/CRE AT RATIO microalbumin , urine 24.1 mg/L 0.0-16 .6 high Not Available [facility] (Lab) [address] [place], [address], 06/29/2022 16:54:02 06/29/20 22 06/29/2022 MICRO ALBUM N RNDM W/CRE AT RATIO microalbumin /creatinine ratio 21 mcg/m g 0-29 THE AMERI CAN DIABE DIANA ASSOC IATIO N DEFIN ES ABNOR MALIT IES IN ALBUM IN EXCRE TION FOLLO WS: CATEG ORY RESUL T (MCG/ MG CREAT ININE ) WU L <30 MICRO ALBUM INURI A 30-29 9 CLINI ZOE ALBUM INURI A > OR = 300 THE ADA RECOM MENDS THAT 2 OF 2 SPECI MENS COLLE CTED WITHI N A 3- TO 6-MON TH PERIO D BE ABNOR MAL BEFOR E CONSI KRISTA G A PATIE NT TO HAVE CROSS ED ONE OF THESE DIAGN OSTIC THRES HOLDS . REFER ENCE: DIABE DIANA CARE, VOL. 26: [id number], 2002 Not Available [facility] (Lab) [address] [place], [address], 06/29/2022 16:54:02 06/29/20 22 06/29/2022 CBC/C OMPLE TE BLD COUNT W/DIF F eosinophils, absolute count 0.13 x10'3 /uL 0.02-0 .53 Not Available [facility] (Lab) [address] [place], [address], 06/29/2022 16:34:00 06/29/20 22 06/29/2022 CBC/C OMPLE TE BLD COUNT W/DIF F basophils, absolute count 0.07 x10'3 /uL 0.01-0 .08 Not Available [facility] (Lab) [address] [place], [address], 06/29/2022 16:34:00 06/29/20 22 06/29/2022 CBC/C OMPLE TE BLD COUNT W/DIF F immature granulocytes ,absolute 0.04 x10'3 /uL 0.00-0 .05 Not Available [facility] (Lab) [address] [place], [address], 06/29/2022 16:34:00 06/29/20 22 06/29/2022 CBC/C OMPLE TE BLD COUNT W/DIF F nucleated red blood cells 0.0 % -0 Not Available [facility] (Lab) [address] [place], [address], 06/29/2022 16:34:00 06/29/20 22 06/29/2022 CBC/C OMPLE TE BLD COUNT W/DIF F NRBC# 0.00 x10'3 /uL Not Available [facility] (Lab) [address] [place], [address], 06/29/2022 16:34:00 06/29/20 22 06/29/2022 CBC/C OMPLE TE BLD COUNT W/DIF F white blood cells 9.8 x10'3 /uL 4.2-10 .8 Not Available [facility] (Lab) [address] [place], [address], 06/29/2022 16:34:00 06/29/20 22 06/29/2022 CBC/C OMPLE TE BLD COUNT W/DIF F red blood cells 4.80 x10'6 /uL 4.10-5 .80 Not Available [facility] (Lab) [address] [place], [address], 06/29/2022 16:34:00 06/29/20 22 06/29/2022 CBC/C OMPLE TE BLD COUNT W/DIF F hemoglobin 14.3 g/dL 13.2-1 7.0 Not Available [facility] (Lab) [address] [place], [address], 06/29/2022 16:34:00 06/29/20 22 06/29/2022 CBC/C OMPLE TE BLD COUNT W/DIF F hematocrit 45.7 % 39.3-5 0.0 Not Available [facility] (Lab) [address] [place], [address], 06/29/2022 16:34:00 06/29/20 22 06/29/2022 CBC/C OMPLE TE BLD COUNT W/DIF F mean red cell volume 95.2 fL 80.0-9 7.0 Not Available [facility] (Lab) [address] [place], [address], 06/29/2022 16:34:00 06/29/20 22 06/29/2022 CBC/C OMPLE TE BLD COUNT W/DIF F mean red cell hemoglobin 29.8 pg 27.0-3 3.0 Not Available [facility] (Lab) [address] [place], [address], 06/29/2022 16:34:00 06/29/20 22 06/29/2022 CBC/C OMPLE TE BLD COUNT W/DIF F mean RBC HGB concentratio n 31.3 g/dL 31.0-3 6.0 Not Available [facility] (Lab) [address] [place], [address], 06/29/2022 16:34:00 06/29/20 22 06/29/2022 CBC/C OMPLE TE BLD COUNT W/DIF F red cell distribution width 13.4 % 11.8-1 5.5 Not Available [facility] (Lab) [address] [place], [address], 06/29/2022 16:34:00 06/29/20 22 06/29/2022 CBC/C OMPLE TE BLD COUNT W/DIF F platelets 274 x10'3 /uL 150-40 0 Not Available [facility] (Lab) [address] [place], [address], 06/29/2022 16:34:00 06/29/2006/29/2022 CBC/C OMPLE TE BLD COUNT W/DIF F mean platelet volume 10.6 fL 9.0-12 .4 Not Available [facility] (Lab) [address] [place], [address], 06/29/2022 16:34:00 06/29/20 22 06/29/2022 CBC/C OMPLE TE BLD COUNT W/DIF F neutrophils 68.7 % 39.0-7 2.0 Not Available [facility] (Lab) [address] [place], [address], 06/29/2022 16:34:00 06/29/2006/29/2022 CBC/C OMPLE TE BLD COUNT W/DIF F lymphocytes 18.5 % 16.0-4 7.0 Not Available [facility] (Lab) [address] [place], [address], 06/29/2022 16:34:00 06/29/2006/29/2022 CBC/C OMPLE TE BLD COUNT W/DIF F monocytes 10.4 % 5.0-12 .0 Not Available [facility] (Lab) [address] [place], [address], 06/29/2022 16:34:00 06/29/20 22 06/29/2022 CBC/C OMPLE TE BLD COUNT W/DIF F eosinophils 1.3 % 1.0-7. 0 Not Available [facility] (Lab) [address] [place], [address], 06/29/2022 16:34:00 06/29/20 22 06/29/2022 CBC/C OMPLE TE BLD COUNT W/DIF F basophils 0.7 % 0.0-2. 0 Not Available [facility] (Lab) [address] [place], [address], 06/29/2022 16:34:00 06/29/20 22 06/29/2022 CBC/C OMPLE TE BLD COUNT W/DIF F immature granulocytes 0.4 % 0.00-0 .50 Not Available [facility] (Lab) [address] [place], [address], 06/29/2022 16:34:00 06/29/20 22 06/29/2022 CBC/C OMPLE TE BLD COUNT W/DIF F neutrophils, absolute count 6.70 x10'3 /uL 1.5-8. 0 Not Available [facility] (Lab) [address] [place], [address], 06/29/2022 16:34:00 06/29/20 22 06/29/2022 CBC/C OMPLE TE BLD COUNT W/DIF F lymphocytes, absolute count 1.81 x10'3 /uL 1.07-3 .43 Not Available [facility] (Lab) [address] [place], [address], 06/29/2022 16:34:00 06/29/20 22 06/29/2022 CBC/C OMPLE TE BLD COUNT W/DIF F monocytes, absolute count 1.02 x10'3 /uL 0.29-0 .99 high Not Available [facility] (Lab) [address] [place], [address], 06/29/2022 16:34:00 12/22/19 23 12/21/2022 CBC/C OMPLE TE BLD COUNT W/DIF F white blood cells 7.8 x10'3 /uL 4.2-10 .8 Not Available [facility] (Lab) [address] [place], [address], 12/21/2022 15:35:42 12/22/19 23 12/21/2022 CBC/C OMPLE TE BLD COUNT W/DIF F red blood cells 4.25 x10'6 /uL 4.10-5 .80 Not Available [facility] (Lab) [address] [place], [address], 12/21/2022 15:35:42 12/22/19 23 12/21/2022 CBC/C OMPLE TE BLD COUNT W/DIF F hemoglobin 12.1 g/dL 13.2-1 7.0 low Not Available [facility] (Lab) [address] [place], [address], 12/21/2022 15:35:42 12/22/19 23 12/21/2022 CBC/C OMPLE TE BLD COUNT W/DIF F hematocrit 39.7 % 39.3-5 0.0 Not Available [facility] (Lab) [address] [place], [address], 12/21/2022 15:35:42 12/22/19 23 12/21/2022 CBC/C OMPLE TE BLD COUNT W/DIF F mean red cell volume 93.4 fL 80.0-9 7.0 Not Available [facility] (Lab) [address] [place], [address], 12/21/2022 15:35:42 12/22/19 23 12/21/2022 CBC/C OMPLE TE BLD COUNT W/DIF F mean red cell hemoglobin 28.5 pg 27.0-3 3.0 Not Available [facility] (Lab) [address] [place], [address], 12/21/2022 15:35:42 12/22/19 23 12/21/2022 CBC/C OMPLE TE BLD COUNT W/DIF F mean RBC HGB concentratio n 30.5 g/dL 31.0-3 6.0 low Not Available [facility] (Lab) [address] [place], [address], 12/21/2022 15:35:42 12/22/19 23 12/21/2022 CBC/C OMPLE TE BLD COUNT W/DIF F red cell distribution width 13.5 % 11.8-1 5.5 Not Available [facility] (Lab) [address] [place], [address], 12/21/2022 15:35:42 12/22/19 23 12/21/2022 CBC/C OMPLE TE BLD COUNT W/DIF F platelets 322 x10'3 /uL 150-40 0 Not Available [facility] (Lab) [address] [place], [address], 12/21/2022 15:35:42 12/22/19 23 12/21/2022 CBC/C OMPLE TE BLD COUNT W/DIF F mean platelet volume 10.5 fL 9.0-12 .4 Not Available [facility] (Lab) [address] [place], [address], 12/21/2022 15:35:42 12/22/19 23 12/21/2022 CBC/C OMPLE TE BLD COUNT W/DIF F neutrophils 64.2 % 39.0-7 2.0 Not Available [facility] (Lab) [address] [place], [address], 12/21/2022 15:35:42 12/22/19 23 12/21/2022 CBC/C OMPLE TE BLD COUNT W/DIF F lymphocytes 22.3 % 16.0-4 7.0 Not Available [facility] (Lab) [address] [place], [address], 12/21/2022 15:35:42 12/22/19 23 12/21/2022 CBC/C OMPLE TE BLD COUNT W/DIF F monocytes 10.6 % 5.0-12 .0 Not Available [facility] (Lab) [address] [place], [address], 12/21/2022 15:35:42 12/22/19 23 12/21/2022 CBC/C OMPLE TE BLD COUNT W/DIF F eosinophils 1.8 % 1.0-7. 0 Not Available [facility] (Lab) [address] [place], [address], 12/21/2022 15:35:42 12/22/19 23 12/21/2022 CBC/C OMPLE TE BLD COUNT W/DIF F basophils 0.8 % 0.0-2. 0 Not Available [facility] (Lab) [address] [place], [address], 12/21/2022 15:35:42 12/22/19 23 12/21/2022 CBC/C OMPLE TE BLD COUNT W/DIF F immature granulocytes 0.3 % 0.00-0 .50 Not Available [facility] (Lab) [address] [place], [address], 12/21/2022 15:35:42 12/22/19 23 12/21/2022 CBC/C OMPLE TE BLD COUNT W/DIF F neutrophils, absolute count 5.03 x10'3 /uL 1.5-8. 0 Not Available [facility] (Lab) [address] [place], [address], 12/21/2022 15:35:42 12/22/19 23 12/21/2022 CBC/C OMPLE TE BLD COUNT W/DIF F lymphocytes, absolute count 1.74 x10'3 /uL 1.07-3 .43 Not Available [facility] (Lab) [address] [place], [address], 12/21/2022 15:35:42 12/22/19 23 12/21/2022 CBC/C OMPLE TE BLD COUNT W/DIF F monocytes, absolute count 0.83 x10'3 /uL 0.29-0 .99 Not Available [facility] (Lab) [address] [place], [address], 12/21/2022 15:35:42 12/22/19 23 12/21/2022 CBC/C OMPLE TE BLD COUNT W/DIF F eosinophils, absolute count 0.14 x10'3 /uL 0.02-0 .53 Not Available [facility] (Lab) [address] [place], [address], 12/21/2022 15:35:42 12/22/19 23 12/21/2022 CBC/C OMPLE TE BLD COUNT W/DIF F basophils, absolute count 0.06 x10'3 /uL 0.01-0 .08 Not Available [facility] (Lab) [address] [place], [address], 12/21/2022 15:35:42 12/22/19 23 12/21/2022 CBC/C OMPLE TE BLD COUNT W/DIF F immature granulocytes ,absolute 0.02 x10'3 /uL 0.00-0 .05 Not Available [facility] (Lab) [address] [place], [address], 12/21/2022 15:35:42 12/22/19 23 12/21/2022 CBC/C OMPLE TE BLD COUNT W/DIF F nucleated red blood cells 0.0 % -0 Not Available [facility] (Lab) [address] [place], [address], 12/21/2022 15:35:42 12/22/19 23 12/21/2022 CBC/C OMPLE TE BLD COUNT W/DIF F NRBC# 0.00 x10'3 /uL Not Available [facility] (Lab) [address] [place], [address], 12/21/2022 15:35:42 12/22/19 23 12/21/2022 COMPR EHENS VALERIE METAB OLIC PANEL sodium 140 mmol/ L 137-14 5 Not Available [facility] (Lab) [address] [place], [address], 12/21/2022 15:55:01 12/22/19 23 12/21/2022 COMPR EHENS VALERIE METAB OLIC PANEL potassium 4.8 mmol/ L 3.5-5. 1 Not Available [facility] (Lab) [address] [place], [address], 12/21/2022 15:55:01 12/22/19 23 12/21/2022 COMPR EHENS VALERIE METAB OLIC PANEL chloride 105 mmol/ L 98-107 Not Available [facility] (Lab) [address] [place], [address], 12/21/2022 15:55:01 12/22/19 23 12/21/2022 COMPR EHENS VALERIE METAB OLIC PANEL carbon dioxide 26 mmol/ L 22-30 Not Available [facility] (Lab) [address] [place], [address], 12/21/2022 15:55:01 12/22/19 23 12/21/2022 COMPR EHENS VALERIE METAB OLIC PANEL anion gap 13.8 mmol/ L 14-22 low Not Available [facility] (Lab) [address] [place], [address], 12/21/2022 15:55:01 12/22/19 23 12/21/2022 COMPR EHENS VALERIE METAB OLIC PANEL glucose 108 mg/dL 70-99 high Not Available [facility] (Lab) [address] [place], [address], 12/21/2022 15:55:01 12/22/1912/21/2022 COMPR EHENS VALERIE METAB OLIC PANEL BUN 25 mg/dL 8-19 high Not Available [facility] (Lab) [address] [place], [address], 12/21/2022 15:55:01 12/22/19 23 12/21/2022 COMPR EHENS VALERIE METAB OLIC PANEL creatinine 1.27 mg/dL 0.66-1 .25 high Not Available [facility] (Lab) [address] [place], [address], 12/21/2022 15:55:01 12/22/19 23 12/21/2022 COMPR EHENS VALERIE METAB OLIC PANEL GFR 55 Refer ence Range : [place] ge GFR Healt hy Adult : >60 mL/mi n/1.7 3 m2 Chron ic Kidne y Disea se: 15-60 mL/mi n/1.7 3 m2 Kidne y Failu re: <15/m L/min /1.73 m2 www.n iddk. nih.g ov The MDRD study equat ion has not been valid ated in child cherelle <18 years of age; pregn ant women ; the elder ly >85 years of age; or in some racia l or ethni c subgr oups, such as [facility] nics. Outsi de the valid ated arthur eters , estim ated GFR is less accur ate, requi ring clini zoe judgm ent on a case- by-ca se basis . Clini zoe inter preta tion for other races and ages must be made by the clini marianna. The MDRD study equat ion has not been valid ated for the evalu ation of serum creat inine relat ed to nutri patrick l statu s or medic ation usage . For perso ns <18 years of age, a pedia tric GFR calcu lator is avail able on the [facility] websi te: https :[email or web address] resendez.surendra blackwell.o rg/pr ofess ional s/kdo qi/gf r_cal culat or Not Available [facility] (Lab) [address] [place], [address], 12/21/2022 15:55:01 12/22/19 23 12/21/2022 COMPR EHENS VALERIE METAB OLIC PANEL alkaline phosphatase 72 U/L 38-126 Not Available [facility] (Lab) [address] [place], [address], 12/21/2022 15:55:01 12/22/19 23 12/21/2022 COMPR EHENS VALERIE METAB OLIC PANEL alanine aminotransfe rase 22 U/L 0-50 Not Available [facility] (Lab) [address] [place], [address], 12/21/2022 15:55:01 12/22/19 23 12/21/2022 COMPR EHENS VALERIE METAB OLIC PANEL aspartate aminotransfe rase 28 U/L 15-46 Not Available [facility] (Lab) [address] [place], [address], 12/21/2022 15:55:01 12/22/19 23 12/21/2022 COMPR EHENS VALERIE METAB OLIC PANEL bilirubin, total 0.80 mg/dL 0.20-1 .30 Not Available [facility] (Lab) [address] [place], [address], 12/21/2022 15:55:01 12/22/19 23 12/21/2022 COMPR EHENS VALERIE METAB OLIC PANEL calcium 9.8 mg/dL 8.4-10 .2 Not Available [facility] (Lab) [address] [place], [address], 12/21/2022 15:55:01 12/22/19 23 12/21/2022 COMPR EHENS VALERIE METAB OLIC PANEL total protein 7.5 g/dL 6.3-8. 2 Not Available [facility] (Lab) [address] [place], [address], 12/21/2022 15:55:01 12/22/19 23 12/21/2022 COMPR EHENS VALERIE METAB OLIC PANEL albumin 4.4 g/dL 3.0-4. 4 Not Available [facility] (Lab) [address] [place], [address], 12/21/2022 15:55:01 12/22/19 23 12/21/2022 COMPR EHENS VALERIE METAB OLIC PANEL globulin 3.1 g/dL 2.6-4. 2 Not Available [facility] (Lab) [address] [place], [address], 12/21/2022 15:55:01 12/22/19 23 12/21/2022 COMPR EHENS VALERIE METAB OLIC PANEL A/G ratio 1.4 ratio 1.0-2. 0 Not Available [facility] (Lab) [address] [place], [address], 12/21/2022 15:55:01 12/22/1912/21/2022 LIPID PANEL cholesterol 128 mg/dL 140-19 9 low NIH KRISTINE NSUS RECOM MENDA TION FOR IVAN STERO L: ADULT CHILD LOW RISK: <200 <170 BORDE RLINE : <200- 239 ----- HIGH RISK: >240 >200 Not Available [facility] (Lab) [address] [place], [address], 12/21/2022 15:55:03 12/22/1912/21/2022 LIPID PANEL triglyceride s 193 mg/dL 0-150 high NIH KRISTINE NSUS REPOR T RECOM MENDA TION FOR TRIGL YCERI FLACO: ADULT CHILD LOW RISK: <150 ----- BODER LINE: 150-1 99 ----- HIGH RISK: >200 ----- Not Available [facility] (Lab) [address] [place], [address], 12/21/2022 15:55:03 12/22/19 23 12/21/2022 LIPID PANEL HDL cholesterol 42 mg/dL 40- Not Available [facility] (Lab) [address] [place], [address], 12/21/2022 15:55:03 12/22/19 23 12/21/2022 LIPID PANEL LDL cholesterol, calculated 47 mg/dL 0-130 NIH KRISTINE NSUS REPOR T RECOM MENDA TIONS FOR LDL: ADULT CHILD LOW RISK <130 <110 (OPTI MAL LDL) <100 ----- BORDE RLINE : 130-1 59 ----- HIGH RISK: >160 >130 A TRIGL YCERI DE RESUL T >400 INVAL IDATE S THE CALCU LATIO N FOR LDL FRACT IONAT ION - THE LDL RESUL T WILL NOT BE REPOR LILIBETH. Not Available [facility] (Lab) [address] [place], [address], 12/21/2022 15:55:03 12/22/19 23 12/21/2022 PSA, TOTAL PSA, total 3.68 NG/mL 0.00-4 .00 Not Available [facility] (Lab) [address] [place], [address], 12/21/2022 16:20:55 12/22/19 23 12/21/2022 HEMOG LOBIN A1C HA1C 5.7 % 4.0-6. 0 Diabe diana Scree torri Crite pattie: <5.7% Consi stent with absen ce of diabe diana 5.7-6 .4% Consi stent with incre ased risk for diabe diana (pred iabet es) >OR=6 .5% Consi stent with diabe diana REFER ENCE: Diabe diana Care 2016, 39(Norman ppl.1 ):s13 -s22 Not Available [facility] (Lab) [address] [place], [address], 12/21/2022 20:11:21 10/06/02 2306/21/2023 CBC/C OMPLE TE BLD COUNT W/DIF F white blood cells 7.5 x10'3 /uL 4.2-10 .8 Not Available [facility] (Lab) [address] [place], [address], 06/21/2023 15:37:29 06/21/20 23 06/21/2023 CBC/C OMPLE TE BLD COUNT W/DIF F red blood cells 4.56 x10'6 /uL 4.10-5 .80 Not Available [facility] (Lab) [address] [place], [address], 06/21/2023 15:37:29 06/21/2006/21/2023 CBC/C OMPLE TE BLD COUNT W/DIF F hemoglobin 12.7 g/dL 13.2-1 7.0 low Not Available [facility] (Lab) [address] [place], [address], 06/21/2023 15:37:29 06/21/2006/21/2023 CBC/C OMPLE TE BLD COUNT W/DIF F hematocrit 41.7 % 39.3-5 0.0 Not Available [facility] (Lab) [address] [place], [address], 06/21/2023 15:37:29 06/21/2006/21/2023 CBC/C OMPLE TE BLD COUNT W/DIF F mean red cell volume 91.4 fL 80.0-9 7.0 Not Available [facility] (Lab) [address] [facility] [place], [address], 06/21/2023 15:37:29 06/21/2006/21/2023 CBC/C OMPLE TE BLD COUNT W/DIF F mean red cell hemoglobin 27.9 pg 27.0-3 3.0 Not Available [facility] (Lab) [address] [place], [address], 06/21/2023 15:37:29 06/21/20 23 06/21/2023 CBC/C OMPLE TE BLD COUNT W/DIF F mean RBC HGB concentratio n 30.5 g/dL 31.0-3 6.0 low Not Available [facility] (Lab) [address] [place], [address], 06/21/2023 15:37:29 06/21/2006/21/2023 CBC/C OMPLE TE BLD COUNT W/DIF F red cell distribution width 14.6 % 11.8-1 5.5 Not Available [facility] (Lab) [address] [place], [address], 06/21/2023 15:37:29 06/21/2006/21/2023 CBC/C OMPLE TE BLD COUNT W/DIF F platelets 300 x10'3 /uL 150-40 0 Not Available [facility] (Lab) [address] [place], [address], 06/21/2023 15:37:29 06/21/2006/21/2023 CBC/C OMPLE TE BLD COUNT W/DIF F mean platelet volume 10.7 fL 9.0-12 .4 Not Available [facility] (Lab) [address] [place], [address], 06/21/2023 15:37:29 06/21/2006/21/2023 CBC/C OMPLE TE BLD COUNT W/DIF F neutrophils 60.3 % 39.0-7 2.0 Not Available [facility] (Lab) [address] [place], [address], 06/21/2023 15:37:29 06/21/20 23 06/21/2023 CBC/C OMPLE TE BLD COUNT W/DIF F lymphocytes 25.6 % 16.0-4 7.0 Not Available [facility] (Lab) [address] [place], [address], 06/21/2023 15:37:29 06/21/2006/21/2023 CBC/C OMPLE TE BLD COUNT W/DIF F monocytes 11.2 % 5.0-12 .0 Not Available [facility] (Lab) [address] [place], [address], 06/21/2023 15:37:29 06/21/2006/21/2023 CBC/C OMPLE TE BLD COUNT W/DIF F eosinophils 1.7 % 1.0-7. 0 Not Available [facility] (Lab) [address] [place], [address], 06/21/2023 15:37:29 06/21/2006/21/2023 CBC/C OMPLE TE BLD COUNT W/DIF F basophils 0.9 % 0.0-2. 0 Not Available [facility] (Lab) [address] [place], [address], 06/21/2023 15:37:29 06/21/2006/21/2023 CBC/C OMPLE TE BLD COUNT W/DIF F immature granulocytes 0.3 % 0.00-0 .50 Not Available [facility] (Lab) [address] [place], [address], 06/21/2023 15:37:29 06/21/2006/21/2023 CBC/C OMPLE TE BLD COUNT W/DIF F neutrophils, absolute count 4.53 x10'3 /uL 1.5-8. 0 Not Available [facility] (Lab) [address] [place], [address], 06/21/2023 15:37:29 06/21/2006/21/2023 CBC/C OMPLE TE BLD COUNT W/DIF F lymphocytes, absolute count 1.92 x10'3 /uL 1.07-3 .43 Not Available [facility] (Lab) [address] [place], [address], 06/21/2023 15:37:29 06/21/2006/21/2023 CBC/C OMPLE TE BLD COUNT W/DIF F monocytes, absolute count 0.84 x10'3 /uL 0.29-0 .99 Not Available [facility] (Lab) [address] [place], [address], 06/21/2023 15:37:29 06/21/2006/21/2023 CBC/C OMPLE TE BLD COUNT W/DIF F eosinophils, absolute count 0.13 x10'3 /uL 0.02-0 .53 Not Available [facility] (Lab) [address] [place], [address], 06/21/2023 15:37:29 06/21/2006/21/2023 CBC/C OMPLE TE BLD COUNT W/DIF F basophils, absolute count 0.07 x10'3 /uL 0.01-0 .08 Not Available [facility] (Lab) [address] [place], [address], 06/21/2023 15:37:29 06/21/20 23 06/21/2023 CBC/C OMPLE TE BLD COUNT W/DIF F immature granulocytes ,absolute 0.02 x10'3 /uL 0.00-0 .05 Not Available [facility] (Lab) [address] [place], [address], 06/21/2023 15:37:29 06/21/20 23 06/21/2023 CBC/C OMPLE TE BLD COUNT W/DIF F nucleated red blood cells 0.0 % -0 Not Available [facility] (Lab) [address] [place], [address], 06/21/2023 15:37:29 06/21/20 23 06/21/2023 CBC/C OMPLE TE BLD COUNT W/DIF F NRBC# 0.00 x10'3 /uL Not Available [facility] (Lab) [address] [place], [address], 06/21/2023 15:37:29 06/21/2006/21/2023 LIPID PANEL cholesterol 126 mg/dL 140-19 9 low NIH KRISTINE NSUS RECOM MENDA TION FOR IVAN STERO L: ADULT CHILD LOW RISK: <200 <170 BORDE RLINE : <200- 239 ----- HIGH RISK: >240 >200 Not Available [facility] (Lab) [address] [place], [address], 06/21/2023 15:42:45 06/21/2006/21/2023 LIPID PANEL triglyceride s 201 mg/dL 0-150 high NIH KRISTINE NSUS REPOR T RECOM MENDA TION FOR TRIGL YCERI FLACO: ADULT CHILD LOW RISK: <150 ----- BODER LINE: 150-1 99 ----- HIGH RISK: >200 ----- Not Available [facility] (Lab) [address] [place], [address], 06/21/2023 15:42:45 06/21/2006/21/2023 LIPID PANEL HDL cholesterol 38 mg/dL 40- low Not Available [facility] (Lab) [address] [place], [address], 06/21/2023 15:42:45 06/21/20 23 06/21/2023 LIPID PANEL LDL cholesterol, calculated 48 mg/dL 0-130 NIH KRISTINE NSUS REPOR T RECOM MENDA TIONS FOR LDL: ADULT CHILD LOW RISK <130 <110 (OPTI MAL LDL) <100 ----- BORDE RLINE : 130-1 59 ----- HIGH RISK: >160 >130 A TRIGL YCERI DE RESUL T >400 INVAL IDATE S THE CALCU LATIO N FOR LDL FRACT IONAT ION - THE LDL RESUL T WILL NOT BE REPOR LILIBETH. Not Available [facility] (Lab) [address] [place], [address], 06/21/2023 15:42:45 06/21/2006/21/2023 COMPR EHENS VALERIE METAB OLIC PANEL sodium 140 mmol/ L 137-14 5 Not Available [facility] (Lab) [address] [place], [address], 06/21/2023 15:42:51 06/21/2006/21/2023 COMPR EHENS VALERIE METAB OLIC PANEL potassium 4.5 mmol/ L 3.5-5. 1 Not Available [facility] (Lab) [address] [place], [address], 06/21/2023 15:42:51 06/21/2006/21/2023 COMPR EHENS VALERIE METAB OLIC PANEL chloride 106 mmol/ L 98-107 Not Available [facility] (Lab) [address] [place], [address], 06/21/2023 15:42:51 06/21/2006/21/2023 COMPR EHENS VALERIE METAB OLIC PANEL carbon dioxide 26 mmol/ L 22-30 Not Available [facility] (Lab) [address] [place], [address], 06/21/2023 15:42:51 06/21/2006/21/2023 COMPR EHENS VALERIE METAB OLIC PANEL anion gap 12.5 mmol/ L 14-22 low Not Available [facility] (Lab) [address] [place], [address], 06/21/2023 15:42:51 06/21/2006/21/2023 COMPR EHENS VALERIE METAB OLIC PANEL glucose 123 mg/dL 70-99 high Not Available [facility] (Lab) [address] [place], [address], 06/21/2023 15:42:51 06/21/2006/21/2023 COMPR EHENS VALERIE METAB OLIC PANEL BUN 22 mg/dL 8-19 high Not Available [facility] (Lab) [address] [place], [address], 06/21/2023 15:42:51 06/21/2006/21/2023 COMPR EHENS VALERIE METAB OLIC PANEL creatinine 1.23 mg/dL 0.66-1 .25 Not Available [facility] (Lab) [address] [place], [address], 06/21/2023 15:42:51 06/21/2006/21/2023 COMPR EHENS VALERIE METAB OLIC PANEL GFR 57 Refer ence Range : [place] ge GFR Healt hy Adult : >60 mL/mi n/1.7 3 m2 Chron ic Kidne y Disea se: 15-60 mL/mi n/1.7 3 m2 Kidne y Failu re: <15/m L/min /1.73 m2 www.n iddk. nih.g ov The MDRD study equat ion has not been valid ated in child cherelle <18 years of age; pregn ant women ; the elder ly >85 years of age; or in some racia l or ethni c subgr oups, such as Hisok nics. Outsi de the valid ated arthur eters , estim ated GFR is less accur ate, requi ring clini zoe judgm ent on a case- by-ca se basis . Clini zoe inter preta tion for other races and ages must be made by the clini marianna. The MDRD study equat ion has not been valid ated for the evalu ation of serum creat inine relat ed to nutri patrick l statu s or medic ation usage . For perso ns <18 years of age, a pedia tric GFR calcu lator is avail able on the NKF websi te: https ://tom blackwell.o rg/pr ofess ional s/kdo qi/gf r_cal culat or Not Available [facility] (Lab) [address] [place], [address], 06/21/2023 15:42:51 06/21/2006/21/2023 COMPR EHENS VALERIE METAB OLIC PANEL alkaline phosphatase 70 U/L 38-126 Not Available [facility] (Lab) [address] [place], [address], 06/21/2023 15:42:51 06/21/20 23 06/21/2023 COMPR EHENS VALERIE METAB OLIC PANEL alanine aminotransfe rase 19 U/L 0-50 Not Available [facility] (Lab) [address] [place], [address], 06/21/2023 15:42:51 06/21/2006/21/2023 COMPR EHENS VALERIE METAB OLIC PANEL aspartate aminotransfe rase 24 U/L 15-46 Not Available [facility] (Lab) [address] [place], [address], 06/21/2023 15:42:51 06/21/2006/21/2023 COMPR EHENS VALERIE METAB OLIC PANEL bilirubin, total 0.80 mg/dL 0.20-1 .30 Not Available [facility] (Lab) [address] [place], [address], 06/21/2023 15:42:51 06/21/2006/21/2023 COMPR EHENS VALERIE METAB OLIC PANEL calcium 9.8 mg/dL 8.4-10 .2 Not Available [facility] (Lab) [address] [place], [address], 06/21/2023 15:42:51 06/21/2006/21/2023 COMPR EHENS VALERIE METAB OLIC PANEL total protein 7.2 g/dL 6.3-8. 2 Not Available [facility] (Lab) [address] [place], [address], 06/21/2023 15:42:51 10/09/20 23 06/21/2023 COMPR EHENS VALERIE METAB OLIC PANEL albumin 4.2 g/dL 3.0-4. 4 Not Available [facility] (Lab) [address] [place], [address], 06/21/2023 15:42:51 06/21/20 23 06/21/2023 COMPR EHENS VALERIE METAB OLIC PANEL globulin 3.0 g/dL 2.6-4. 2 Not Available [facility] (Lab) [address] [place], [address], 06/21/2023 15:42:51 06/21/2006/21/2023 COMPR EHENS VALERIE METAB OLIC PANEL A/G ratio 1.4 ratio 1.0-2. 0 Not Available [facility] (Lab) [address] [place], [address], 06/21/2023 15:42:51 06/21/2006/21/2023 HEMOG LOBIN A1C HA1C 6.3 % 4.0-6. 0 high Diabe diana Scree torri Crite pattie: <5.7% Consi stent with absen ce of diabe diana 5.7-6 .4% Consi stent with incre ased risk for diabe diana (pred iabet es) >OR=6 .5% Consi stent with diabe diana REFER ENCE: Diabe diana Care 2016, 39(Norman ppl.1 ):s13 -s22 Not Available [facility] (Lab) [address] [place], [address], 06/21/2023 21:08:58 12/22/1903/25/2017 colon oscop y scree torri (PROC ) No observ ation record ed. BARCODE Not Available 2022 17:12:23 12/22/19 23 03/24/2017 upper endos copy proce dure (EGD) (PROC ) No observ ation record ed. BARCODE Not Available 2022 17:12:23 Result Notes None recorded. 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 Not Available [facility] 3 07:03:38 Pure hypercholeste rolemia 125121641 Active Not Available [facility] 3 07:03:38 Chest pain 22807284 Active Not Available [facility] 3 07:03:38 Prostate specific antigen above reference range 989864673 Active 2021 Not Available [facility] 3 07:03:38 Type 2 diabetes mellitus 33801798 Active 2020 Not Available [facility] 3 07:03:38 Pain of shoulder region 39206282 Active Not Available [facility] 3 07:03:38 Epigastric pain 95408389 Active Not Available [facility] 3 07:03:38 Hyperglycemia 46525703 Active Not Available [facility] 3 07:03:38 Problem Notes None recorded. Procedures Surgical History Date Name Laterality Status Provider Name and Address Organization Details Recorded Time 02/04/20 20 Hip surgery completed Not Available [facility] 11/11/2022 04:42:31 07/15/20 16 total shoulder replacement completed Not Available [facility] 11/11/2022 04:42:31 11/28/19 14 Laparoscopic cholecystectomy completed Not Available [facility] 11/11/2022 04:42:31 Eye Surgery completed Not Available [facility] 11/11/2022 04:42:31 other completed Not Available [facility] 11/11/2022 04:42:31 Imaging Results Imaging Date Name Status [facility] Details LastModified Time 03/25/2017 colonoscopy screening (PROC) completed BARCODE Information not available 12/21/2022 17:12:23 03/24/2017 upper endoscopy procedure (EGD) (PROC) completed BARCODE Information not available 12/21/2022 17:12:23 Procedure Notes None recorded. Medical Equipment None Reported. Allergies No known drug allergies Medications Name Sig Start Date Stop Date Status Note LastModified by Organization Details LastModified Time metformin 500 mg tablet TAKE 1 TABLET BY MOUTH EVERY DAY active Not Available Not Available No t Available atorvastati n 20 mg tablet TAKE 1 TABLET BY MOUTH 3 TIMES EVERY WEEK active Not Available Not Available No t Available ofloxacin 0.3 % eye drops INSTILL 1 DROP INTO LEFT EYE FOUR TIMES DAILY 06/21 completed Not Available Not Available Not Available hydrocodone 5 mg-acetamin ophen 325 mg tablet 05/11 completed Not Available Not Available Not Available lisinopril 20 mg tablet TAKE 1 TABLET BY MOUTH EVERY DAY active Not Available Not Available No t Available ciprofloxac in 500 mg tablet 04/06 completed Not Available Not Available Not Available acyclovir 800 mg tablet Take 1 tablet 5 times a day by oral route for 10 days. active Not Available Not Available No t Available chlorpromaz ine 10 mg tablet TK 1 T PO QD active Not Available Not Available No t Available prednisolon e acetate 1 % eye drops,suspe nsion INSTILL 1 DROP INTO THE RIGHT EYE THREE TIMES A WEEK . INSTILL 1 DROP INTO LEFT EYE TWICE DAILY active Not Available Not Available No t Available DOK 100 mg capsule TK ONE C PO BID active Not Available Not Available No t Available tamsulosin 0.4 mg capsule TAKE 1 CAPSULE BY MOUTH AT BEDTIME active Not Available Not Available No t Available Kenalog 10 mg/mL suspension for injection In office injection administe red by the provider 09/02 completed ND: 0003- [id number]- 20 Not Available Not Available Not Available cephalexin 500 mg capsule 12/30 completed Not Available Not Available Not Available erythromyci n 5 mg/gram (0.5 %) eye ointment APPLY TO AFFECTED AREA BEGINNING AFTER SURGERY AT BEDTIME AND CONTINUIN G FOR 1 WEEK OR UNTIL EMPTY 06/21 completed Not Available Not Available Not Available lisinopril 10 mg tablet active Not Available Not Available Not Available diclofenac sodium 75 mg tablet,jose yed release TK 1 T PO BID 04/06 completed Not Available Not Available Not Available quinapril 20 mg tablet ONE TABLET QD active Not Available Not Available No t Available lisinopril 5 mg tablet TAKE 1 TABLET BY MOUTH EVERY DAY active Not Available Not Available No t Available methylpredn isolone 4 mg tablets in a dose pack TK UTD 05/11 completed Not Available Not Available Not Available oxycodone 5 mg tablet TK 1 T PO Q 4 H active Not Available Not Available No t Available Vigamox 0.5 % eye drops 06/23 completed Not Available Not Available Not Available rosuvastati n 20 mg tablet TK 1 TABLET 3 TIMES A WEEK 08/15 completed Not Available Not Available Not Available acetaminoph en 05/13 completed Not Available Not Available Not Available Centrum Silver 2019 active Not Available Not Available Not Avai lable lidocaine (PF) 10 mg/mL (1 %) injection solution In office injection administe red by the provider 09/02 completed [facility]: 0409- 4276- 17 Not Available Not Available Not Available Acid Controller 20 mg tablet TK 1 T PO Q 12 H 12/30 completed Not Available Not Available Not Available FeroSul 325 mg (65 mg iron) tablet TAKE ONE TABLET BY MOUTH TWICE DAILY active Not Available Not Available No t Available Prevnar 13 (PF) 0.5 mL intramuscul ar syringe ADM 0.5ML IM UTD 01/04 completed Not Available Not Available Not Available Lotemax 0.5 % eye ointment APPLY SMALL AMOUNT IN LEFT EYE AT BEDTIME 12/21 completed Not Available Not Available Not Available Eliquis 2.5 mg tablet TK 1 T PO Q 12 H active Not Available Not Available No t Available Fluvirin 7481-6724 45 mcg (15 mcg x 3)/0.5 mL intramuscul ar suspension ADM 0.5ML UTD active Not Available Not Available No t Available Fluvirin 8933-5099 45 mcg (15 mcg x 3)/0.5 mL intramuscul ar suspension INJECT 0.5 ML INTRAMUSC ULARLY DIRECTED. active Not Available Not Available No t Available Fluzone High-Dose (PF) 180 mcg/0.5 mL intramuscul ar syringe ADM 0.5ML IM UTD 12/30 completed Not Available Not Available Not Available Fluzone High-Dose 4927-9878 (PF) 180 mcg/0.5 mL intramuscul ar syringe ADM 0.5ML IM UTD 06/30 completed Not Available Not Available Not Available Shingrix (PF) 50 mcg/0.5 mL intramuscul ar suspension, kit ADM 0.5ML IM UTD 07/12 completed Not Available Not Available Not Available Fluzone High-Dose 2019-20 (PF) 180 mcg/0.5 mL intramuscul ar syringe ADM 0.5ML IM UTD 07/12 completed Not Available Not Available Not Available Fluzone High-Dose Quad 2019- (PF) 240 mcg/0.7 mL IM syringe ADM 0.7ML IM UTD 05/13 completed Not Available Not Available Not Available Vitals Date Recorded Body mass index (BMI) Body height Pain severity - 0-10 verbal numeric rating [Score] - Reported Heart rate Body temperature Body weight Systolic blood pressure Diastolic blood pressure Provider Name and Address Organization Details Last Updated DateTime 1 28.4 kg/m2 167.64 cm 0 80 /min 98.8 [degF] 46506.2 6 g 136 mm[Hg] 72 mm[Hg] Not Available [facility] 3 04:44:47 Date Recorded Body mass index (BMI) Body height Heart rate Body temperature Body weight Systolic blood pressure Diastolic blood pressure Provider Name and Address Organization Details Last Updated DateTime 2 28.4 kg/m2 167.64 cm 84 /min 98 [degF] 49064.2 6 g 122 mm[Hg] 68 mm[Hg] Not Available [facility] 3 04:44:47 Date Recorded Body mass index (BMI) Body height Heart rate Body temperature Body weight Systolic blood pressure Diastolic blood pressure Provider Name and Address Organization Details Last Updated DateTime 2 28.7 kg/m2 167.64 cm 82 /min 98.3 [degF] 95978.4 4 g 126 mm[Hg] 78 mm[Hg] Not Available [facility] 3 04:44:47 Date Recorded Body height Body mass index (BMI) Body weight Body temperature Heart rate Systolic blood pressure Diastolic blood pressure Provider Name and Address Organization Details Last Updated DateTime 3 167.64 cm 29.1 kg/m2 88051.6 3 g 98.8 [degF] 82 /min 136 mm[Hg] 80 mm[Hg] Nadia rodríguez RN [facility] [employer] [facility] 3 14:13:05 Date Recorded Body height Body mass index (BMI) Body weight Body temperature Heart rate Systolic blood pressure Diastolic blood pressure Provider Name and Address Organization Details Last Updated DateTime 3 167.64 cm 28.6 kg/m2 38547.8 5 g 99.4 [degF] 89 /min 132 mm[Hg] 78 mm[Hg] GALI Wagner [facility] [employer] [facility] 3 13:57:43 Social History Question Answer Notes LastModified by Organization Details LastModified Time Tobacco Smoking Status Never Smoker KEON Aguirre, [facility] 06/21/2023 13:48:11 Do You Have An Advance Directive? Yes POA In Chart. [id number] Information not available 11/11/2022 What Is Your Level Of Alcohol Consumption? None [id number] Information not available 11/11/2022 Do You Wear A Helmet When Biking? No Information not available 06/21/2023 Are You Blind Or Do You Have Difficulty Seeing? No [email or web address] Information not available 06/21/2023 What Is Your Level Of Caffeine Consumption? Occasional [id number] Information not available 11/11/2022 How Much Tobacco Do You Chew? None [id number] Information not available 11/11/2022 In The 14 Days Before Symptom Onset, Have You Had Close Contact With A Laboratory-confi rmed COVID-19 While That Case Was Ill? No Information not available 06/21/2023 In The 14 Days Before Symptom Onset, Have You Had Close Contact With A Person Who Is Under Investigation For COVID-19 While That Person Was Ill? No [email or web address] Information not available 06/21/2023 Are You Deaf Or Do You Have Serious Difficulty Hearing? No Information not available 06/21/2023 What Type Of Diet Are You Following? DIABETIC [id number] Information not available 11/11/2022 Which Illicit Or Recreational Drugs Have You Used? None [email or web address] Information not available 06/21/2023 Do You Or Have You Ever Used E-cigarettes Or Vape? Never Used Electronic Cigarettes [email or web address] Information not available 06/21/2023 What Is The Highest Grade Or Level Of School You Have Completed Or The Highest Degree You Have Received? [id number] [email or web address] Information not available 06/21/2023 What Is Your Occupation? Retired [email or web address] Information not available 06/21/2023 How Many Days Of Moderate To Strenuous Exercise, Like A Brisk Walk, Did You Do In The Last 7 Days? 7 [email or web address] Information not available 06/21/2023 On Those Days That You Engage In Moderate To Strenuous Exercise, How Many Minutes, On Average, Do You Exercise? 20 [email or web address] Information not available 06/21/2023 Have There Been Any Changes To Your Family Or Social Situation? No [email or web address] Information not available 06/21/2023 What Is The Fluoride Status Of Your Home? Unknown [email or web address] Information not available 06/21/2023 Are There Any Guns Present In Your Home? Yes [email or web address] Information not available 06/21/2023 Do You Use Insect Repellent Routinely? No Information not available 06/21/2023 Where Do You Live? SingleLevelHouse [email or web address] Information not available 06/21/2023 Do You Have A Medical Power Of Transport Specialist? Yes [email or web address] Information not available 06/21/2023 What Was The Date Of Your Most Recent Tobacco Screening? 06/21/2023 [email or web address] Information not available 06/21/2023 Do You Have Any Pets? No [email or web address] Information not available 06/21/2023 What Is Your Relationship Status? [id number] Information not available 11/11/2022 Do You Use Your Seat Belt Or Car Seat Routinely? Yes Information not available 06/21/2023 Do You Have Smoke And Carbon Monoxide Detectors In Your Home? Yes [email or web address] Information not available 06/21/2023 Are You Passively Exposed To Smoke? No Information not available 06/21/2023 Do You Or Have You Ever Used Smokeless Tobacco? Never Used Smokeless Tobacco [id number] Information not available 11/11/2022 Are There Any Smokers In Your House? No [email or web address] Information not available 06/21/2023 How Much Tobacco Do You Smoke? No [id number] Information not available 11/11/2022 What Types Of Sporting Activities Do You Participate In? None Information not available 06/21/2023 Do You Feel Stressed (tense, Restless, Nervous, Or Anxious, Or Unable To Sleep At Night)? [id number] Information not available 06/21/2023 Do You Use Any Illicit Or Recreational Drugs? No Information not available 06/21/2023 Do You Use Sunscreen Routinely? No [email or web address] Information not available 06/21/2023 Has Tobacco Cessation Counseling Been Provided? No N/A [email or web address] Information not available 06/21/2023 How Many Years Have You Smoked Tobacco? 0 [email or web address] Information not available 06/21/2023 Have You Recently Traveled Abroad? No [email or web address] Information not available 06/21/2023 Do You Have Any Dietary Restrictions? No Information not available 06/21/2023 Do You Or Have You Ever Used Any Other Forms Of Tobacco Or Nicotine? No [email or web address] Information not available 06/21/2023 Sex: Male Functional Status Question Answer Note LastModified by Organizat ion Details LastModified Time Do you have difficulty walking or climbing stairs? No [email or web address] Information not available 06/21/2023 Do you have transportation difficulties? No [email or web address] Information not available 06/21/2023 Are you able to walk? YESWOREST [email or web address] Information not available 06/21/2023 Do you have difficulty doing errands alone? No [email or web address] Information not available 06/21/2023 Are you able to care for yourself? Yes [email or web address] Information n ot available 06/21/2023 Do you have difficulty dressing or bathing? No [email or web address] Information not available 06/21/2023 What is your exercise level? Moderate [id number] Information not available 11/11/2022 Mental Status Question Answer Note LastModified by Organization D etails LastModified Time Do you have difficulty concentrating, remembering or making decisions? No Information no t available 06/21/2023 Family History Relationship Description Onset Age of this Age Resolved Age Notes LastModified by Organization Details LastModified Time Mother Cerebrovascu lar accident Not available 1 13:48:08 Father Heart disease [id number] Not available 11/11/2022 04:42:33 Medical History Condition Response NERVE DISEASE N BLINDNESS N RHEUMATIC FEVER N KIDNEY STONES N BLADDER PROBLEMS N MRSA N OTHER # 1 N POLIO N LUNG DISEASE/DISORDER N RADIATION / CHEMOTHERAPY N COPD N Other # 2 N BLOOD DISEASES N SURGERY N EAR OR HEARING PROBLEMS N MUMPS N SHINGLES Y BOWEL PROBLEMS N DEPRESSION (INCLUDING POST ) N STROKE/TIA N ULCERS N BENIGN PROSTATIC HYPERPLASIA N MEASLES N HYPOTENSION N MYOCARDIAL INFARCTION N OBESITY N GERD/NAUSEA N ANEURYSM N URINARY/BLADDER/KIDNEY PROBLEMS N CORONARY ARTERY DISEASE (CAD) N ADDICTION CONCERNS N ENDOMETRIOSIS N Impotence N USE OF BLOOD THINNERS N SKIN PROBLEMS N GASTROINTESTINAL DISORDER N PERIPHERAL VASCULAR DISEASE N MUSCLE,JOINT OR BONE PROBLEMS N GASTROINTESTINAL BLEEDING N BLOOD CLOTS N ASTHMA N CATARACTS N ERECTILE DYSFUNCTION N VARICOSITIES N GI PROBLEMS N Low Testosterone N INFERTILITY N AIDS/HIV N CHEMOTHERAPY / RADIATION N LIVER DISEASE N MALE HYPOGONADISM N HYPERTENSION Y Deficiency N TOURETTE'S N ANXIETY DISORDER N BLOOD TRANSFUSION N ANEMIA/BLOOD DISORDER N CHRONIC EAR INFECTIONS N BRONCHITIS N TUBERCULOSIS N GLAUCOMA N FOOT PROBLEM N DIVERTICULITIS N CHICKENPOX N SLEEP APNEA N INFECTIOUS DISEASE N HEART ARRHYTHMIA N PROSTATE N INSOMNIA N HIGH CHOLESTEROL / HYPERLIPIDEMIA Y HYPERTHYROIDISM N EYE PROBLEMS N NEUROLOGICAL PROBLEMS N EDEMA N CHRONIC PAIN SYNDROME N HYPOTHYROIDISM N CAROTID BLOCKAGE N CONSTIPATION N BACK / NECK PROBLEMS N HAVE YOU BEEN HOSPITALIZED OR SEEN IN [facility] IN THE PAST YEAR ? N ATHEROSCLEROSIS N BREAST PROBLEMS N DIALYSIS N ECZEMA N OSTEOPOROSIS N ARTHRITIS N APPENDICITIS N DIABETES, TYPE N BAD TEETH N ENT N HEARTBURN / REFLUX N AFIB N AUTISM SPECTRUM DISORDER (ASD) N HEPATITIS / LIVER DISEASE N GOUT Y SLEEP DISORDER N ALZHEIMER'S DISEASE N Brain Problems N HERPES N DEMENTIA N HEADACHES/MIGRAINES N SEIZURES/EPILEPSY N VASCULAR DISEASE N PACEMAKER N Blood Disorder N DIZZINESS N HEART DISEASE/HEART PROBLEMS N KIDNEY DISEASE N MULTIPLE SCLEROSIS N CARDIAC ARRHYTHMIA N CANCER: SPECIFY N ATRIAL FIBRILLATION N Gall Stones N PULMONARY EMBOLISM N AUTOIMMUNE DISEASE N Immunizations Vaccine Type Date Status Note Provider Nam e and Address Organization Details Recorded Time COVID-19, mRNA, LNP-S, PF, 30 mcg/0.3 mL dose 1 completed Not Available [facility] 06/30/2023 07:03:38 COVID-19, mRNA, LNP-S, PF, 30 mcg/0.3 mL dose 1 completed Not Available [facility] 06/30/2023 07:03:38 Influenza, high-dose, quadrivalent, PF 0 completed Not Available [facility] 06/30/2023 07:03:38 Influenza, high-dose, trivalent, PF 9 completed Not Available [facility] 06/30/2023 07:03:39 zoster, unspecified formulation 9 completed Not Available [facility] 06/30/2023 07:03:38 zoster recombinant 9 completed Not Available [facility] 06/30/2023 07:03:38 Pneumococcal conjugate PCV 13 8 completed Not Available [facility] 06/30/2023 07:03:39 influenza, unspecified formulation 8 completed Not Available [facility] 06/30/2023 07:03:39 Influenza, high-dose, trivalent, PF 7 completed Not Available [facility] 06/30/2023 07:03:39 Influenza, high-dose, quadrivalent, PF 2 completed Not Available [facility] 06/30/2023 07:03:38 COVID-19, mRNA, LNP-S, PF, 30 mcg/0.3 mL dose 2 completed Not Available [facility] 06/30/2023 07:03:39 COVID-19, mRNA, LNP-S, PF, 30 mcg/0.3 mL dose 2 completed Not Available [facility] 06/30/2023 07:03:38 COVID-19, mRNA, LNP-S, PF, 30 mcg/0.3 mL dose 1 completed Not Available [facility] 06/30/2023 07:03:39 Influenza, high-dose, quadrivalent, PF 1 completed Not Available [facility] 06/30/2023 07:03:38 Pneumococcal conjugate PCV 13 5 completed Not Available [facility] 06/30/2023 07:03:39 Influenza, high-dose, trivalent, PF 6 completed Not Available [facility] 06/30/2023 07:03:39 Influenza, split virus, quadrivalent, PF 5 completed Not Available [facility] 06/30/2023 07:03:39 Past Encounters Encounter ID Performer Location Encounter Start Date Encounter Closed Date Diagnosis/Indication Diagnosis SNOMED-CT Code Diagnosis ICD10 Code Diagnosis Note [id number] Marlyn Ferraro MD [facility] [place] [facility] Internal Med [facility] [address] [address] 12/30/2020 00:00:00 01/04/2021 22:39:46 [id number] Marlyn Ferraro MD [facility] [place] [facility] Internal Med [facility] [address] [address] 06/30/2021 00:00:00 06/30/2021 22:19:29 [id number] Marlyn Ferraro MD [facility] [place] Internal Med [facility] [address] [address] 12/29/2021 00:00:00 12/29/2021 21:01:21 [id number] Marlyn Ferraro MD [facility] [place] Internal Med [facility] [address] [address] 06/29/2022 00:00:00 06/29/2022 15:29:45 [id number] Marlyn Ferraro MD [facility] [place] Internal Med [facility] [address] [address] 12/21/2022 13:45:01 12/21/2022 14:47:32 Benign essential hypertension 3513895 I10 Prostate s pecific antigen above reference range 097794740 R97.20 Type 2 loire betes mellitus 67099031 E11.9 [id number] Marlyn Ferraro MD [facility] [place] Internal Med [facility] [address] [address] 06/21/2023 13:47:06 06/21/2023 14:27:16 Type 2 diabetes mellitus 10391221 E11.9 Benign ess ential hypertension 8013010 I10 Pure hypercholesterolemia 187372435 E78.00 Health Concerns Section Related Observation LastModified by Organization Detai ls LastModified Time None Recorded Concern Status LastModified by Organization Details LastModified Time None Recorded Advance Directives Directive Y: POA in chart. Payers Encounter Date Sequence Insurance Name Policy Number Policy Che Covered Member ID Che Member ID Guarantor Name 12/21/2022 1 [place] Priscilla P Crader [id number] Priscilla P Crader 12/21/2022 2 [employer] (MEDICARE SUPPLEMENT) PLAN F Priscilla P Crader [id number] Priscilla P Crader 06/21/2023 1 [place] Priscilla P Crader [id number] Priscilla P Crader 06/21/2023 2 [employer] (MEDICARE SUPPLEMENT) PLAN F Priscilla P Crader [id number] Priscilla P Crader Notes Date Note Type Note Provider Name and Address Organization Details Recorded Time 3 text/html Hypertension no chest pain or shortness of breathDiabetes no polyphagia no polydipsiaDyslipidemia does try to follow low-fat dietHistory of peptic ulcer disease has not had anything to suggest recurrenceHistory of elevated PSA needs to be recheck Marlyn Ferraro MD [address], [place], [address], [employer] 12/21/2022 14:47:40 3 text/html Hypertension no chest pain or shortness of breathDiabetes no polyphagia no polydipsiaDyslipidemia does try to follow low-fat dietHistory of peptic ulcer disease has not had anything to suggest recurrenceHistory of elevated PSA needs to be recheck has followed with urology Marlyn Ferraro MD [address], [place], [address], [employer] 06/21/2023 22:42:05
[2025-01-16 10:50] LABS: Iron 122 ug/dL (49-181)
[2025-01-16 11:00] LABS: Percent Iron Saturation 38 % (20-50)
[2025-01-16 12:04] LABS: Folic Acid > 20.0 ng/mL (2.76->20)
== END 2025-01-16 09:36 | disposition home or self-care (01) ==
LOC: ANHLAB 09:36
PROVIDERS: PCP Internal Medicine; Visit Provider Internal Medicine Hematology & Oncology
DX: D64.9 Anemia, unspecified (principal)
CPT/HCPCS: 36415; 82607; 82728; 82746; 83540; 83550; 85027

== ENCOUNTER 2025-03-19 14:24 | Inpatient (IN) | payer MEDICARE, SELFPAY ==
[2025-03-19] VITALS (22 sets, daily range): BP systolic 106–144; BP diastolic 59–78; PULSE 62–80; RESP 15–21; TEMP 36.3–36.6; O2SAT 96–100; BMI 27.6
--- NOTE | 2025-03-19 | ECHO_ITS ---
Patient Info Name: Priscilla Dennis Age: 80 years : 1945 Gender: Male Ht: 68 in Wt: 182 lbs BSA: 2.01 m2 HR: 73 bpm BP: 111 / 66 mmHg Technical Quality: Good Exam Date: 03/19/2025 5:12 PM Patient Status: I Admit Date: 03/19/2025 Exam Type: CA echo doppler color flow Complete two-dimensional, color flow and Doppler transthoracic echocardiogram is performed. Staff Referring Physician: Viraj Dash [employer]: Nyasia Villarreal Attending Provider: Diogo Rocha MD Summary 1. Complete two-dimensional, color flow and Doppler transthoracic echocardiogram is performed. 2. Left ventricular systolic function is normal, estimated at 65-70. 3. There is mildly increased left ventricular wall thickness. 4. The left ventricular diastolic function is grade I diastolic dysfunction. 5. There is mild mitral valve regurgitation. 6. There is mild tricuspid valve regurgitation. 7. No pulmonary hypertension, estimated pulmonary arterial systolic pressure is 33 mmHg. 8. There is mild pulmonic regurgitation. Left Ventricle Left ventricular chamber dimension is normal. Left ventricular systolic function is normal, estimated at 65-70. There is mildly increased left ventricular wall thickness. Left ventricular septal wall motion is normal. The left ventricular diastolic function is grade I diastolic dysfunction. Right Ventricle Right ventricular chamber dimension is normal. Right ventricular systolic function is normal. Left Atria Left atrial chamber dimension is normal. Right Atria Right atrial chamber dimension is normal. Aortic Valve The aortic valve is trileaflet. There is no aortic valve sclerosis. There is no aortic valve stenosis. There is mild to moderate aortic valve regurgitation. There is mild aortic valve calcification. Pulmonic Valve The pulmonic valve is normal. There is no pulmonic valve stenosis. There is mild pulmonic regurgitation. Mitral Valve The mitral valve has normal leaflets. There is no mitral valve stenosis. There is mild mitral valve regurgitation. Tricuspid Valve The tricuspid valve leaflets are normal. There is no significant tricuspid valve stenosis. There is mild tricuspid valve regurgitation. No pulmonary hypertension, estimated pulmonary arterial systolic pressure is 33 mmHg. Pericardium/Pleural The pericardium appears normal. There is no pericardial effusion. Inferior Vena Cava Normal inferior vena cava with >50% collapse upon inspiration consistent with normal right atrial pressure, 5 mmHg. Aorta The aortic root size at the sinus of Valsalva is normal. The prox ascending aorta size is normal. Left Ventricular Outflow Tract Name Value Normal LVOT 2D LVOT Diameter 2.0 cm LVOT Doppler LVOT Peak Velocity 113 cm/s LVOT Peak Gradient 5 mmHg LVOT Mean Gradient 3 mmHg LVOT VTI 23 cm LVOT VTI/AV VTI Ratio 0.5 LVOT Stroke Volume 76 ml LVOT CO 5.0 l/min LVOT CI 2.5 l/min/m2 Pulmonic Valve Name Value Normal PV Doppler PV Peak Velocity 103 cm/s PV Peak Gradient 4 mmHg Mitral Valve Name Value Normal MV Diastolic Function MV E Peak Velocity 79 cm/s MV A Peak Velocity 100 cm/s MV E/A 0.8 MV Decel Time (PW) 280 ms MV Annular TDI MV E/e' (Septal) 9.5 MV E/e' (Lateral) 7.2 MV E/e' (Average) 8.4 Tricuspid Valve Name Value Normal TV Regurgitation Doppler TR Peak Velocity 264 cm/s TR Peak Gradient 28 mmHg Estimated PAP/RSVP RA Pressure 5 mmHg <=5 PA Systolic Pressure 33 mmHg <36 RV Systolic Pressure 33 mmHg <36 TV Annular TDI TV Lateral Edie s' Velocity 11.8 cm/s >=9.5 Aortic Valve Name Value Normal AV Doppler AV Peak Velocity 213 cm/s AV Peak Gradient 18 mmHg AV Mean Gradient 10 mmHg AV VTI 43 cm AV Area (Cont Eq VTI) 1.8 cm2 >=3.0 AV Area (Cont Eq Vignesh) 1.7 cm2 AV DI (Vignesh) 0.53 AV Regurgitation 2D LVOT Area 3.2 cm2 Ventricles Name Value Normal LV Dimensions 2D/MM IVS Diastolic Thickness (2D) 1.0 cm 0.6-1.0 LVID Diastole (2D) 4.5 cm 4.2-5.8 LVIW Diastolic Thickness (2D) 1.0 cm 0.6-1.0 LVID Systole (2D) 2.4 cm 2.5-4.0 LVOT Diameter 2.0 cm LV Mass (2D Cubed) 148.18 g 88.00-224.00 LV Mass Index (2D Cubed) 74 g/m2 49-115 Relative Wall Thickness (2D) 0.45 <=0.42 LV Fractional Shortening/Ejection Fraction 2D/MM LV Fractional Shortening (2D) 47 % 25-43 LV EF (2D Teichholz) 79 % LV Diastolic Volume (4C MOD) 76 ml LV EF (4C MOD) 69 % LV Diastolic Volume (2C MOD) 75 ml LV EF (2C MOD) 68 % LV Diastolic Volume (BP MOD) 76 ml 62-150 LV Diastolic Volume Index (BP MOD) 38 ml/m2 34-74 LV Systolic Volume (BP MOD) 24 ml 21-61 LV Systolic Volume Index (BP MOD) 12 ml/m2 11-31 LV EF (BP MOD) 69 % 52-72 LV Diastolic Length (4C) 7.7 cm LV Systolic Length (4C) 5.9 cm LV Stroke Volume (4C MOD) 52 ml Atria Name Value Normal LA Dimensions LA Volume (4C A-L) 40 ml LA Volume (BP A-L) 33 ml RA Dimensions RA Systolic Major Renault Length (4C) 5.1 cm 2.1-2.7 RA Area (4C) 11.5 cm2 <=18.0 Report Signatures
--- OUTSIDE RECORDS SUMMARY | 2025-03-19 14:29 | XMS_ITS | Clinical Summary ---
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 Phone Chad Ferraro MD Primary Care Provider [phone] Allergies No known active allergies Medications tamsulosin [...] Encounters Date Type Department Care Team Description 02/27/2025 External Device Data [facility] ABSTRACTION Provider, Abstract 02/06/2025 External Device Data [facility] ABSTRACTION Provider, Abstract 02/06/2025 External Device Data [facility] ABSTRACTION Provider, Abstract 01/31/2025 External Device Data [facility] ABSTRACTION Provider, Abstract 01/31/2025 External Device Data [facility] ABSTRACTION Provider, Abstract 01/26/2025 11:45 AM CDT Office Visit [facility] - [place] [address] [place] [phone] Bryce Shaw MD Chronic anemia (Primary Dx) 01/16/2025 External Device Data [facility] ABSTRACTION Provider, Abstract 01/16/2025 Orders Only [facility] [address] [place] [phone] Bryce Shaw MD from Last 3 Months Family History Medical [...] Sign Reading Time Taken Comments Blood Pressure 138/89 01/26/2025 11:32 AM CDT Pulse 94 01/26/2025 11:32 AM CDT Temperature 36.7 C (98 F) 01/26/2025 11:32 AM CDT Respiratory Rate 15 01/26/2025 11:32 AM CDT Oxygen Saturation 95% 01/26/2025 11:32 AM CDT Inhaled Oxygen Concentration - - Weight 77.7 kg (171 lb 6.4 oz) 01/26/2025 11:32 AM CDT Height 172.7 cm (5' 8) 01/24/2024 2:27 PM CDT Body Mass Index 26.06 01/24/2024 2:27 PM CDT Plan of Treatment Upcoming Encounters Date Type Department Care Team (Late st Contact Info) Description 10/02/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 Office Visit [facility] [address] [place] [phone] Bryce Shaw MD [address] [facility] [address] [place] [address] Health Maintenance Due Date Last Done Comments DIABETES ANNUAL FOOT EXAM 1963 DIABETES ANNUAL RETINAL EXAM 1963 DIABETES MICROALBUMIN ANNUAL SCREEN 1963 LDL CHOLESTEROL ANNUAL 1963 DTAP/TDAP/TD VACCINES (1 - Tdap) 1964 PNEUMOCOCCAL VACCINE 50+ YEA RS (2 of 2 - PPSV23) 09/05/2018 07/11/2018, 06/18/2015 ZOSTER VACCINE (2 of 2) 02/17/2019 12/23/2018 RSV VACCINE (60+ or ) (1 - 1-dose 75+ series) 2020 DIABETES HBA1C Q 6 MONTHS 12/21/2023 06/21/2023 INFLUENZA VACCINE (#1) 2025 2, 05/14/2021, 05/06/2020, Additional history exists Procedures Procedure Name Priority Date/Time Associated Diagnosis Comments IRON PANEL Routine 01/16/2025 4:13 PM CDT from Last 3 Months Results * IRON PANEL (01/16/2025 4:13 PM CDT) Blood Bryce Shaw MD CHEMISTRY ORDERABLES Final Resu lt from Last 3 Months Insurance MEDICARE PART A AND B [employer] Care Teams Wastewater Treatment Plant Operator Relationship Specialty [place] [address] [place] [phone] PCP - General Internal Medicine 11/23/23
--- OUTSIDE RECORDS SUMMARY | 2025-03-19 14:29 | XMS_ITS | Data Portability ---
Author Organization [place] - [facility], Main Office Address [address] [place] [address] Care Team Providers Care Video Game Producer Name Role Phone MARLYN FERRARO Primary Care Provider [phone] MARLYN FERRARO Referring Provider [phone] Assessment Encounter Date Assessment Date Assessment LastModified by Organization Details LastModified Time 12/21/2022 12/21/2022 Hypertension hyperlipidemia diabetes discussed will see if he is due for colonoscopy blood work been ordered continue current therapy follow-up in 6 months. Not available 12/21/2022 14:47:21 06/21/2023 06/21/2023 Will continue current therapy diagnosis in assessment and plan have been discussed follow-up in 6 months [email or web address] Not available 06/21/2023 22:41:40 Plan of Treatment Reminders Order Date Submit Date Provider Last Modified By Organization Details Last Modified Time Details Appointments None recorded . Lab glycohem oglobin, total, blood 06/21/20 [facility] (Lab), [address] [place], [address], 21:08:58 CBC w/ auto diff 06/21/20 [facility] (Lab), [address] [place], [address], 15:37:29 lipid panel, serum 06/21/20 [facility] (Lab), [address] [place], [address], 3 15:42:45 CMP, serum or plasma 023 06/21/20 23 [facility] (Lab), [address] [place], [address], 3 15:42:51 PSA, total, serum or plasma 023 12/22/19 23 [facility] (Lab), [address] [place], [address], 3 16:20:55 glycohem oglobin, total, blood 023 12/22/19 [facility] (Lab), [address] [place], [address], 3 20:11:21 CBC w/ auto diff 023 12/22/[address] (Lab), [address] [place], [address], 3 16:05:50 CMP, serum or plasma 023 12/22/[address] (Lab), [address] [place], [address], 3 16:05:50 lipid panel, serum 023 12/22/[address] (Lab), [address] [place], [address], 3 16:05:50 Referral None recorded . Procedures None recorded . Surgeries None recorded . Imaging None recorded . Medication Orders None recorded . Patient TargetsNo targets recorded. Patient InstructionsNo instructions recorded. Reason for Referral None Reported. Results Created Date Observation Date Name Description Value Unit Range Abnormal Flag Note LastModifiedBy Organization Detail LastModifiedTime 06/30/2006/30/2021 MICRO ALBUM N RNDM W/CRE AT RATIO ur creat 108.45 mg/dL REFER ENCE RANGE NOT ESTAB LISHE D FOR RANDO M URINE CREAT ININE Not Available [facility] (Lab) [address] [place], [address], 06/30/2021 18:30:04 06/30/20 21 06/30/2021 MICRO ALBUM N RNDM W/CRE AT RATIO microalb 36.4 mg/L 0.0-16 .6 high Not Available [facility] (Lab) [address] [place], [address], 06/30/2021 18:30:04 06/30/20 21 06/30/2021 MICRO ALBUM [...] ENCE: DIABE DIANA CARE, VOL. 26: S94-S 2002 Not Available [facility] (Lab) [address] [place], [address], 06/30/2021 18:30:04 06/30/20 21 06/30/2021 HEMOG LOBIN A1C HA1C 6.1 % 4.0-6. 0 high Diabe diana Scree torri Crite pattie: <5.7% Consi stent with absen ce of diabe daina 5.7-6 .4% Consi stent with incre ased risk for diabe diana (pred iabet es) >OR=6 .5% Consi stent with diabe diana REFER ENCE: Diabe diana Care 2016, 39(Norman ppl.1 ):s13 -s22 Not Available [facility] (Lab) [address] [place], [address], 06/30/2021 22:00:43 06/30/20 21 06/30/2021 LIPID PANEL cholesterol 141 mg/dL 140-19 9 NIH KRISTINE NSUS RECOM MENDA TION FOR IVAN STERO L: ADULT CHILD LOW RISK: <200 <170 BORDE RLINE : <200- 239 ----- HIGH RISK: >240 >200 Not Available [facility] (Lab) [address] [place], [address], 06/30/2021 18:30:21 06/30/20 21 06/30/2021 LIPID PANEL triglyceride s 189 mg/dL 0-150 high NIH KRISTINE NSUS REPOR T RECOM MENDA TION FOR TRIGL YCERI FLACO: ADULT CHILD LOW RISK: <150 ----- BODER LINE: 150-1 99 ----- HIGH RISK: >200 ----- Not Available [facility] (Lab) [address] [place], [address], 06/30/2021 18:30:21 06/30/20 21 06/30/2021 LIPID PANEL HDL cholesterol 42 mg/dL 40- Not Available [facility] (Lab) [address] [place], [address], 06/30/2021 18:30:21 06/30/20 21 06/30/2021 LIPID PANEL LDL cholesterol, calculated 61 mg/dL [...] WILL NOT BE REPOR LILIBETH. Not Available [facility] (Lab) [address] [place], [address], 06/30/2021 18:30:21 06/30/20 21 06/30/2021 COMPR EHENS VALERIE METAB OLIC PANEL sodium 142 mmol/ L 137-14 5 Not Available [facility] (Lab) [address] [place], [address], 06/30/2021 18:30:19 06/30/20 21 06/30/2021 COMPR EHENS VALERIE METAB OLIC PANEL potassium 4.2 mmol/ L 3.5-5. 1 Not Available [facility] (Lab) [address] [place], [address], 06/30/2021 18:30:19 06/30/20 21 06/30/2021 COMPR EHENS VALERIE METAB OLIC PANEL chloride 104 mmol/ L 98-107 Not Available [facility] (Lab) [address] [place], [address], 06/30/2021 18:30:19 06/30/20 21 06/30/2021 COMPR EHENS VALERIE METAB OLIC PANEL carbon dioxide 26 mmol/ L 22-30 Not Available [facility] (Lab) [address] [place], [address], 06/30/2021 18:30:19 06/30/20 21 06/30/2021 COMPR EHENS VALERIE METAB OLIC PANEL agap 16.2 mmol/ L 14-22 Not Available [facility] (Lab) [address] [place], [address], 06/30/2021 18:30:19 06/30/20 21 06/30/2021 COMPR EHENS VALERIE METAB OLIC PANEL glucose 111 mg/dL 70-99 high Not Available [facility] (Lab) [address] [place], [address], 06/30/2021 18:30:19 06/30/20 21 06/30/2021 COMPR EHENS VALERIE METAB OLIC PANEL BUN 25 mg/dL 8-19 high Not Available [facility] (Lab) [address] [place], [address], 06/30/2021 18:30:19 06/30/20 21 06/30/2021 COMPR EHENS VALERIE METAB OLIC PANEL creatinine 1.25 mg/dL 0.66-1 .25 Not Available [facility] (Lab) [address] [place], [address], 06/30/2021 18:30:19 06/30/20 21 06/30/2021 COMPR EHENS VALERIE METAB OLIC PANEL GFR 56 Refer ence Range : [place] GFR Healt hy Adult : >60 [...] lator can be locat ed on the [facility] websi te: [email or web address] :[email or web address] sukhjinder/pr ofess ional s/kdo qi/gf r_cal culat or Not Available [facility] (Lab) [address] [place], [address], 06/30/2021 18:30:19 06/30/20 21 06/30/2021 COMPR EHENS VALERIE METAB OLIC PANEL alkaline phosphatase 83 U/L 38-126 Not Available [facility] (Lab) [address] [place], [address], 06/30/2021 18:30:19 06/30/20 21 06/30/2021 COMPR EHENS VALERIE METAB OLIC PANEL alanine aminotransfe rase 20 U/L 0-50 Not Available [facility] (Lab) [address] [facility] [place], [address], 06/30/2021 18:30:19 06/30/20 21 06/30/2021 COMPR EHENS VALERIE METAB OLIC PANEL aspartate aminotransfe rase 33 U/L 15-46 Not Available [facility] (Lab) [address] [place], [address], 06/30/2021 18:30:19 06/30/20 21 06/30/2021 COMPR EHENS VALERIE METAB OLIC PANEL bilirubin, total 1.00 mg/dL 0.20-1 .30 Not Available [facility] (Lab) [address] [place], [address], 06/30/2021 18:30:19 06/30/20 21 06/30/2021 COMPR EHENS VALERIE METAB OLIC PANEL calcium 10.3 mg/dL 8.4-10 .2 high Not Available [facility] (Lab) [address] [place], [address], 06/30/2021 18:30:19 06/30/20 21 06/30/2021 COMPR EHENS VALERIE METAB OLIC PANEL total protein 7.9 g/dL 6.3-8. 2 Not Available [facility] (Lab) [address] [place], [address], 06/30/2021 18:30:19 06/30/20 21 06/30/2021 COMPR EHENS VALERIE METAB OLIC PANEL albumin 4.6 g/dL 3.0-4. 4 high Not Available [facility] (Lab) [address] [place], [address], 06/30/2021 18:30:19 06/30/20 21 06/30/2021 COMPR EHENS VALERIE METAB OLIC PANEL globulin 3.3 g/dL 2.6-4. 2 Not Available [facility] (Lab) [address] [place], [address], 06/30/2021 18:30:19 06/30/20 21 06/30/2021 COMPR EHENS VALERIE METAB OLIC PANEL A/G ratio 1.4 ratio 1.0-2. 0 Not Available [facility] (Lab) [address] [place], [address], 06/30/2021 18:30:19 12/30/19 22 12/30/2021 HEMOG LOBIN A1C HA1C 5.9 % 4.0-6. 0 Diabe diana Scree torri Crite pattie: <5.7% Consi stent with absen ce of diabe diana 5.7-6 .4% Consi stent with incre ased risk for diabe diana (pred iabet es) >OR=6 .5% Consi stent with diabe diana REFER ENCE: Diabe diana Care 2016, 39(Norman ppl.1 ):s13 -s22 Not Available [facility] (Lab) [address] [place], [address], 12/30/2021 12:32:36 12/30/19 22 12/29/2021 PSA SCREE N PSA medicare screen 7.07 NG/mL 0.00-4 .00 high Not Available [facility] (Lab) [address] [place], [address], 12/29/2021 17:31:13 12/30/19 22 12/29/2021 COMPR EHENS VALERIE METAB OLIC PANEL sodium 140 mmol/ L 137-14 5 Not Available [facility] (Lab) [address] [place], [address], 12/29/2021 17:07:19 12/30/19 22 12/29/2021 COMPR EHENS VALERIE METAB OLIC PANEL potassium 4.9 mmol/ L 3.5-5. 1 Not Available [facility] (Lab) [address] [place], [address], 12/29/2021 17:07:19 12/30/19 22 12/29/2021 COMPR EHENS VALERIE METAB OLIC PANEL chloride 104 mmol/ L 98-107 Not Available [facility] (Lab) [address] [facility] [place], [address], 12/29/2021 17:07:19 12/30/19 22 12/29/2021 COMPR EHENS VALERIE METAB OLIC PANEL carbon dioxide 23 mmol/ L 22-30 Not Available [facility] (Lab) [address] [place], [address], 12/29/2021 17:07:19 12/30/19 22 12/29/2021 COMPR EHENS VALERIE METAB OLIC PANEL anion gap 17.9 mmol/ L 14-22 Not Available [facility] (Lab) [address] [place], [address], 12/29/2021 17:07:19 12/30/19 22 12/29/2021 COMPR EHENS VALERIE METAB OLIC PANEL glucose 119 mg/dL 70-99 high Not Available [facility] (Lab) [address] [place], [address], 12/29/2021 17:07:19 12/30/19 22 12/29/2021 COMPR EHENS VALERIE METAB OLIC PANEL BUN 25 mg/dL 8-19 high Not Available [facility] (Lab) [address] [place], [address], 12/29/2021 17:07:19 12/30/19 22 12/29/2021 COMPR EHENS VALERIE METAB OLIC PANEL creatinine 1.24 mg/dL 0.66-1 .25 Not Available [facility] (Lab) [address] [place], [address], 12/29/2021 17:07:19 12/30/19 22 12/29/2021 COMPR EHENS VALERIE METAB OLIC PANEL GFR 57 Refer ence Range : [place] ge GFR Healt hy Adult : >60 [...] calcu lator is avail able on the [facility] websi te: https :[email or web address] [email or web address] [email or web address].o rg/pr ofess ional s/kdo qi/gf r_cal culat or Not Available [facility] (Lab) [address] [place], [address], 12/29/2021 17:07:19 12/30/19 22 12/29/2021 COMPR EHENS VALERIE METAB OLIC PANEL alkaline phosphatase 93 U/L 38-126 Not Available [facility] (Lab) [address] [facility] [place], [address], 12/29/2021 17:07:19 12/30/19 22 12/29/2021 COMPR EHENS VALERIE METAB OLIC PANEL alanine aminotransfe rase 16 U/L 0-50 Not Available [facility] (Lab) [address] [facility] [place], [address], 12/29/2021 17:07:19 12/30/19 22 12/29/2021 COMPR EHENS VALERIE METAB OLIC PANEL aspartate aminotransfe rase 27 U/L 15-46 Not Available [facility] (Lab) [address] [place], [address], 12/29/2021 17:07:19 12/30/19 22 12/29/2021 COMPR EHENS VALERIE METAB OLIC PANEL bilirubin, total 1.10 mg/dL 0.20-1 .30 Not Available [facility] (Lab) [address] [place], [address], 12/29/2021 17:07:19 12/30/19 22 12/29/2021 COMPR EHENS VALERIE METAB OLIC PANEL calcium 10.3 mg/dL 8.4-10 .2 high Not Available [facility] (Lab) [address] [place], [address], 12/29/2021 17:07:19 12/30/19 22 12/29/2021 COMPR EHENS VALERIE METAB OLIC PANEL total protein 8.2 g/dL 6.3-8. 2 Not Available [facility] (Lab) [address] [place], [address], 12/29/2021 17:07:19 12/30/19 22 12/29/2021 COMPR EHENS VALERIE METAB OLIC PANEL albumin 4.7 g/dL 3.0-4. 4 high Not Available [facility] (Lab) [address] [place], [address], 12/29/2021 17:07:19 12/30/19 22 12/29/2021 COMPR EHENS VALERIE METAB OLIC PANEL globulin 3.5 g/dL 2.6-4. 2 Not Available [facility] (Lab) [address] [place], [address], 12/29/2021 17:07:19 12/30/19 22 12/29/2021 COMPR EHENS VALERIE METAB OLIC PANEL A/G ratio 1.3 ratio 1.0-2. 0 Not Available [facility] (Lab) [address] [place], [address], 12/29/2021 17:07:19 12/30/19 22 12/29/2021 LIPID PANEL cholesterol 151 mg/dL 140-19 9 NIH KRISTINE NSUS RECOM MENDA TION FOR IVAN STERO L: ADULT CHILD LOW RISK: <200 <170 BORDE RLINE : <200- 239 ----- HIGH RISK: >240 >200 Not Available [facility] (Lab) [address] [place], [address], 12/29/2021 17:07:15 12/30/19 22 12/29/2021 LIPID PANEL triglyceride s 179 mg/dL 0-150 high NIH KRISTINE NSUS REPOR T RECOM MENDA TION FOR TRIGL YCERI FLACO: ADULT CHILD LOW RISK: <150 ----- BODER LINE: 150-1 99 ----- HIGH RISK: >200 ----- Not Available [facility] (Lab) [address] [place], [address], 12/29/2021 17:07:15 12/30/1912/29/2021 LIPID PANEL HDL cholesterol 45 mg/dL 40- Not Available [facility] (Lab) [address] [place], [address], 12/29/2021 17:07:15 12/30/19 22 12/29/2021 LIPID PANEL [...] WILL NOT BE REPOR LILIBETH. Not Available [facility] (Lab) [address] [place], [address], 12/29/2021 17:07:15 12/30/19 22 12/29/2021 CBC/C OMPLE TE BLD COUNT W/DIF F white blood cells 11.1 x10'3 /uL 4.2-10 .8 high Not Available [facility] (Lab) [address] [place], [address], 12/29/2021 16:22:54 12/30/19 22 12/29/2021 CBC/C OMPLE TE BLD COUNT W/DIF F red blood cells 5.11 x10'6 /uL 4.10-5 .80 Not Available [facility] (Lab) [address] [place], [address], 12/29/2021 16:22:54 12/30/19 22 12/29/2021 CBC/C OMPLE TE BLD COUNT W/DIF F hemoglobin 14.5 g/dL 13.2-1 7.0 Not Available [facility] (Lab) [address] [place], [address], 12/29/2021 16:22:54 12/30/19 22 12/29/2021 CBC/C OMPLE TE BLD COUNT W/DIF F hematocrit 47.0 % 39.3-5 0.0 Not Available [facility] (Lab) [address] [place], [address], 12/29/2021 16:22:54 12/30/19 22 12/29/2021 CBC/C OMPLE TE BLD COUNT W/DIF F mean red cell volume 92.0 fL 80.0-9 7.0 Not Available [facility] (Lab) [address] [place], [address], 12/29/2021 16:22:54 12/30/19 22 12/29/2021 CBC/C OMPLE TE BLD COUNT W/DIF F mean red cell hemoglobin 28.4 pg 27.0-3 3.0 Not Available [facility] (Lab) [address] [facility] [place], [address], 12/29/2021 16:22:54 12/30/19 22 12/29/2021 CBC/C OMPLE TE BLD COUNT W/DIF F mean RBC HGB concentratio n 30.9 g/dL 31.0-3 6.0 low Not Available [facility] (Lab) [address] [place], [address], 12/29/2021 16:22:54 12/30/19 22 12/29/2021 CBC/C OMPLE TE BLD COUNT W/DIF F red cell distribution width 15.3 % 11.8-1 5.5 Not Available [facility] (Lab) [address] [place], [address], 12/29/2021 16:22:54 12/30/19 22 12/29/2021 CBC/C OMPLE TE BLD COUNT W/DIF F platelets 302 x10'3 /uL 150-40 0 Not Available [facility] (Lab) [address] [place], [address], 12/29/2021 16:22:54 12/30/19 22 12/29/2021 CBC/C OMPLE TE BLD COUNT W/DIF F mean platelet volume 10.8 fL 9.0-12 .4 Not Available [facility] (Lab) [address] [place], [address], 12/29/2021 16:22:54 12/30/19 22 12/29/2021 CBC/C OMPLE TE BLD COUNT W/DIF F neutrophils 70.9 % 39.0-7 2.0 Not Available [facility] (Lab) [address] [place], [address], 12/29/2021 16:22:54 12/30/19 22 12/29/2021 CBC/C OMPLE TE BLD COUNT W/DIF F lymphocytes 17.0 % 16.0-4 7.0 Not Available [facility] (Lab) [address] [place], [address], 12/29/2021 16:22:54 12/30/19 22 12/29/2021 CBC/C OMPLE TE BLD COUNT W/DIF F monocytes 10.6 % 5.0-12 .0 Not Available [facility] (Lab) [address] [place], [address], 12/29/2021 16:22:54 12/30/19 22 12/29/2021 CBC/C OMPLE TE BLD COUNT W/DIF F eosinophils 0.5 % 1.0-7. 0 low Not Available [facility] (Lab) [address] [place], [address], 12/29/2021 16:22:54 12/30/19 22 12/29/2021 CBC/C OMPLE TE BLD COUNT W/DIF F basophils 0.6 % 0.0-2. 0 Not Available [facility] (Lab) [address] [place], [address], 12/29/2021 16:22:54 12/30/19 22 12/29/2021 CBC/C OMPLE TE BLD COUNT W/DIF F immature granulocytes 0.4 % 0.00-0 .50 Not Available [facility] (Lab) [address] [place], [address], 12/29/2021 16:22:54 12/30/19 22 12/29/2021 CBC/C OMPLE TE BLD COUNT W/DIF F neutrophils, absolute count 7.88 x10'3 /uL 1.5-8. 0 Not Available [facility] (Lab) [address] [place], [address], 12/29/2021 16:22:54 12/30/19 22 12/29/2021 CBC/C OMPLE TE BLD COUNT W/DIF F lymphocytes, absolute count 1.89 x10'3 /uL 1.07-3 .43 Not Available [facility] (Lab) [address] [place], [address], 12/29/2021 16:22:54 12/30/19 22 12/29/2021 CBC/C OMPLE TE BLD COUNT W/DIF F monocytes, absolute count 1.18 x10'3 /uL 0.29-0 .99 high Not Available [facility] (Lab) [address] [place], [address], 12/29/2021 16:22:54 12/30/19 22 12/29/2021 CBC/C OMPLE TE BLD COUNT W/DIF F eosinophils, absolute count 0.06 x10'3 /uL 0.02-0 .53 Not Available [facility] (Lab) [address] [place], [address], 12/29/2021 16:22:54 12/30/19 22 12/29/2021 CBC/C OMPLE TE BLD COUNT W/DIF F basophils, absolute count 0.07 x10'3 /uL 0.01-0 .08 Not Available [facility] (Lab) [address] [place], [address], 12/29/2021 16:22:54 12/30/19 22 12/29/2021 CBC/C OMPLE TE BLD COUNT W/DIF F immature granulocytes ,absolute 0.05 x10'3 /uL 0.00-0 .05 Not Available [facility] (Lab) [address] [place], [address], 12/29/2021 16:22:54 12/30/19 22 12/29/2021 CBC/C OMPLE TE BLD COUNT W/DIF F nucleated red blood cells 0.0 % -0 Not Available [facility] (Lab) [address] [place], [address], 12/29/2021 16:22:54 12/30/19 22 12/29/2021 CBC/C OMPLE TE BLD COUNT W/DIF F NRBC# 0.00 x10'3 /uL Not Available [facility] (Lab) [address] [place], [address], 12/29/2021 16:22:54 06/29/20 22 06/29/2022 HEMOG LOBIN A1C HA1C 5.8 % 4.0-6. 0 Diabe diana Scree torri Crite pattie: <5.7% Consi stent with absen ce of diabe diana 5.7-6 .4% Consi stent with incre ased risk for diabe diana (pred iabet es) >OR=6 .5% Consi stent with diabe diana REFER ENCE: Diabe diana Care 2016, 39(Norman ppl.1 ):s13 -s22 Not Available [facility] (Lab) [address] [place], [address], 06/29/2022 20:46:32 06/29/20 22 06/29/2022 COMPR EHENS VALERIE METAB OLIC PANEL sodium 139 mmol/ L 137-14 5 Not Available [facility] (Lab) [address] [place], [address], 06/29/2022 16:56:43 06/29/20 22 06/29/2022 COMPR EHENS VALERIE METAB OLIC PANEL potassium 5.1 mmol/ L 3.5-5. 1 Not Available [facility] (Lab) [address] [place], [address], 06/29/2022 16:56:43 06/29/2006/29/2022 COMPR EHENS VALERIE METAB OLIC PANEL chloride 104 mmol/ L 98-107 Not Available [facility] (Lab) [address] [place], [address], 06/29/2022 16:56:43 06/29/2006/29/2022 COMPR EHENS VALERIE METAB OLIC PANEL carbon dioxide 26 mmol/ L 22-30 Not Available [facility] (Lab) [address] [place], [address], 06/29/2022 16:56:43 06/29/2006/29/2022 COMPR EHENS VALERIE METAB OLIC PANEL anion gap 14.1 mmol/ L 14-22 Not Available [facility] (Lab) [address] [place], [address], 06/29/2022 16:56:43 06/29/2006/29/2022 COMPR EHENS VALERIE METAB OLIC PANEL glucose 125 mg/dL 70-99 high Not Available [facility] (Lab) [address] [place], [address], 06/29/2022 16:56:43 06/29/2006/29/2022 COMPR EHENS VALERIE METAB OLIC PANEL BUN 23 mg/dL 8-19 high Not Available [facility] (Lab) [address] [place], [address], 06/29/2022 16:56:43 06/29/20 22 06/29/2022 COMPR EHENS VALERIE METAB OLIC PANEL creatinine 1.25 mg/dL 0.66-1 .25 Not Available [facility] (Lab) [address] [place], [address], 06/29/2022 16:56:43 06/29/20 22 06/29/2022 COMPR EHENS VALERIE METAB OLIC PANEL GFR 56 Refer ence Range : [place] ge GFR Healt hy Adult : >60 [...] calcu lator is avail able on the [facility] websi te: https :[email or web address] [email or web address] slaughter/[email or web address] hookeress ional s/kdo qi/gf r_cal culat or Not Available [facility] (Lab) [address] [place], [address], 06/29/2022 16:56:43 06/29/2006/29/2022 COMPR EHENS VALERIE METAB OLIC PANEL alkaline phosphatase 87 U/L 38-126 Not Available [facility] (Lab) [address] [place], [address], 06/29/2022 16:56:43 06/29/2006/29/2022 COMPR EHENS VALERIE METAB OLIC PANEL alanine aminotransfe rase 17 U/L 0-50 Not Available [facility] (Lab) [address] [place], [address], 06/29/2022 16:56:43 06/29/20 22 06/29/2022 COMPR EHENS VALERIE METAB OLIC PANEL aspartate aminotransfe rase 24 U/L 15-46 Not Available [facility] (Lab) [address] [place], [address], 06/29/2022 16:56:43 06/29/20 22 06/29/2022 COMPR EHENS VALERIE METAB OLIC PANEL bilirubin, total 0.90 mg/dL 0.20-1 .30 Not Available [facility] (Lab) [address] [place], [address], 06/29/2022 16:56:43 06/29/2006/29/2022 COMPR EHENS VALERIE METAB OLIC PANEL calcium 10.2 mg/dL 8.4-10 .2 Not Available [facility] (Lab) [address] [place], [address], 06/29/2022 16:56:43 06/29/2006/29/2022 COMPR EHENS VALERIE METAB OLIC PANEL total protein 7.4 g/dL 6.3-8. 2 Not Available [facility] (Lab) [address] [place], [address], 06/29/2022 16:56:43 06/29/2006/29/2022 COMPR EHENS VALERIE METAB OLIC PANEL albumin 4.4 g/dL 3.0-4. 4 Not Available [facility] (Lab) [address] [place], [address], 06/29/2022 16:56:43 06/29/2006/29/2022 COMPR EHENS VALERIE METAB OLIC PANEL globulin 3.0 g/dL 2.6-4. 2 Not Available [facility] (Lab) [address] [place], [address], 06/29/2022 16:56:43 06/29/2006/29/2022 COMPR EHENS VALERIE METAB OLIC PANEL A/G ratio 1.5 ratio 1.0-2. 0 Not Available [facility] (Lab) [address] [place], [address], 06/29/2022 16:56:43 06/29/20 22 06/29/2022 LIPID PANEL cholesterol 134 mg/dL 140-19 9 low NIH KRISTINE NSUS RECOM MENDA TION FOR IVAN STERO L: ADULT CHILD LOW RISK: <200 <170 BORDE RLINE : <200- 239 ----- HIGH RISK: >240 >200 Not Available [facility] (Lab) [address] [place] [address], [address], 06/29/2022 16:56:36 06/29/20 22 06/29/2022 LIPID PANEL triglyceride s 253 mg/dL 0-150 high NIH KRISTINE NSUS REPOR T RECOM MENDA TION FOR TRIGL YCERI FLACO: ADULT CHILD LOW RISK: <150 ----- BODER LINE: 150-1 99 ----- HIGH RISK: >200 ----- Not Available [facility] (Lab) [address] [place] [address], [id number], 06/29/2022 16:56:36 06/29/20 22 06/29/2022 LIPID PANEL HDL cholesterol 40 mg/dL 40- Not Available [facility] (Lab) [address] [place] [address], [id number], 06/29/2022 16:56:36 06/29/20 22 06/29/2022 LIPID PANEL [...] WILL NOT BE REPOR LILIBETH. Not Available [facility] (Lab) [address] [place], [address], 06/29/2022 16:56:36 06/29/2006/29/2022 MICRO ALBUM N RNDM W/CRE AT RATIO ur creat 112.30 mg/dL REFER ENCE RANGE NOT ESTAB LISHE D FOR RANDO M URINE CREAT ININE Not Available [facility] (Lab) [address] [place], [address], 06/29/2022 16:54:02 06/29/20 22 06/29/2022 MICRO ALBUM N RNDM W/CRE AT RATIO microalbumin , urine 24.1 mg/L 0.0-16 .6 high Not Available [facility] (Lab) [address] [place], [address], 06/29/2022 16:54:02 06/29/2006/29/2022 MICRO ALBUM N RNDM W/CRE AT [...] DI[facility]E [facility], VOL. 26: S94-S 96, SEPUA 2002 Not Available [facility] (Lab) [address] [place], [address], 06/29/2022 16:54:02 06/29/20 22 06/29/2022 CBC/C OMPLE TE BLD COUNT W/DIF F eosinophils, absolute count 0.13 x10'3 /uL 0.02-0 .53 Not Available [facility] (Lab) [address] [place], [address], 06/29/2022 16:34:00 06/29/20 22 06/29/2022 CBC/C OMPLE TE BLD COUNT W/DIF F basophils, absolute count 0.07 x10'3 /uL 0.01-0 .08 Not Available [facility] (Lab) [address] [place], [address], 06/29/2022 16:34:00 06/29/20 22 06/29/2022 CBC/C OMPLE TE BLD COUNT W/DIF F immature granulocytes ,absolute 0.04 x10'3 /uL 0.00-0 .05 Not Available [facility] (Lab) [address] [place], [address], 06/29/2022 16:34:00 06/29/20 22 06/29/2022 CBC/C OMPLE TE BLD COUNT W/DIF F nucleated red blood cells 0.0 % -0 Not Available [facility] (Lab) [address] [place], [address], 06/29/2022 16:34:00 06/29/20 22 06/29/2022 CBC/C OMPLE TE BLD COUNT W/DIF F NRBC# 0.00 x10'3 /uL Not Available [facility] (Lab) [address] [place], [address], 06/29/2022 16:34:00 06/29/20 22 06/29/2022 CBC/C OMPLE TE BLD COUNT W/DIF F white blood cells 9.8 x10'3 /uL 4.2-10 .8 Not Available [facility] (Lab) [address] [place], [address], 06/29/2022 16:34:00 06/29/20 22 06/29/2022 CBC/C OMPLE TE BLD COUNT W/DIF F red blood cells 4.80 x10'6 /uL 4.10-5 .80 Not Available [facility] (Lab) [address] [place], [address], 06/29/2022 16:34:00 06/29/20 22 06/29/2022 CBC/C OMPLE TE BLD COUNT W/DIF F hemoglobin 14.3 g/dL 13.2-1 7.0 Not Available [facility] (Lab) [address] [place], [address], 06/29/2022 16:34:00 06/29/2006/29/2022 CBC/C OMPLE TE BLD COUNT W/DIF F hematocrit 45.7 % 39.3-5 0.0 Not Available [facility] (Lab) [address] [place], [address], 06/29/2022 16:34:00 06/29/20 22 06/29/2022 CBC/C OMPLE TE BLD COUNT W/DIF F mean red cell volume 95.2 fL 80.0-9 7.0 Not Available [facility] (Lab) [address] [place], [address], 06/29/2022 16:34:00 06/29/20 22 06/29/2022 CBC/C OMPLE TE BLD COUNT W/DIF F mean red cell hemoglobin 29.8 pg 27.0-3 3.0 Not Available [facility] (Lab) [address] [place], [address], 06/29/2022 16:34:00 06/29/20 22 06/29/2022 CBC/C OMPLE TE BLD COUNT W/DIF F mean RBC HGB concentratio n 31.3 g/dL 31.0-3 6.0 Not Available [facility] (Lab) [address] [place], [address], 06/29/2022 16:34:00 06/29/20 22 06/29/2022 CBC/C OMPLE TE BLD COUNT W/DIF F red cell distribution width 13.4 % 11.8-1 5.5 Not Available [facility] (Lab) [address] [place], [address], 06/29/2022 16:34:00 06/29/20 22 06/29/2022 CBC/C OMPLE TE BLD COUNT W/DIF F platelets 274 x10'3 /uL 150-40 0 Not Available [facility] (Lab) [address] [place], [address], 06/29/2022 16:34:00 06/29/2006/29/2022 CBC/C OMPLE TE BLD COUNT W/DIF F mean platelet volume 10.6 fL 9.0-12 .4 Not Available [facility] (Lab) [address] [place], [address], 06/29/2022 16:34:00 06/29/20 22 06/29/2022 CBC/C OMPLE TE BLD COUNT W/DIF F neutrophils 68.7 % 39.0-7 2.0 Not Available [facility] (Lab) [address] [place], [address], 06/29/2022 16:34:00 06/29/2006/29/2022 CBC/C OMPLE TE BLD COUNT W/DIF F lymphocytes 18.5 % 16.0-4 7.0 Not Available [facility] (Lab) [address] [place], [address], 06/29/2022 16:34:00 06/29/20 22 06/29/2022 CBC/C OMPLE TE BLD COUNT W/DIF F monocytes 10.4 % 5.0-12 .0 Not Available [facility] (Lab) [address] [place], [address], 06/29/2022 16:34:00 06/29/20 22 06/29/2022 CBC/C OMPLE TE BLD COUNT W/DIF F eosinophils 1.3 % 1.0-7. 0 Not Available [facility] (Lab) [address] [place], [address], 06/29/2022 16:34:00 06/29/20 22 06/29/2022 CBC/C OMPLE TE BLD COUNT W/DIF F basophils 0.7 % 0.0-2. 0 Not Available [facility] (Lab) [address] [place], [address], 06/29/2022 16:34:00 06/29/2006/29/2022 CBC/C OMPLE TE BLD COUNT W/DIF F immature granulocytes 0.4 % 0.00-0 .50 Not Available [facility] (Lab) [address] [place], [address], 06/29/2022 16:34:00 06/29/20 22 06/29/2022 CBC/C OMPLE TE BLD COUNT W/DIF F neutrophils, absolute count 6.70 x10'3 /uL 1.5-8. 0 Not Available [facility] (Lab) [address] [place], [address], 06/29/2022 16:34:00 06/29/20 22 06/29/2022 CBC/C OMPLE TE BLD COUNT W/DIF F lymphocytes, absolute count 1.81 x10'3 /uL 1.07-3 .43 Not Available [facility] (Lab) [address] [place], [address], 06/29/2022 16:34:00 06/29/20 22 06/29/2022 CBC/C OMPLE TE BLD COUNT W/DIF F monocytes, absolute count 1.02 x10'3 /uL 0.29-0 .99 high Not Available [facility] (Lab) [address] [place], [address], 06/29/2022 16:34:00 12/22/19 23 12/21/2022 CBC/C OMPLE TE BLD COUNT W/DIF F white blood cells 7.8 x10'3 /uL 4.2-10 .8 Not Available [facility] (Lab) [address] [facility] [place], [address], 12/21/2022 15:35:42 12/22/19 23 12/21/2022 CBC/C OMPLE TE BLD COUNT W/DIF F red blood cells 4.25 x10'6 /uL 4.10-5 .80 Not Available [facility] (Lab) [address] [place], [address], 12/21/2022 15:35:42 12/22/19 23 12/21/2022 CBC/C OMPLE TE BLD COUNT W/DIF F hemoglobin 12.1 g/dL 13.2-1 7.0 low Not Available [facility] (Lab) [address] [place], [address], 12/21/2022 15:35:42 12/22/19 23 12/21/2022 CBC/C OMPLE TE BLD COUNT W/DIF F hematocrit 39.7 % 39.3-5 0.0 Not Available [facility] (Lab) [address] [place], [address], 12/21/2022 15:35:42 12/22/19 23 12/21/2022 CBC/C OMPLE TE BLD COUNT W/DIF F mean red cell volume 93.4 fL 80.0-9 7.0 Not Available [facility] (Lab) [address] [place], [address], 12/21/2022 15:35:42 12/22/19 23 12/21/2022 CBC/C OMPLE TE BLD COUNT W/DIF F mean red cell hemoglobin 28.5 pg 27.0-3 3.0 Not Available [facility] (Lab) [address] [place], [address], 12/21/2022 15:35:42 12/22/19 23 12/21/2022 CBC/C OMPLE TE BLD COUNT W/DIF F mean RBC HGB concentratio n 30.5 g/dL 31.0-3 6.0 low Not Available [facility] (Lab) [address] [place], [address], 12/21/2022 15:35:42 12/22/19 23 12/21/2022 CBC/C OMPLE TE BLD COUNT W/DIF F red cell distribution width 13.5 % 11.8-1 5.5 Not Available [facility] (Lab) [address] [place], [address], 12/21/2022 15:35:42 12/22/19 23 12/21/2022 CBC/C OMPLE TE BLD COUNT W/DIF F platelets 322 x10'3 /uL 150-40 0 Not Available [facility] (Lab) [address] [place], [address], 12/21/2022 15:35:42 12/22/19 23 12/21/2022 CBC/C OMPLE TE BLD COUNT W/DIF F mean platelet volume 10.5 fL 9.0-12 .4 Not Available [facility] (Lab) [address] [place], [address], 12/21/2022 15:35:42 12/22/19 23 12/21/2022 CBC/C OMPLE TE BLD COUNT W/DIF F neutrophils 64.2 % 39.0-7 2.0 Not Available [facility] (Lab) [address] [place], [address], 12/21/2022 15:35:42 12/22/19 23 12/21/2022 CBC/C OMPLE TE BLD COUNT W/DIF F lymphocytes 22.3 % 16.0-4 7.0 Not Available [facility] (Lab) [address] [place], [address], 12/21/2022 15:35:42 12/22/19 23 12/21/2022 CBC/C OMPLE TE BLD COUNT W/DIF F monocytes 10.6 % 5.0-12 .0 Not Available [facility] (Lab) [address] [place], [address], 12/21/2022 15:35:42 12/22/19 23 12/21/2022 CBC/C OMPLE TE BLD COUNT W/DIF F eosinophils 1.8 % 1.0-7. 0 Not Available [facility] (Lab) [address] [place], [address], 12/21/2022 15:35:42 12/22/19 23 12/21/2022 CBC/C OMPLE TE BLD COUNT W/DIF F basophils 0.8 % 0.0-2. 0 Not Available [facility] (Lab) [address] [place], [address], 12/21/2022 15:35:42 12/22/19 23 12/21/2022 CBC/C OMPLE TE BLD COUNT W/DIF F immature granulocytes 0.3 % 0.00-0 .50 Not Available [facility] (Lab) [address] [place], [address], 12/21/2022 15:35:42 12/22/19 23 12/21/2022 CBC/C OMPLE TE BLD COUNT W/DIF F neutrophils, absolute count 5.03 x10'3 /uL 1.5-8. 0 Not Available [facility] (Lab) [address] [place], [address], 12/21/2022 15:35:42 12/22/19 23 12/21/2022 CBC/C OMPLE TE BLD COUNT W/DIF F lymphocytes, absolute count 1.74 x10'3 /uL 1.07-3 .43 Not Available [facility] (Lab) [address] [place], [address], 12/21/2022 15:35:42 12/22/19 23 12/21/2022 CBC/C OMPLE TE BLD COUNT W/DIF F monocytes, absolute count 0.83 x10'3 /uL 0.29-0 .99 Not Available [facility] (Lab) [address] [place], [address], 12/21/2022 15:35:42 12/22/19 23 12/21/2022 CBC/C OMPLE TE BLD COUNT W/DIF F eosinophils, absolute count 0.14 x10'3 /uL 0.02-0 .53 Not Available [facility] (Lab) [address] [place], [address], 12/21/2022 15:35:42 12/22/19 23 12/21/2022 CBC/C OMPLE TE BLD COUNT W/DIF F basophils, absolute count 0.06 x10'3 /uL 0.01-0 .08 Not Available [facility] (Lab) [address] [place], [address], 12/21/2022 15:35:42 12/22/19 23 12/21/2022 CBC/C OMPLE TE BLD COUNT W/DIF F immature granulocytes ,absolute 0.02 x10'3 /uL 0.00-0 .05 Not Available [facility] (Lab) [address] [place], [address], 12/21/2022 15:35:42 12/22/19 23 12/21/2022 CBC/C OMPLE TE BLD COUNT W/DIF F nucleated red blood cells 0.0 % -0 Not Available [facility] (Lab) [address] [place], [address], 12/21/2022 15:35:42 12/22/19 23 12/21/2022 CBC/C OMPLE TE BLD COUNT W/DIF F NRBC# 0.00 x10'3 /uL Not Available [facility] (Lab) [address] [place], [address], 12/21/2022 15:35:42 12/22/19 23 12/21/2022 COMPR EHENS VALERIE METAB OLIC PANEL sodium 140 mmol/ L 137-14 5 Not Available [facility] (Lab) [address] [place], [address], 12/21/2022 15:55:01 12/22/19 23 12/21/2022 COMPR EHENS VALERIE METAB OLIC PANEL potassium 4.8 mmol/ L 3.5-5. 1 Not Available [facility] (Lab) [address] [place], [address], 12/21/2022 15:55:01 12/22/19 23 12/21/2022 COMPR EHENS VALERIE METAB OLIC PANEL chloride 105 mmol/ L 98-107 Not Available [facility] (Lab) [address] [place], [address], 12/21/2022 15:55:01 12/22/19 23 12/21/2022 COMPR EHENS VALERIE METAB OLIC PANEL carbon dioxide 26 mmol/ L 22-30 Not Available [facility] (Lab) [address] [place], [address], 12/21/2022 15:55:01 12/22/19 23 12/21/2022 COMPR EHENS VALERIE METAB OLIC PANEL anion gap 13.8 mmol/ L 14-22 low Not Available [facility] (Lab) [address] [place], [address], 12/21/2022 15:55:01 12/22/19 23 12/21/2022 COMPR EHENS VALERIE METAB OLIC PANEL glucose 108 mg/dL 70-99 high Not Available [facility] (Lab) [address] [place], [address], 12/21/2022 15:55:01 12/22/19 23 12/21/2022 COMPR EHENS VALERIE METAB OLIC PANEL BUN 25 mg/dL 8-19 high Not Available [facility] (Lab) [address] [place], [address], 12/21/2022 15:55:01 12/22/19 23 12/21/2022 COMPR EHENS VALERIE METAB OLIC PANEL creatinine 1.27 mg/dL 0.66-1 .25 high Not Available [facility] (Lab) [address] [place], [address], 12/21/2022 15:55:01 12/22/19 23 12/21/2022 COMPR EHENS VALERIE METAB OLIC PANEL GFR 55 Refer ence Range : [place] GFR Healt hy Adult : >60 [...] or ethni c subgr oups, such as [facility] nics. Outsi de the valid ated arthur [...] calcu lator is avail able on the [facility] websi te: [email or web address] :[email or web address] rg/pr ofess ional s/kdo qi/gf r_cal culat or Not Available [facility] (Lab) [address] [place], [address], 12/21/2022 15:55:01 12/22/19 23 12/21/2022 COMPR EHENS VALERIE METAB OLIC PANEL alkaline phosphatase 72 U/L 38-126 Not Available [facility] (Lab) [address] [place], [address], 12/21/2022 15:55:01 12/22/19 23 12/21/2022 COMPR EHENS VALERIE METAB OLIC PANEL alanine aminotransfe rase 22 U/L 0-50 Not Available [facility] (Lab) [address] [place], [address], 12/21/2022 15:55:01 12/22/19 23 12/21/2022 COMPR EHENS VALERIE METAB OLIC PANEL aspartate aminotransfe rase 28 U/L 15-46 Not Available [facility] (Lab) [address] [place], [address], 12/21/2022 15:55:01 12/22/19 23 12/21/2022 COMPR EHENS VALERIE METAB OLIC PANEL bilirubin, total 0.80 mg/dL 0.20-1 .30 Not Available [facility] (Lab) [address] [place], [address], 12/21/2022 15:55:01 12/22/19 23 12/21/2022 COMPR EHENS VALERIE METAB OLIC PANEL calcium 9.8 mg/dL 8.4-10 .2 Not Available [facility] (Lab) [address] [place], [address], 12/21/2022 15:55:01 12/22/19 23 12/21/2022 COMPR EHENS VALERIE METAB OLIC PANEL total protein 7.5 g/dL 6.3-8. 2 Not Available [facility] (Lab) [address] [place], [address], 12/21/2022 15:55:01 12/22/19 23 12/21/2022 COMPR EHENS VALERIE METAB OLIC PANEL albumin 4.4 g/dL 3.0-4. 4 Not Available [facility] (Lab) [address] [place], [address], 12/21/2022 15:55:01 12/22/19 23 12/21/2022 COMPR EHENS VALERIE METAB OLIC PANEL globulin 3.1 g/dL 2.6-4. 2 Not Available [facility] (Lab) [address] [place], [address], 12/21/2022 15:55:01 12/22/19 23 12/21/2022 COMPR EHENS VALERIE METAB OLIC PANEL A/G ratio 1.4 ratio 1.0-2. 0 Not Available [facility] (Lab) [address] [place], [address], 12/21/2022 15:55:01 12/22/1912/21/2022 LIPID PANEL cholesterol 128 mg/dL 140-19 9 low NIH KRISTINE NSUS RECOM MENDA TION FOR IVAN STERO L: ADULT CHILD LOW RISK: <200 <170 BORDE RLINE : <200- 239 ----- HIGH RISK: >240 >200 Not Available [facility] (Lab) [address] [place], [address], 12/21/2022 15:55:03 12/22/1912/21/2022 LIPID PANEL triglyceride s 193 mg/dL 0-150 high NIH KRISTINE NSUS REPOR T RECOM MENDA TION FOR TRIGL YCERI FLACO: ADULT CHILD LOW RISK: <150 ----- BODER LINE: 150-1 99 ----- HIGH RISK: >200 ----- Not Available [facility] (Lab) [address] [place], [address], 12/21/2022 15:55:03 12/22/19 23 12/21/2022 LIPID PANEL HDL cholesterol 42 mg/dL 40- Not Available [facility] (Lab) [address] [place], [address], 12/21/2022 15:55:03 12/22/19 23 12/21/2022 LIPID PANEL [...] WILL NOT BE REPOR LILIBETH. Not Available [facility] (Lab) [address] [place], [address], 12/21/2022 15:55:03 12/22/19 23 12/21/2022 PSA, TOTAL PSA, total 3.68 NG/mL 0.00-4 .00 Not Available [facility] (Lab) [address] [place], [address], 12/21/2022 16:20:55 12/22/19 23 12/21/2022 HEMOG LOBIN A1C HA1C 5.7 % 4.0-6. 0 Diabe diana Scree torri Crite pattie: <5.7% Consi stent with absen ce of diabe diana 5.7-6 .4% Consi stent with incre ased risk for diabe diana (pred iabet es) >OR=6 .5% Consi stent with diabe diana REFER ENCE: Diabe diana Care 2016, 39(Norman ppl.1 ):s13 -s22 Not Available [facility] (Lab) [address] [place], [address], 12/21/2022 20:11:21 06/21/20 23 06/21/2023 CBC/C OMPLE TE BLD COUNT W/DIF F white blood cells 7.5 x10'3 /uL 4.2-10 .8 Not Available [facility] (Lab) [address] [place], [address], 06/21/2023 15:37:29 06/21/20 23 06/21/2023 CBC/C OMPLE TE BLD COUNT W/DIF F red blood cells 4.56 x10'6 /uL 4.10-5 .80 Not Available [facility] (Lab) [address] [place], [address], 06/21/2023 15:37:29 06/21/2006/21/2023 CBC/C OMPLE TE BLD COUNT W/DIF F hemoglobin 12.7 g/dL 13.2-1 7.0 low Not Available [facility] (Lab) [address] [place], [address], 06/21/2023 15:37:29 06/21/20 23 06/21/2023 CBC/C OMPLE TE BLD COUNT W/DIF F hematocrit 41.7 % 39.3-5 0.0 Not Available [facility] (Lab) [address] [place], [address], 06/21/2023 15:37:29 06/21/2006/21/2023 CBC/C OMPLE TE BLD COUNT W/DIF F mean red cell volume 91.4 fL 80.0-9 7.0 Not Available [facility] (Lab) [address] [place], [address], 06/21/2023 15:37:29 06/21/20 23 06/21/2023 CBC/C OMPLE TE BLD COUNT W/DIF F mean red cell hemoglobin 27.9 pg 27.0-3 3.0 Not Available [facility] (Lab) [address] [place], [address], 06/21/2023 15:37:29 06/21/20 23 06/21/2023 CBC/C OMPLE TE BLD COUNT W/DIF F mean RBC HGB concentratio n 30.5 g/dL 31.0-3 6.0 low Not Available [facility] (Lab) [address] [place], [address], 06/21/2023 15:37:29 06/21/20 23 06/21/2023 CBC/C OMPLE TE BLD COUNT W/DIF F red cell distribution width 14.6 % 11.8-1 5.5 Not Available [facility] (Lab) [address] [place], [address], 06/21/2023 15:37:29 06/21/20 23 06/21/2023 CBC/C OMPLE TE BLD COUNT W/DIF F platelets 300 x10'3 /uL 150-40 0 Not Available [facility] (Lab) [address] [place], [address], 06/21/2023 15:37:29 06/21/20 23 06/21/2023 CBC/C OMPLE TE BLD COUNT W/DIF F mean platelet volume 10.7 fL 9.0-12 .4 Not Available [facility] (Lab) [address] [place], [address], 06/21/2023 15:37:29 06/21/2006/21/2023 CBC/C OMPLE TE BLD COUNT W/DIF F neutrophils 60.3 % 39.0-7 2.0 Not Available [facility] (Lab) [address] [place], [address], 06/21/2023 15:37:29 06/21/20 23 06/21/2023 CBC/C OMPLE TE BLD COUNT W/DIF F lymphocytes 25.6 % 16.0-4 7.0 Not Available [facility] (Lab) [address] [place], [address], 06/21/2023 15:37:29 06/21/2006/21/2023 CBC/C OMPLE TE BLD COUNT W/DIF F monocytes 11.2 % 5.0-12 .0 Not Available [facility] (Lab) [address] [place], [address], 06/21/2023 15:37:29 06/21/2006/21/2023 CBC/C OMPLE TE BLD COUNT W/DIF F eosinophils 1.7 % 1.0-7. 0 Not Available [facility] (Lab) [address] [facility] [place], [address], 06/21/2023 15:37:29 06/21/20 23 06/21/2023 CBC/C OMPLE TE BLD COUNT W/DIF F basophils 0.9 % 0.0-2. 0 Not Available [facility] (Lab) [address] [place], [address], 06/21/2023 15:37:29 06/21/2006/21/2023 CBC/C OMPLE TE BLD COUNT W/DIF F immature granulocytes 0.3 % 0.00-0 .50 Not Available [facility] (Lab) [address] [place], [address], 06/21/2023 15:37:29 06/21/2006/21/2023 CBC/C OMPLE TE BLD COUNT W/DIF F neutrophils, absolute count 4.53 x10'3 /uL 1.5-8. 0 Not Available [facility] (Lab) [address] [place], [address], 06/21/2023 15:37:29 06/21/20 23 06/21/2023 CBC/C OMPLE TE BLD COUNT W/DIF F lymphocytes, absolute count 1.92 x10'3 /uL 1.07-3 .43 Not Available [facility] (Lab) [address] [place], [address], 06/21/2023 15:37:29 06/21/2006/21/2023 CBC/C OMPLE TE BLD COUNT W/DIF F monocytes, absolute count 0.84 x10'3 /uL 0.29-0 .99 Not Available [facility] (Lab) [address] [place], [address], 06/21/2023 15:37:29 06/21/2006/21/2023 CBC/C OMPLE TE BLD COUNT W/DIF F eosinophils, absolute count 0.13 x10'3 /uL 0.02-0 .53 Not Available [facility] (Lab) [address] [place], [address], 06/21/2023 15:37:29 06/21/2006/21/2023 CBC/C OMPLE TE BLD COUNT W/DIF F basophils, absolute count 0.07 x10'3 /uL 0.01-0 .08 Not Available [facility] (Lab) [address] [place], [address], 06/21/2023 15:37:29 06/21/2006/21/2023 CBC/C OMPLE TE BLD COUNT W/DIF F immature granulocytes ,absolute 0.02 x10'3 /uL 0.00-0 .05 Not Available [facility] (Lab) [address] [place], [address], 06/21/2023 15:37:29 06/21/2006/21/2023 CBC/C OMPLE TE BLD COUNT W/DIF F nucleated red blood cells 0.0 % -0 Not Available [facility] (Lab) [address] [place], [address], 06/21/2023 15:37:29 06/21/20 23 06/21/2023 CBC/C OMPLE TE BLD COUNT W/DIF F NRBC# 0.00 x10'3 /uL Not Available [facility] (Lab) [address] [place], [address], 06/21/2023 15:37:29 06/21/2006/21/2023 LIPID PANEL cholesterol 126 mg/dL 140-19 9 low NIH KRISTINE NSUS RECOM MENDA TION FOR IVAN STERO L: ADULT CHILD LOW RISK: <200 <170 BORDE RLINE : <200- 239 ----- HIGH RISK: >240 >200 Not Available [facility] (Lab) [address] [place], [address], 06/21/2023 15:42:45 06/21/2006/21/2023 LIPID PANEL triglyceride s 201 mg/dL 0-150 high NIH KRISTINE NSUS REPOR T RECOM MENDA TION FOR TRIGL YCERI FLACO: ADULT CHILD LOW RISK: <150 ----- BODER LINE: 150-1 99 ----- HIGH RISK: >200 ----- Not Available [facility] (Lab) [address] [place], [address], 06/21/2023 15:42:45 06/21/2006/21/2023 LIPID PANEL HDL cholesterol 38 mg/dL 40- low Not Available [facility] (Lab) [address] [place], [address], 06/21/2023 15:42:45 06/21/2006/21/2023 LIPID PANEL LDL cholesterol, calculated 48 mg/dL [...] WILL NOT BE REPOR LILIBETH. Not Available [facility] (Lab) [address] [place], [address], 06/21/2023 15:42:45 06/21/2006/21/2023 COMPR EHENS VALERIE METAB OLIC PANEL sodium 140 mmol/ L 137-14 5 Not Available [facility] (Lab) [address] [facility] [place], [address], 06/21/2023 15:42:51 06/21/2006/21/2023 COMPR EHENS VALEIRE METAB OLIC PANEL potassium 4.5 mmol/ L 3.5-5. 1 Not Available [facility] (Lab) [address] [place], [address], 06/21/2023 15:42:51 06/21/2006/21/2023 COMPR EHENS VALERIE METAB OLIC PANEL chloride 106 mmol/ L 98-107 Not Available [facility] (Lab) [address] [place], [address], 06/21/2023 15:42:51 06/21/2006/21/2023 COMPR EHENS VALERIE METAB OLIC PANEL carbon dioxide 26 mmol/ L 22-30 Not Available [facility] (Lab) [address] [place], [address], 06/21/2023 15:42:51 06/21/2006/21/2023 COMPR EHENS VALERIE METAB OLIC PANEL anion gap 12.5 mmol/ L 14-22 low Not Available [facility] (Lab) [address] [place], [address], 06/21/2023 15:42:51 06/21/2006/21/2023 COMPR EHENS VALERIE METAB OLIC PANEL glucose 123 mg/dL 70-99 high Not Available [facility] (Lab) [address] [place], [address], 06/21/2023 15:42:51 06/21/2006/21/2023 COMPR EHENS VALERIE METAB OLIC PANEL BUN 22 mg/dL 8-19 high Not Available [facility] (Lab) [address] [place], [address], 06/21/2023 15:42:51 06/21/2006/21/2023 COMPR EHENS VALERIE METAB OLIC PANEL creatinine 1.23 mg/dL 0.66-1 .25 Not Available [facility] (Lab) [address] [place], [address], 06/21/2023 15:42:51 06/21/2006/21/2023 COMPR EHENS VALERIE METAB OLIC PANEL GFR 57 Refer ence Range : [place] ge GFR Healt hy Adult : >60 [...] or ethni c subgr oups, such as tx nics. Outsi de the valid ated arthur [...] able on the F websi te: [email or web address] :[email or web address] ofess ional s/kdo qi/gf r_cal culat or Not Available [facility] (Lab) [address] [place], [address], 06/21/2023 15:42:51 06/21/2006/21/2023 COMPR EHENS VALERIE METAB OLIC PANEL alkaline phosphatase 70 U/L 38-126 Not Available [facility] (Lab) [address] [place], [address], 06/21/2023 15:42:51 06/21/2006/21/2023 COMPR EHENS VALERIE METAB OLIC PANEL alanine aminotransfe rase 19 U/L 0-50 Not Available [facility] (Lab) [address] [place], [address], 06/21/2023 15:42:51 06/21/2006/21/2023 COMPR EHENS VALERIE METAB OLIC PANEL aspartate aminotransfe rase 24 U/L 15-46 Not Available [facility] (Lab) [address] [place], [address], 06/21/2023 15:42:51 06/21/2006/21/2023 COMPR EHENS VALERIE METAB OLIC PANEL bilirubin, total 0.80 mg/dL 0.20-1 .30 Not Available [facility] (Lab) [address] [place], [address], 06/21/2023 15:42:51 06/21/2006/21/2023 COMPR EHENS VALERIE METAB OLIC PANEL calcium 9.8 mg/dL 8.4-10 .2 Not Available [facility] (Lab) [address] [place], [address], 06/21/2023 15:42:51 06/21/2006/21/2023 COMPR EHENS VALERIE METAB OLIC PANEL total protein 7.2 g/dL 6.3-8. 2 Not Available [facility] (Lab) [address] [place], [address], 06/21/2023 15:42:51 06/21/2006/21/2023 COMPR EHENS VALERIE METAB OLIC PANEL albumin 4.2 g/dL 3.0-4. 4 Not Available [facility] (Lab) [address] [place], [address], 06/21/2023 15:42:51 06/21/20 23 06/21/2023 COMPR EHENS VALERIE METAB OLIC PANEL globulin 3.0 g/dL 2.6-4. 2 Not Available [facility] (Lab) [address] [place], [address], 06/21/2023 15:42:51 06/21/2006/21/2023 COMPR EHENS VALERIE METAB OLIC PANEL A/G ratio 1.4 ratio 1.0-2. 0 Not Available [facility] (Lab) [address] [place], [address], 06/21/2023 15:42:51 06/21/2006/21/2023 HEMOG LOBIN A1C HA1C 6.3 % 4.0-6. 0 high Diabe diana Scree torri Crite pattie: <5.7% Consi stent with absen ce of diabe diana 5.7-6 .4% Consi stent with incre ased risk for diabe diana (pred iabet es) >OR=6 .5% Consi stent with diabe diana REFER ENCE: Diabe diana Care 2016, 39(Norman ppl.1 ):s13 -s22 Not Available [facility] (Lab) [address] [place], [address], 06/21/2023 21:08:58 12/22/1903/25/2017 colon oscop y scree [...] Organization Details Recorded Time Benign essential hypertension [id number] Active Not Available [facility] 3 07:03:38 Liver enzymes outside reference range 776638934 Active Not Available [facility] 3 07:03:38 Blood glucose outside reference range 870338040 Active Not Available [facility] 3 07:03:38 Localized, primary osteoarthriti s of the shoulder region 324920346 Active Not Available [facility] 3 07:03:38 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 Not Available [facility] 3 07:03:38 Pure hypercholeste rolemia 062870559 Active Not Available [facility] 3 07:03:38 Chest pain 47939969 Active Not Available [facility] 3 07:03:38 Prostate specific antigen above reference range 975583110 Active 2021 Not Available [facility] 3 07:03:38 Type 2 diabetes mellitus 53278198 Active 2020 Not Available [facility] 3 07:03:38 Pain of shoulder region 18877500 Active Not Available [facility] 3 07:03:38 Epigastric pain 82101750 Active Not Available [facility] 3 07:03:38 Hyperglycemia 53105388 Active Not Available [facility] 3 07:03:38 Problem Notes None recorded. Procedures Surgical History Date Name Laterality Status Provider Name and Address Organization Details Recorded Time 02/04/20 20 Hip surgery completed Not Available [facility] 11/11/2022 04:42:31 07/15/20 16 total shoulder replacement completed Not Available [facility] 11/11/2022 04:42:31 11/28/19 14 Laparoscopic cholecystectomy completed Not Available [facility] 11/11/2022 04:42:31 Eye Surgery completed Not Available [facility] 11/11/2022 04:42:31 other completed Not Available [facility] 11/11/2022 04:42:31 Imaging Results None recorded. Procedure Notes None recorded. Medical Equipment None [...] Available Not Available diclofenac sodium 75 mg tablet,jsoe yed release TK 1 T PO BID [...] administe red by the provider 09/02 completed [facility]: [id number]- [id number] Not Available [...] Available Not Available No t Available Fluvirin [id number] mcg (15 mcg x 3)/0.5 mL intramuscul ar suspension ADM 0.5ML UTD active Not Available Not Available No t Available Fluvirin [id number] 45 mcg (15 mcg x 3)/0.5 mL intramuscul ar suspension INJECT 0.5 ML INTRAMUSC ULARLY DIRECTED. active Not Available Not Available No t Available Fluzone High-Dose [id number] (PF) 180 mcg/0.5 mL intramuscul ar syringe ADM 0.5ML IM UTD 12/30 completed Not Available Not Available Not Available Fluzone High-Dose [id number] (PF) 180 mcg/0.5 mL intramuscul ar syringe ADM 0.5ML IM UTD 06/30 completed Not Available Not Available Not Available Shingrix (PF) 50 mcg/0.5 mL intramuscul ar suspension, kit ADM 0.5ML IM UTD 07/12 completed Not Available Not Available Not Available Fluzone High-Dose (PF) 180 mcg/0.5 mL intramuscul ar syringe ADM 0.5ML IM UTD 07/12 completed Not Available Not Available Not Available Fluzone High-Dose Quad (PF) 240 mcg/0.7 mL IM syringe ADM 0.7ML IM UTD 05/13 completed Not Available Not Available Not Available Vitals Date Recorded Body height Body mass index (BMI) Body weight Body temperature Heart rate Systolic And Diastolic Provider Name and Address Organization Details Last Updated DateTime 3 167.64 cm 29.1 kg/m2 39325.6 3 g 98.8 [degF] 82 /min 136/80 mm[Hg] Nadia rodríguez RN [facility] 3 14:13:05 Date Recorded Body mass index (BMI) Body height Heart rate Body temperature Body weight Systolic And Diastolic Provider Name and Address Organization Details Last Updated DateTime 2 28.4 kg/m2 167.64 cm 84 /min 98 [degF] 48981.2 6 g 122/68 mm[Hg] Not Available [facility] 3 04:44:47 Date Recorded Body height Body mass index (BMI) Body weight Body temperature Heart rate Systolic And Diastolic Provider Name and Address Organization Details Last Updated DateTime 3 167.64 cm 28.6 kg/m2 87421.8 5 g 99.4 [degF] 89 /min 132/78 mm[Hg] GALI Wagner [facility] 3 13:57:43 Date Recorded Body mass index (BMI) Body height Heart rate Body temperature Body weight Systolic And Diastolic Provider Name and Address Organization Details Last Updated DateTime 2 28.7 kg/m2 167.64 cm 82 /min 98.3 [degF] 95836.4 4 g 126/78 mm[Hg] Not Available [facility] 3 04:44:47 Date Recorded Body mass index (BMI) Body height Heart rate Body temperature Body weight Systolic And Diastolic Provider Name and Address Organization Details Last Updated DateTime 1 28.4 kg/m2 167.64 cm 80 /min 98.8 [degF] 50465.2 6 g 136/72 mm[Hg] Not Available [facility] 3 04:44:47 Social History Question Answer Notes LastModified by Organizat ion Details LastModified Time Tobacco Smoking Status Never Smoker KEON Aguirre, [place] - [employer] [employer] [facility] [place] [employer] [facility] 06/21/2023 13:48:11 Do You Have An Advance Directive? Yes POA In Chart. [id number] Information not available 11/11/2022 Do You Wear A Helmet When Biking? No [email or web address] Information not available 06/21/2023 Are You Blind Or Do You Have Difficulty Seeing? No [email or web address] Information not available 06/21/2023 What Is Your Level Of Caffeine Consumption? Occasional [id number] Information not available 11/11/2022 How Much Tobacco Do You Chew? None [id number] Information not available 11/11/2022 In The 14 Days Before Symptom Onset, Have You Had Close Contact With A Laboratory-confi rmed COVID-19 While That Case Was Ill? No [email or web address] Information not available 06/21/2023 In The 14 Days Before Symptom Onset, Have You Had Close Contact With A Person Who Is Under Investigation For COVID-19 While That Person Was Ill? No [email or web address] Information not available 06/21/2023 Are You Deaf Or Do You Have Serious Difficulty Hearing? No [email or web address] Information not available 06/21/2023 What Type Of Diet Are You Following? DIABETIC [id number] Information not available 11/11/2022 Which Illicit Or Recreational Drugs Have You Used? None [email or web address] Information not available 06/21/2023 What Is The Highest Grade Or Level Of School You Have Completed Or The Highest Degree You Have Received? [id number] [email or web address] Information not available 06/21/2023 How Many Days Of Moderate To Strenuous Exercise, Like A Brisk Walk, Did You Do In The Last 7 Days? 7 [email or web address] Information not available 06/21/2023 On Those Days That You Engage In Moderate To Strenuous Exercise, How Many Minutes, On Average, Do You Exercise? 20 [email or web address] Information not available 06/21/2023 Have There Been Any Changes To Your Family Or Social Situation? No [email or web address] Information not available 06/21/2023 What Is The Fluoride Status Of Your Home? Unknown Information not available 06/21/2023 Are There Any Guns Present In Your Home? Yes [email or web address] Information not available 06/21/2023 Do You Use Insect Repellent Routinely? No [email or web address] Information not available 06/21/2023 Where Do You Live? SingleLevelHouse [email or web address] Information not available 06/21/2023 Do You Have A Medical Power Of Transfer Operator? Yes [email or web address] Information not available 06/21/2023 What Was The Date Of Your Most Recent Tobacco Screening? 06/21/2023 [email or web address] Information not available 06/21/2023 Do You Have Any Pets? No [email or web address] Information not available 06/21/2023 What Is Your Relationship Status? [id number] Information not available 11/11/2022 Do You Use Your Seat Belt Or Car Seat Routinely? Yes [email or web address] Information not available 06/21/2023 Do You Have Smoke And Carbon Monoxide Detectors In Your Home? Yes [email or web address] Information not available 06/21/2023 Are You Passively Exposed To Smoke? No [email or web address] Information not available 06/21/2023 Are There Any Smokers In Your House? No [email or web address] Information not available 06/21/2023 How Much Tobacco Do You Smoke? No [id number] Information not available 11/11/2022 What Types Of Sporting Activities Do You Participate In? None Information not available 06/21/2023 Do You Use Sunscreen Routinely? No [email or web address] Information not available 06/21/2023 Has Tobacco Cessation Counseling Been Provided? No N/A [email or web address] Information not available 06/21/2023 How Many Years Have You Smoked Tobacco? 0 [email or web address] Information not available 06/21/2023 Have You Recently Traveled Abroad? No [email or web address] Information not available 06/21/2023 Do You Have Difficulty Walking Or Climbing Stairs? No [email or web address] Information not available 06/21/2023 Do You Have Any Dietary Restrictions? No [email or web address] Information not available 06/21/2023 Sex: Male Functional Status Question Answer Note LastModified by Organizat ion Details LastModified Time Do you use any illicit or recreational drugs? No [email or web address] Information not available 06/21/2023 Do you or have you ever used any other forms of tobacco or nicotine? No [email or web address] Information not available 06/21/2023 What is your level of alcohol consumption? None [id number] Information not available 11/11/2022 Do you or have you ever used smokeless tobacco? Never used smokeless tobacco MIGRATION.[id number] Information not available 11/11/2022 Do you have transportation difficulties? No [email or web address] Information not available 06/21/2023 Are you able to walk? YESWOREST [email or web address] Information not available 06/21/2023 Do you have difficulty doing errands alone? No [email or web address] Information not available 06/21/2023 Are you able to care for yourself? Yes [email or web address] Information n ot available 06/21/2023 What is your occupation? retired [email or web address] Information not available 06/21/2023 Do you have difficulty dressing or bathing? No [email or web address] Information not available 06/21/2023 Do you or have you ever used e-cigarettes or vape? Never used electronic cigarettes [email or web address] Information not available 06/21/2023 What is your exercise level? Moderate MIGRATION.[id number] Information not available 11/11/2022 Mental Status Question Answer Note LastModified by Organizat ion Details LastModified Time Do you feel stressed (tense, restless, nervous, or anxious, or unable to sleep at night)? [id number] [email or web address] Information not available 06/21/2023 Do you have difficulty concentrating, remembering or making decisions? No [email or web address] Information no t available 06/21/2023 Family History Relationship Description Onset Age of this Age Resolved Age Notes LastModified by Organization Details LastModified Time Mother Cerebrovascu lar accident Not available 1 13:48:08 Father Heart disease [id number] Not available 11/11/2022 04:42:33 Medical History Condition Response NERVE DISEASE N BLINDNESS N RHEUMATIC FEVER N KIDNEY STONES N BLADDER PROBLEMS N MRSA N OTHER # 1 N POLIO N LUNG DISEASE/DISORDER N COPD N RADIATION / CHEMOTHERAPY N Other # 2 N BLOOD DISEASES [...] HAVE YOU BEEN HOSPITALIZED OR SEEN IN [facility] IN THE PAST YEAR ? N ATHEROSCLEROSIS [...] mcg/0.3 mL dose 1 completed Not Available [facility] 06/30/2023 07:03:38 COVID-19, mRNA, LNP-S, PF, 30 mcg/0.3 mL dose 1 completed Not Available [facility] 06/30/2023 07:03:38 Influenza, high-dose, quadrivalent, PF 0 completed Not Available [facility] 06/30/2023 07:03:38 Influenza, high-dose, trivalent, PF 9 completed Not Available [facility] 06/30/2023 07:03:39 zoster, unspecified formulation 9 completed Not Available [facility] 06/30/2023 07:03:38 zoster recombinant 9 completed Not Available [facility] 06/30/2023 07:03:38 Pneumococcal conjugate PCV 13 8 completed Not Available [facility] 06/30/2023 07:03:39 influenza, unspecified formulation 8 completed Not Available [facility] 06/30/2023 07:03:39 Influenza, high-dose, trivalent, PF 7 completed Not Available [facility] 06/30/2023 07:03:39 Influenza, high-dose, quadrivalent, PF 2 completed Not Available [facility] 06/30/2023 07:03:38 COVID-19, mRNA, LNP-S, PF, 30 mcg/0.3 mL dose 2 completed Not Available [facility] 06/30/2023 07:03:39 COVID-19, mRNA, LNP-S, PF, 30 mcg/0.3 mL dose 2 completed Not Available [facility] 06/30/2023 07:03:38 COVID-19, mRNA, LNP-S, PF, 30 mcg/0.3 mL dose 1 completed Not Available [facility] 06/30/2023 07:03:39 Influenza, high-dose, quadrivalent, PF 1 completed Not Available [facility] 06/30/2023 07:03:38 Pneumococcal conjugate PCV 13 5 completed Not Available [facility] 06/30/2023 07:03:39 Influenza, high-dose, trivalent, PF 6 completed Not Available [facility] 06/30/2023 07:03:39 Influenza, split virus, quadrivalent, PF 5 completed Not Available [facility] 06/30/2023 07:03:39 Past Encounters Encounter ID Performer Location Encounter Start Date Encounter Closed Date Diagnosis/Indication Diagnosis SNOMED-CT Code Diagnosis ICD10 Code Diagnosis Note [id number] Marlyn Ferraro MD [facility] [address] [address] 12/30/2020 00:00:00 01/04/2021 22:39:46 [id number] Marlyn Ferraro MD [facility] [place] [facility] [address] [facility] [address] [address] 06/30/2021 00:00:00 06/30/2021 22:19:29 [id number] Marlyn Ferraro MD [facility] [place] [facility] [address] [facility] [address] [address] 12/29/2021 00:00:00 12/29/2021 21:01:21 [id number] Marlyn Ferraro MD [facility] [place] [facility] [address] [facility] [address] [address] 06/29/2022 00:00:00 06/29/2022 15:29:45 [id number] Marlyn Ferraro MD [facility] [place] [facility] [address] [facility] [address] [address] 12/21/2022 13:45:01 12/21/2022 14:47:32 Benign essential hypertension 3783164 I10 Prostate s pecific antigen above reference range 539929818 R97.20 Type 2 lorie betes mellitus 86740274 E11.9 [id number] Marlyn Ferraro MD [facility] [address] [address] 06/21/2023 13:47:06 06/21/2023 14:27:16 Type 2 diabetes mellitus 80160231 E11.9 Benign ess ential hypertension 3292423 I10 Pure hypercholesterolemia 163238899 E78.00 Health Concerns Section Related Observation LastModified by Organization Detai ls LastModified Time None Recorded Concern Status LastModified by Organization Details LastModified Time None Recorded Advance Directives Directive Y: POA in chart. Payers Insurance Date Sequence Insurance Name Policy Number Policy Che Covered Member ID Che Member ID Guarantor Name 12/17/2023 1 [place] Priscilla Dennis [id number] Priscilla Dennis 06/15/2023 2 [employer]TRY [employer] (MEDICARE SUPPLEMENT) PLAN F Priscilla Dennis [id number] Priscilla Dennis Notes Date Note Type Note Provider Name and Address Organization Details Recorded Time 3 text/html Hypertension no chest pain or shortness of breathDiabetes no polyphagia no polydipsiaDyslipidemia does try to follow low-fat dietHistory of peptic ulcer disease has not had anything to suggest recurrenceHistory of elevated PSA needs to be recheck Marlyn Ferraro MD [address] [employer], [place], [address], [employer] 12/21/2022 14:47:40 3 text/html Hypertension no chest pain or shortness of breathDiabetes no polyphagia no polydipsiaDyslipidemia does try to follow low-fat dietHistory of peptic ulcer disease has not had anything to suggest recurrenceHistory of elevated PSA needs to be recheck has followed with urology Marlyn Ferraro MD [address], [place], [address], [employer] 06/21/2023 22:42:05
--- OUTSIDE RECORDS SUMMARY | 2025-03-19 14:29 | XMS_ITS | Continuity of Care Document ---
Author Organization [facility] Address [address] [place] [address] Exec utive [facility] [address] [place] [address] Phone Care Team Providers Care Brilliandeer Looper Name Role Phone Pamela East Unavailable Unavailable Advance Directives Directive Yes / No Effective Date File Name No Information Encounters Encounter Description Practice Location Reason(s) For Visit Diagnoses Date Provider Providers Copied on Encounter [facility], [address], [place], [place], [id number], [place] tel:[phone] [facility] No Information 3 Kita Santiago. [address] , [address], [place], [address], [place]. tel:[phone] Family History Family Member Type Diagnosis Age At Onset No Information Payers Payer name Insurance type Covered alliance party ID Authoriza tion(s) No Information Social History [...]
--- NOTE | 2025-03-19 14:34 | ECG_ITS ---
Test Date: 2025-03-19 14:35:34 Measurements Intervals [place] Rate: 72 P: 38 SD: 166 QRS: -18 QRSD: 96 T: 26 QT: 373 QTc: 410 Interpretive Statements SINUS RHYTHM ST ELEVATION, CONSIDER INFERIOR INJURY [MARKED ST ELEVATION W/O NORMALLY INFLECTED T WAVE IN II/aVF] ACUTE ME No previous ECG available for comparison Electronically Signed On 03-19-2025 22:11:51 CDT by Traci Rios M.D.
--- OUTSIDE RECORDS SUMMARY | 2025-03-19 14:44 | XMS_ITS | Continuity of Care Document ---
Author Organization [facility] Address [address] [place] [address] Exec [address]ive [facility] [address] [place] [address] Phone Care Team Providers Care Pediatric Np Name Role Phone Pamela East Unavailable Unavailable Advance Directives Directive Yes / No Effective Date File Name No Information Encounters Encounter Description Practice Location Reason(s) For Visit Diagnoses Date Provider Providers Copied on Encounter [facility], [address], [place], [place], [id number], [place] tel:[phone] [facility] No Information 3 Kita Santiago. [address] , [address], [place], [address], [place]. tel:[phone] Family History Family Member Type Diagnosis Age [...]
--- NOTE | 2025-03-19 14:45 | PC.NURSE ---
1444- general laborer team at bedside. Blood drawn and sent to lab 1445- IV Initiated. NS IV fluids hung at KVO rate. Pt placed on 2L NC for pt comfort. Cardiology arrives to bedside. Heparin 4000 units given IVP per cardiology verbal order. 1447-ASA 324mg PO given at request of cardiology. 1451- Pt left the department with label maker team on monitors.
--- NOTE | 2025-03-19 14:46 | ED.CHESTPAIN ---
HPI - Chest Pain General Chief Complaint: Chest Pain Stated Complaint: chest pain History of Present Illness HPI narrative: Pt was m owing yard about 90 minutes ago and developed pain in epigastrum and chest which radiated into neck and jaw and down right arm. Pt said it was 9/10 initially and now 7/10. No Hx of [place]. Related Data Home Medications ?Medication ?Instructions ?Recorded ?Confirmed ?Last Taken ?Type atorvastatin 20 mg tablet 20 mg PO 3XW 02/07/20 03/19/25 03/19/25 History lisinopril 20 mg tablet 20 mg PO DAILY 02/07/20 03/19/25 03/19/25 History xlodhuoh-ed-ocikg 300 mcg-K 60 1 tablet PO DAILY 02/07/20 03/19/25 03/19/25 History mcg-lycop 600 mcg-lutein 300 mcg tablet (Centrum Silver Men) acetaminophen 500 mg tablet 1,000 mg PO Q6H PRN Pain (Scale 11/04/23 03/19/25 03/19/25 History Score 1-3) metformin 500 mg tablet 50 mg PO 1400 11/04/23 03/19/25 03/18/25 History ascorbic acid (vitamin C) 500 mg 500 mg PO HS 03/19/25 03/19/25 03/18/25 History capsule,extended release ferrous sulfate 325 mg (65 mg 325 mg PO HS 03/19/25 03/19/25 03/18/25 History iron) tablet (Iron (ferrous sulfate)) omeprazole magnesium 20 mg 20 mg PO DAILY PRN indigestion 03/19/25 03/19/25 03/19/25 History tablet,delayed release (Prilosec OTC) prednisolone acetate 1 % eye 1 drp EACH EYE 3XW 03/19/25 03/19/25 03/19/25 History drops,suspension tamsulosin 0.4 mg capsule 0.4 mg PO HS 03/19/25 03/19/25 03/18/25 History Allergies Allergy/AdvReac Type Severity Reaction Status Date / Time No Known Allergies Allergy Unknown Verified 03/19/25 14:42 Review of Systems Review of Systems: All systems reviewed & are unremarkable except as noted in HPI and below PMFSH Past Medical History Medical History Arthritis Compression fracture T12 DM2 (diabetes mellitus, type 2) Gout HTN (hypertension) with goal to be determined Hyperlipidemia Iron deficiency anemia Skin cancer Surgical History Surgical History History of cataract extraction with lens replacement History of cholecystectomy History of left shoulder replacement Family History Family History Father Acute myocardial infarction Gout Mother Cerebral brain hemorrhage Social History Social History Social History: The patient is and lives with his . She is a durable power document review attorney for healthcare. The patient desires to be a full code. The patient has 4 children. He worked for still [employer]. He works in the [employer] department. Lifelong nonsmoker. He used to drink but not anymore no marijuana are illegal substances. Smoking status: Never smoker Second hand tobacco smoke exposure: Yes Alcohol intake: former Substance use: never Substance use type: does not use Do You Feel Safe in your Home?: Yes Lack of Transportation: No Lack of Food: Never True Current Housing: I Have Housing Concerned About Future Housing: No Difficulty Paying Gas/Electric Bills: No Difficulty Paying for Meds: No Currently Unemployed: No Education: Trade/Vocational Certificate Difficulty w/ Childcare or Family Care: No Living arrangements: with family Occupation/Education: retired Gender identity (if verbalized by the patient): Male Spiritual care concerns: No Exam Const: General: healthy appearing and no acute distress Nutritional Appearance: well nourished Orientation/consciousness: patient oriented x3 Limitations: no limitations HENMT: Head: normal to inspection Eyes: Pupils: Equal, round and reactive pupils present EOM: EOMs intact bilaterally Neck: Neck: normal visual inspection Chest: Chest palpation & inspection: normal inspection of the chest Resp: Effort & Inspection: normal respiratory effort Auscultation: clear to auscultation bilaterally Cardio: Rate: regular rate Rhythm: regular rhythm GI: GI Palp: Yes Soft to palpation and No Tenderness to palpation present (GI) Auscultation: normal bowel sounds Skin: General skin exam: normal color Rashes: no rashes Wounds: no wounds Neuro: General: patient oriented x3, moves all extremities and no meningeal signs Cranial nerves: Yes Nystagmus not present Speech: normal speech Extrem: General: normal to inspection and no clubbing, cyanosis or edema Psych: Mental Status: mental status grossly normal Affect: normal affect Attitude: cooperative Course Vital Signs Vital signs: Vital Signs Temperature 97.6 F 03/19/25 14:29 Pulse Rate 76 03/19/25 14:29 Respiratory Rate 16 03/19/25 14:29 Blood Pressure 125/62 03/19/25 14:29 Pulse Oximetry 98 03/19/25 14:29 Oxygen Delivery Room Air 03/19/25 14:29 Temperature 97.8 F 03/19/25 16:15 Pulse Rate 73 03/19/25 19:18 Respiratory Rate 20 03/19/25 19:18 Blood Pressure 125/62 03/19/25 19:18 Pulse Oximetry 96 03/19/25 19:18 Oxygen Delivery Room Air 03/19/25 20:00 MDM - Chest Pain MDM Narrative Medical decision making narrative: Pt having inferior wall STEMI and ekg. supervisor [facility] activated. discussed with Dr umana will take to supervisor [facility]. give bolus of heparin and asa and will take to lab Lab Data 03/19/25 14:44 03/19/25 14:44 Labs: Lab Results 03/19/25 03/19/25 Range/Units 14:42 14:44 WBC 13.4 H (4.5-10.0) K/mm3 RBC 4.58 L (4.6-6.20) M/mm3 Hgb 13.9 L (14.0-18.0) g/dL Hct 43.4 (42.0-52.0) % MCV 94.8 (80-100) fl MCH 30.3 (26-34) pg MCHC 32.0 (32-36) g/dl RDW 13.7 (11.5-14.5) % Plt Count 237 (150-375) k/mm3 MPV 10.1 (7.4-10.4) fl Immature Gran % (Auto) 0.4 (0-0.5) % Neut % (Auto) 81.0 H (45.5-73.1) % Lymph % (Auto) 11.0 L (18.3-44.2) % [place] % (Auto) 6.5 (2.6-8.5) % Eos % (Auto) 0.7 (0-4.4) % Baso % (Auto) 0.4 (0.2-1.2) % Lymph # (Auto) 1.48 (0.9-3.2) K/mm3 [place] # (Auto) 0.9 H (0.1-0.6) K/mm3 Eos # (Auto) 0.1 (0-0.3) K/mm3 Baso # (Auto) 0.1 (0.0-0.1) K/mm3 Abs Immat Gran (auto) 0.05 H (0.00-0.031) K/mm3 Absolute Neuts (auto) 10.9 H (1.3-6.7) K/mm3 Absolute Nucleated RBC 0.000 (0.0-0.012) K/mm3 Nucleated RBC % 0.0 (0.0-0.2) % PT 13.5 (11.1-14.7) Seconds INR 1.0 APTT 20.7 L (22.3-36.8) Seconds Sodium 137 (137-145) mmol/L Potassium 5.4 H (3.4-5.0) mmol/L Chloride 105 (98-107) mmol/L Carbon Dioxide 25 (22-30) mmol/L Anion Gap 7 (4-12) mmol/L BUN 28 H (9-20) mg/dL Creatinine 1.39 H (0.7-1.3) mg/dL Estim Creat Clear Calc 37 ml/min Estimated GFR 49 L (59 - ) Glucose 168 H (65-110) mg/dL POC Capillary Glucose 167 H (65-105) mg/dl Calcium 10.1 (8.4-10.2) mg/dL Total Bilirubin 0.9 (0.2-1.3) mg/dL AST 36 (17-59) U/L ALT 22 (6-50) U/L Alkaline Phosphatase 70 (38-126) U/L Troponin I 0.124 H* (0.000-0.034) ng/mL Total Protein 7.6 (6.3-8.2) g/dL Albumin 4.2 (3.5-5.1) g/dL Lipase 83 (23-300) U/L Critical Care Time Critical Care Time Critical Care Time: Yes Total Critical Care Time: 30 Discharge Plan Discharge Clinical Impression: ST elevation (STEMI) myocardial infarction Patient Disposition: Still a Patient Condition: Stable
[2025-03-19] MEDS: ASPIRIN 81 MG CHEWABLE TABLET 324 MG PO (14:47)
[2025-03-19 14:50] LABS: Hematocrit 43.4 % (42.0-52.0); Hemoglobin 13.9 g/dL (14.0-18.0); Immature Granulocyte Percent A 0.4 % (0-0.5); Lymphocytes Absolute Auto 1.48 K/mm3 (0.9-3.2); Mean Corpuscular HGB Conc 32.0 g/dl (32-36); Mean Corpuscular Hemoglobin 30.3 pg (26-34); Mean Corpuscular Volume 94.8 fl (80-100); Nucleated Red Blood Cells Absolute Auto 0.000 K/mm3 (0.0-0.012); Nucleated Red Blood Cells Perc 0.0 % (0.0-0.2); Platelet Count Result 237 k/mm3 (150-375); Red Blood Count 4.58 M/mm3 (4.6-6.20); White Blood Count 13.4 K/mm3 (4.5-10.0)
--- NOTE | 2025-03-19 14:52 | P.CONCA_ITS ---
Assessment and Plan Assessment and plan (1) ST elevation myocardial infarction (STEMI) of inferior wall: Code(s): I21.19 - ST elevation (STEMI) myocardial infarction involving other coronary artery of inferior wall Status: Acute Plan Inferior ST-elevation ID Hypertension Hyperlipidemia Type 2 diabetes mellitus Plan: Plan for emergent cardiac catheterization for primary PCI given inferior ST- elevation ID with ongoing chest pain Heparin bolus and drip Aspirin 325 mg once followed by 81 mg daily Atorvastatin 80 mg daily Check FLP TTE Check and replace electrolytes to keep potassium greater than 4 and magnesium greater than 2 Trend troponin to peak Check NT proBNP Chest x-ray Hold lisinopril for cardiac catheterization History of Present Illness History of Present Illness Consult date/time: 03/19/25 14:52 Reason For Visit: chest pain Narrative: 80-year-old male with history of hypertension, hyperlipidemia, type 2 diabetes mellitus, gout, iron deficiency anemia, arthritis, skin cancer presents with chief complaint of left-sided pressure-like chest pain since an hour and a half. Pain radiates to his left arm and is of intensity 9 x 10. After receiving aspirin the intensity is down to 6/10. No shortness of breath, diaphoresis, dizziness, lightheadedness, presyncope, syncope, recent leg swelling, recent weight gain, orthopnea, PND. EKG shows inferior ST elevations and reciprocal ST depressions in the lateral leads consistent with inferior STEMI. Workup: WBC: 13.4 Hemoglobin: 13.9 BMP: Pending Troponin: Pending Review of Systems 2 Review of Systems: Complete review of systems was performed and pertinent positives are documented in the [facility] Past Medical History Medical History Arthritis Compression fracture T12 DM2 (diabetes mellitus, type 2) Gout HTN (hypertension) with goal to be determined Hyperlipidemia Iron deficiency anemia Skin cancer Surgical History Surgical History History of cataract extraction with lens replacement History of cholecystectomy History of left shoulder replacement Family History Family History Father Acute myocardial infarction Gout Mother Cerebral brain hemorrhage Social History Social History Social History: The patient is and lives with his . She is a durable power title attorney for healthcare. The patient desires to be a full code. The patient has 4 children. He worked for still [employer]. He works in the [employer] department. Lifelong nonsmoker. He used to drink but not anymore no marijuana are illegal substances. Smoking status: Never smoker Alcohol intake: never Substance use: never Substance use type: does not use Do You Feel Safe in your Home?: Yes Lack of Transportation: No Lack of Food: Never True Current Housing: I Have Housing Concerned About Future Housing: No Difficulty Paying Gas/Electric Bills: No Difficulty Paying for Meds: No Currently Unemployed: No Education: Trade/Vocational Certificate Difficulty w/ Childcare or Family Care: No Living arrangements: with family Occupation/Education: retired Gender identity (if verbalized by the patient): Male Spiritual care concerns: No Meds Home Medications and Allergies Home Medications ?Medication ?Instructions ?Recorded ?Confirmed ?Type atorvastatin 20 mg tablet 20 mg PO 3XW 02/07/20 12/28/23 History lisinopril 20 mg tablet 20 mg PO DAILY 02/07/20 12/28/23 History gtzpaumq-sf-pbmgn 300 mcg-K 60 1 tablet PO DAILY 02/07/20 12/28/23 History mcg-lycop 600 mcg-lutein 300 mcg tablet (Centrum Silver Men) acetaminophen 500 mg tablet 1,000 mg PO Q6H PRN Pain (Scale 11/04/23 12/28/23 History Score 1-3) metformin 500 mg tablet 50 mg PO DAILY 11/04/23 12/28/23 History ascorbic acid (vitamin C) 500 mg 500 mg PO Q12H #60 caps 11/06/23 12/28/23 Rx capsule,extended release (Vitamin C) ferrous sulfate 325 mg (65 mg 325 mg PO BID #60 tabs 11/06/23 12/28/23 Rx iron) tablet (Iron (ferrous sulfate)) pantoprazole 40 mg tablet,delayed 40 mg PO QAM #30 tabs 04/11/24 Rx release Allergies Allergy/AdvReac Type Severity Reaction Status Date / Time No Known Allergies Allergy Unknown Verified 03/19/25 14:42 Vital Signs Vital Signs - 24 hr 03/19/25 14:29 03/19/25 14:41 03/19/25 14:42 Temperature 36.4 C Pulse Rate 76 80 77 Respiratory Rate 16 20 Blood Pressure 125/62 144/78 H Pulse Oximetry 98 98 Oxygen Delivery Room Air Exam 2 Narrative: General: Alert oriented x3, no acute distress Neck: Supple, no JVD Chest: Bilaterally clear to auscultation, no rales or rhonchi Cardiac: S1, S2 +, regular rate, regular rhythm, no murmurs or rubs Extremities: No pedal edema, no skin rash Neurologic: Alert and oriented x3, no focal neurological deficits Results Labs and Meds 03/19/25 14:44 03/19/25 14:44 Lab results: CBC 03/19/25 Range/Units 14:44 WBC 13.4 H (4.5-10.0) K/mm3 RBC 4.58 L (4.6-6.20) M/mm3 Hgb 13.9 L (14.0-18.0) g/dL Hct 43.4 (42.0-52.0) % Plt Count 237 (150-375) k/mm3 Lymph # (Auto) 1.48 (0.9-3.2) K/mm3 [place] # (Auto) 0.9 H (0.1-0.6) K/mm3 Eos # (Auto) 0.1 (0-0.3) K/mm3 Baso # (Auto) 0.1 (0.0-0.1) K/mm3 Patient Weight 03/19/25 23:59 Weight 77.2 kg
--- NOTE | 2025-03-19 14:58 | P.SEDATION_ITS ---
Moderate Sedation Note-Pt Data Patient Data Allergies Allergy/AdvReac Type Severity Reaction Status Date / Time No Known Allergies Allergy Unknown Verified 03/19/25 14:42 Home Medications ?Medication ?Instructions ?Recorded ?Confirmed ?Type atorvastatin 20 mg tablet 20 mg PO 3XW 02/07/20 12/28/23 History lisinopril 20 mg tablet 20 mg PO DAILY 02/07/20 12/28/23 History obqeubgg-bs-viexc 300 mcg-K 60 1 tablet PO DAILY 02/07/20 12/28/23 History mcg-lycop 600 mcg-lutein 300 mcg tablet (Centrum Silver Men) acetaminophen 500 mg tablet 1,000 mg PO Q6H PRN Pain (Scale 11/04/23 12/28/23 History Score 1-3) metformin 500 mg tablet 50 mg PO DAILY 11/04/23 12/28/23 History ascorbic acid (vitamin C) 500 mg 500 mg PO Q12H #60 caps 11/06/23 12/28/23 Rx capsule,extended release (Vitamin C) ferrous sulfate 325 mg (65 mg 325 mg PO BID #60 tabs 11/06/23 12/28/23 Rx iron) tablet (Iron (ferrous sulfate)) pantoprazole 40 mg tablet,delayed 40 mg PO QAM #30 tabs 04/11/24 Rx release Sedation/Anesthesia: No previous sedation/anesthesia problems (including family history). [facility] Past Medical History Medical History Arthritis Compression fracture T12 DM2 (diabetes mellitus, type 2) Gout HTN (hypertension) with goal to be determined Hyperlipidemia Iron deficiency anemia Skin cancer Surgical History Surgical History History of cataract extraction with lens replacement History of cholecystectomy History of left shoulder replacement Family History Family History Father Acute myocardial infarction Gout Mother Cerebral brain hemorrhage Social History Social History Social History: The patient is and lives with his . She is a durable power temporary administrative assistant for healthcare. The patient desires to be a full code. The patient has 4 children. He worked for still [employer]. He works in the maintenance department. Lifelong nonsmoker. He used to drink but not anymore no marijuana are illegal substances. Smoking status: Never smoker Alcohol intake: never Substance use: never Substance use type: does not use Do You Feel Safe in your Home?: Yes Lack of Transportation: No Lack of Food: Never True Current Housing: I Have Housing Concerned About Future Housing: No Difficulty Paying Gas/Electric Bills: No Difficulty Paying for Meds: No Currently Unemployed: No Education: Trade/Vocational Certificate Difficulty w/ Childcare or Family Care: No Living arrangements: with family Occupation/Education: retired Gender identity (if verbalized by the patient): Male Spiritual care concerns: No Mod Sed Physical Exam Physical Exam Pre Procedural Exam: Normal: Lungs, Heart Rate and Heart Rhythm Hours since solid foods: 6 Hours since liquid intake: 6 Mallampati Classification: class II Internal Medicine - PN: Obj Da Vital Signs Vital Signs: Vital Signs - 24 hr 03/19/25 14:29 03/19/25 14:41 03/19/25 14:42 Temperature 36.4 C Pulse Rate 76 80 77 Respiratory Rate 16 20 Blood Pressure 125/62 144/78 H Pulse Oximetry 98 98 Oxygen Delivery Room Air Labs 03/19/25 14:44 03/19/25 14:44 Labs: Laboratory Results - last 24 hr 03/19/25 14:44 WBC 13.4 H RBC 4.58 L Hgb 13.9 L Hct 43.4 MCV 94.8 MCH 30.3 MCHC 32.0 RDW 13.7 Plt Count 237 MPV 10.1 Immature Gran % (Auto) 0.4 Neut % (Auto) 81.0 H Lymph % (Auto) 11.0 L [place] % (Auto) 6.5 Eos % (Auto) 0.7 Baso % (Auto) 0.4 Lymph # (Auto) 1.48 [place] # (Auto) 0.9 H Eos # (Auto) 0.1 Baso # (Auto) 0.1 Abs Immat Gran (auto) 0.05 H Absolute Neuts (auto) 10.9 H Absolute Nucleated RBC 0.000 Nucleated RBC % 0.0 ASA Classification/Sedation ASA Classification/Sedation ASA Class: IV Emergent: Yes Risks: Risks, benefits and alternatives explained and patient/family accepted plan for sedation. Patient re-evaluated immediately prior to sedation.
--- NOTE | 2025-03-19 14:59 | WPDCARDPROC ---
Cardiac Cath Procedure Note Date of procedure:: 03/19/25 Performing physician:: Gladys Verde MD Indication:: Inferior ST-elevation PR Brief clinical history:: 80-year-old male with medical history of hypertension, hyperlipidemia, type 2 diabetes mellitus, arthritis, skin cancer, gout presents with left-sided pressure-like chest pain with radiation to his arm since 1-1/[address] elevations in inferior leads and reciprocal ST depressions in lateral leads. Procedure Procedure performed:: 1. Right radial artery access 2. Selective left and right coronary angiogram 3. Roxanne guided PCI to mid RCA Sedation/Medication given:: CATHETERIZATION LABORATORY REPORT Procedure Date: 03/19/2025 Anesthesia: Versed and Fentanyl were ordered and given in my presence at 3:13 p.m., procedure ended at 3:44 p.m.. Supervision of nurse monitored moderate sedation with Versed and Fentanyl was provided for 31 minutes. Pre-op Diagnosis: Inferior STEMI Post-op Diagnosis: Inferior STEMI status post successful I was guided PCI to mid RCA with 4.0 mm X 30 mm Medtronic kristan Duchesne FLACO Procedure(s): Coronary angiography Access Site: Right radial artery Brief History and Clinical Indications: All risks, benefits and alternatives to left heart catheterization with or without percutaneous coronary intervention was discussed at length with the patient. Risk of complications including but not limited to bleeding, infection, arrhythmia, stroke, worsening kidney function, blood loss, groin hematoma, limb loss, emergency coronary artery bypass grafting, and even were discussed with the patient and all questions were answered. The patient understood and wished to proceed. Time out called, patient name, date of , medical record number, allergies, procedure performed, identify Commission Auditor, patient and staff member concurred with accurate data, procedure carried on. Findings: LEFT HEART CATHETERIZATION FINDINGS: 1. Left main: It appears that the LAD and LCX have separate ostia or a very short LM. 2. Left anterior descending: The mid LAD has 50-60% stenosis. Rest of the LAD and diagonal branches have mild luminal irregularities. 3. Left circumflex: The left circumflex artery has mild luminal irregularities without any significant obstructive angiographic disease. It gives off a large bifurcating OM branch which has 30% diffuse stenosis in the midportion. 4. Right coronary artery: The proximal RCA has 30% diffuse stenosis. The mid RCA has 90% thrombotic stenosis and this is the culprit for patient's presentation. The RCA is the dominant vessel. RPDA and RPLA are without any significant obstructive angiographic disease. 5. Left ventricle: A. End-diastolic pressure-not measured. B. LV gram deferred. 6. Opening AO pressure 102/76/89 and closing AO pressure 126/74/90 7 mm Hg Description of Procedure: This is an emergent cardiac catheterization and primary PCI for inferior STEMI. Patient transferred to warehouse general laborer room. Prepped and draped in usual sterile fashion. 2% lidocaine injected subcutaneously in right wrist area. 22-gauge venipuncture catheter used to access the right radial artery with the Seldinger technique. 6-FR slender sheath placed in right radial artery. Nitroglycerin 200mcg, and Heparin 5000U was given intraarterial through the sheath. J wire advanced under fluoroscopy Five Lithuanian JL 3.5 diagnostic catheter engaged Left Main Coronary Artery. 6 Lithuanian JR4 for guide catheter engaged Right Coronary Artery Multiple orthogonal angiogram obtained and reviewed Procedure Description for PCI: Heparin was used for anticoagulation (ACT maintained above 250) Patient loaded with heparin at 70 units/kg. 6F JR4 guide catheter was used to intubate the RCA. 0.014 runthrough coronary wire was passed in to the distal RPLA. The lesion was pre-dilated with a 2 point mm x 15 mm balloon inflated to high RADHA. A 4.0 mm x 30 mm Medtronic kristan Duchesne FLACO was successfully deployed into mid RCA at nominal pressure. The stent was post-dilated with the stent balloon inflated to high RADHA. An [place] IVUS catheter was advanced into distal RCA and a pullback was performed to confirm good stent opposition and no immediate complications. Intracoronary NTG was administered Follow-up angiograms showed an excellent result Coronary wire and guide-catheter were removed Pre-procedure - EDMOND 3 flow. Post-procedure - EDMOND 3 flow. No angiographic complications identified. Hemostasis was achieved by application of TR band. Assessment: Inferior STEMI status post successful IVUS guided PPCI to 90% thrombotic stenosis of mid RCA with 4.2 mm X 30 mm Medtronic kristan Duchesne FLACO Post Operative Condition: Stable No significant blood loss Disposition: ICU Plan: The patient will be monitored in the recovery area. DAPT for 1 year with aspirin 81 mg daily and Plavix 75 mg daily followed by ASA 81 mg daily indefinitely. Atorvastatin 80 mg daily. Check FLP. TTE. Check and replace electrolytes as needed to keep potassium greater than 4 and magnesium greater than 2. IV fluids normal saline at 100 mL/hour for 1 L. The above findings were discussed with the ICU physician. Continue aggressive medical therapy and risk factor modification. Cardiac rehab at 1 month. Outpatient Cardiology follow-up in 1 month post discharge.
[2025-03-19 15:03] LABS: INR 1.0; Prothrombin Time 13.5 Seconds (11.1-14.7)
[2025-03-19 15:09] LABS: Alanine Aminotransferase 22 U/L (6-50); Albumin Level 4.2 g/dL (3.5-5.1); Alkaline Phosphatase 70 U/L (38-126); Anion Gap 7 mmol/L (4-12); Aspartate Amino Transferase 36 U/L (17-59); Bilirubin,Total 0.9 mg/dL (0.2-1.3); Blood Urea Nitrogen 28 mg/dL (9-20); Calcium 10.1 mg/dL (8.4-10.2); Carbon Dioxide 25 mmol/L (22-30); Chloride 105 mmol/L (98-107); Estimated CRCL calculation 37 ml/min; Estimated Glomerular Filt Rate 49; Glucose 168 mg/dL (65-110); Lipase 83 U/L (23-300); Potassium 5.4 mmol/L (3.4-5.0); Sodium 137 mmol/L (137-145); Total Protein 7.6 g/dL (6.3-8.2)
[2025-03-19 15:22] LABS: Troponin I 0.124 ng/mL (0.000-0.034)
[2025-03-19 15:50] LABS: Partial Thromboplastin Time 20.7 Seconds (22.3-36.8)
--- NOTE | 2025-03-19 16:09 | ADMGEN ---
This patient, Priscilla Dennis, was admitted to Intensive Care Unit-8. Patient/family oriented to hospital policies and general routines including ID bracelet, bed and alarms, visiting hours, pain management, procedures, bathroom and other care routines, personal items, smoking policy, room service/diet, and visiting hours. Information on how to activate the Rapid Response Team has been discussed. Patient/Family are encouraged to report perceived risks to care and to ask questions if they do not understand what they are told or what they should do.
[2025-03-19 17:50] LABS: MRSA (PCR) NOT DETECTED (NOT DETECTE)
[2025-03-19 18:09] LABS: Partial Thromboplastin Time > 200.0 Seconds (22.3-36.8)
[2025-03-19] MEDS: SODIUM CHLORIDE 0.9% IV 1,000 ML 100 ML IV CONT (18:35)
[2025-03-19] MEDS: ASCORBIC ACID 500 MG TABLET PO (20:50)
[2025-03-19] MEDS: TAMSULOSIN HCL 0.4 MG CAPSULE PO (20:50)
[2025-03-19] MEDS: FERROUS SULFATE 325 MG TABLET DR BY MOUTH (20:50)
[2025-03-19 20:54] LABS: Partial Thromboplastin Time 58.7 Seconds (22.3-36.8)
[2025-03-19 23:37] LABS: Partial Thromboplastin Time 24.9 Seconds (22.3-36.8)
[2025-03-20] VITALS (19 sets, daily range): BP systolic 107–147; BP diastolic 63–90; PULSE 60–92; RESP 14–22; TEMP 36.2–36.9; O2SAT 94–99
[2025-03-20 08:34] LABS: Hematocrit 44.0 % (42.0-52.0); Hemoglobin 13.8 g/dL (14.0-18.0); Immature Granulocyte Percent A 0.5 % (0-0.5); Lymphocytes Absolute Auto 1.46 K/mm3 (0.9-3.2); Mean Corpuscular HGB Conc 31.4 g/dl (32-36); Mean Corpuscular Hemoglobin 30.1 pg (26-34); Mean Corpuscular Volume 95.9 fl (80-100); Nucleated Red Blood Cells Absolute Auto 0.000 K/mm3 (0.0-0.012); Nucleated Red Blood Cells Perc 0.0 % (0.0-0.2); Platelet Count Result 222 k/mm3 (150-375); Red Blood Count 4.59 M/mm3 (4.6-6.20); White Blood Count 10.1 K/mm3 (4.5-10.0)
[2025-03-20 08:51] LABS: Alanine Aminotransferase 29 U/L (6-50); Albumin Level 3.9 g/dL (3.5-5.1); Alkaline Phosphatase 68 U/L (38-126); Anion Gap 10 mmol/L (4-12); Aspartate Amino Transferase 58 U/L (17-59); Bilirubin,Total 1.1 mg/dL (0.2-1.3); Blood Urea Nitrogen 21 mg/dL (9-20); Calcium 9.6 mg/dL (8.4-10.2); Carbon Dioxide 21 mmol/L (22-30); Chloride 106 mmol/L (98-107); Estimated CRCL calculation 44 ml/min; Estimated Glomerular Filt Rate > 60; Glucose 258 mg/dL (65-110); Magnesium 1.9 mg/dL (1.6-2.3); Potassium 4.8 mmol/L (3.4-5.0); Sodium 137 mmol/L (137-145); Total Protein 7.1 g/dL (6.3-8.2)
[2025-03-20] MEDS: OPTI-GEN TAB 1 TABLET PO (09:29)
[2025-03-20] MEDS: ATORVASTATIN 40 MG TABLET 80 MG PO (09:29)
[2025-03-20] MEDS: CLOPIDOGREL BISULFATE 75 MG TABLET PO (09:29)
[2025-03-20] MEDS: ASPIRIN 81 MG ENTERIC TABLET PO (09:29)
--- NOTE | 2025-03-20 11:44 | PM.PNCARD ---
Progress Note: A&P Assessment and Plan (1) ST elevation myocardial infarction (STEMI) of inferior wall: Code(s): I21.19 - ST elevation (STEMI) myocardial infarction involving other coronary artery of inferior wall Status: Acute (2) Hyperlipidemia: Code(s): E78.5 - Hyperlipidemia, unspecified Status: Chronic (3) HTN (hypertension) with goal to be determined: Code(s): I10 - Essential (primary) hypertension Status: Chronic (4) DM2 (diabetes mellitus, type 2): Code(s): E11.9 - Type 2 diabetes mellitus without complications Status: Chronic (5) Iron deficiency anemia: Code(s): D50.9 - Iron deficiency anemia, unspecified Status: Chronic Plan -Inferior STEMI status post successful I was guided PCI to mid RCA with 4.0 mm X 30 mm [employer] [place] FLACO Preserved LVEF of 65-70% and no significant valvular pathology -Hypertension-controlled -Hyperlipidemia-on statin -Type 2 diabetes mellitus Plan: -Patient reports resolution of chest pain after primary PCI. No electrical instability. Blood pressure is stable. Creatinine 1.15 today from 1.39 yesterday. Hemoglobin is 13. No issues tolerating DAPT -Continue to watch on telemetry -Continue DAPT with aspirin 81 mg daily and Plavix 75 mg daily for 1 year followed by aspirin 81 mg daily indefinitely -Continue Atorvastatin 80 mg daily -Continue lisinopril 20 mg daily -Aggressive risk factor control including blood pressure, lipids, blood sugars -Check and replace electrolytes to keep potassium greater than 4 and magnesium greater than 2 -Cardiac rehab at 1 month Subjective Date/time seen: 03/20/25 11:44 Interval history: Reason for encounter: Inferior STEMI status post successful IVUS guided primary PCI to mid RCA with a 4.0 mm X 30 mm [employer] [place] FLACO Interval history: Patient denies any chest pain, shortness of breath, dizziness, lightheadedness, palpitations, fevers, chills, nausea, abdominal pain. He reports some discomfort in his back which is chronic due to which he cannot lay or sit in the same position for prolonged periods of time. His creatinine was 1.39 yesterday and 1.15 today PE Review of Systems Cardiovascular: Comments: As mentioned in the HPI Respiratory: Comments: As mentioned in the HPI Exam Narrative: General: Alert oriented x3, no acute distress Neck: Supple, no JVD Chest: Bilaterally clear to auscultation, no rales or rhonchi Cardiac: S1, S2 +, regular rate, regular rhythm, no murmurs or rubs Extremities: No pedal edema, no skin rash Neurologic: Alert and oriented x3, no focal neurological deficits Objective Data Vital Signs Vital Signs: Vital Signs - 24 hr 03/19/25 14:29 03/19/25 14:41 03/19/25 14:42 Temperature 36.4 C Pulse Rate 76 80 77 Respiratory Rate 16 20 Blood Pressure 125/62 144/78 H Pulse Oximetry 98 98 Oxygen Delivery Room Air 03/19/25 14:51 03/19/25 16:15 03/19/25 16:15 Temperature 36.6 C Pulse Rate 72 73 73 Respiratory Rate 20 19 19 Blood Pressure 135/73 119/61 Pulse Oximetry 98 97 97 Oxygen Delivery Room Air 03/19/25 16:30 03/19/25 16:45 03/19/25 17:00 Temperature Pulse Rate 70 67 71 Respiratory Rate 15 16 17 Blood Pressure 109/60 106/59 L 111/66 Pulse Oximetry 98 98 97 Oxygen Delivery 03/19/25 17:15 03/19/25 17:30 03/19/25 17:45 Temperature Pulse Rate 69 67 65 Respiratory Rate 15 15 18 Blood Pressure 123/65 117/61 Pulse Oximetry 97 96 96 Oxygen Delivery 03/19/25 18:00 03/19/25 18:00 03/19/25 18:00 Temperature Pulse Rate 68 68 68 Respiratory Rate 17 17 Blood Pressure 131/65 131/65 Pulse Oximetry 96 96 Oxygen Delivery 03/19/25 18:15 03/19/25 18:30 03/19/25 18:45 Temperature Pulse Rate 75 62 67 Respiratory Rate 20 17 16 Blood Pressure 128/70 133/65 127/63 Pulse Oximetry 98 100 98 Oxygen Delivery 03/19/25 19:00 03/19/25 19:18 03/19/25 20:00 Temperature Pulse Rate 74 73 Respiratory Rate 19 20 Blood Pressure 129/63 125/62 Pulse Oximetry 97 96 Oxygen Delivery Room Air 03/19/25 20:00 03/19/25 20:00 03/19/25 20:10 Temperature 36.4 C Pulse Rate 78 77 75 Respiratory Rate 21 H 19 Blood Pressure 134/62 127/59 L Pulse Oximetry 97 96 Oxygen Delivery 03/19/25 21:10 03/19/25 22:00 03/19/25 22:00 Temperature 36.3 C L Pulse Rate 63 62 62 Respiratory Rate 16 16 Blood Pressure 129/65 141/67 H Pulse Oximetry 97 97 Oxygen Delivery 03/19/25 22:10 03/20/25 00:00 03/20/25 00:00 Temperature Pulse Rate 62 68 Respiratory Rate 16 20 Blood Pressure 141/67 H 147/75 H Pulse Oximetry 97 99 Oxygen Delivery Room Air 03/20/25 00:00 03/20/25 00:00 03/20/25 00:25 Temperature 36.2 C L Pulse Rate 67 65 67 Respiratory Rate 19 20 Blood Pressure 147/75 H 140/69 Pulse Oximetry 96 98 Oxygen Delivery 03/20/25 00:45 03/20/25 01:05 03/20/25 01:35 Temperature Pulse Rate 65 69 66 Respiratory Rate 14 17 15 Blood Pressure 133/66 136/67 129/67 Pulse Oximetry 98 98 98 Oxygen Delivery 03/20/25 02:00 03/20/25 02:00 03/20/25 04:00 Temperature 36.7 C Pulse Rate 68 68 Respiratory Rate 16 Blood Pressure 127/63 Pulse Oximetry 99 Oxygen Delivery Room Air 03/20/25 04:00 03/20/25 04:00 03/20/25 06:00 Temperature 36.6 C Pulse Rate 65 65 60 Respiratory Rate 16 Blood Pressure 146/65 H Pulse Oximetry 97 Oxygen Delivery 03/20/25 06:00 03/20/25 07:48 03/20/25 09:37 Temperature 36.9 C 36.7 C Pulse Rate 60 92 88 Respiratory Rate 14 17 15 Blood Pressure 131/67 143/65 H 125/63 Pulse Oximetry 97 98 96 Oxygen Delivery 03/20/25 10:00 Temperature Pulse Rate 80 Respiratory Rate 18 Blood Pressure 107/65 Pulse Oximetry 95 Oxygen Delivery Intake/Output Intake/Output: Intake & Output 03/17/25 03/18/25 03/19/25 03/20/25 23:59 23:59 23:59 23:59 Intake Total 600 1540 Output Total 1750 Balance 600 -210 Meds/Results Medications: Active Medications Generic Name Dose Route Start Last Admin Trade Name Freq PRN Reason Stop Dose Admin Ascorbic Acid 500 mg 03/19/25 21:00 03/19/25 20:50 Ascorbic Acid 500 Mg Tablet PO 500 mg HS REYES Administration Aspirin 81 mg 03/20/25 09:00 03/20/25 09:29 Aspirin 81 Mg Enteric Tablet PO 81 mg QAM REYES Administration Atorvastatin Calcium 80 mg 03/20/25 09:00 03/20/25 09:29 Atorvastatin 40 Mg Tablet PO 80 mg DAILY REYES Administration Clopidogrel Bisulfate 75 mg 03/20/25 09:00 03/20/25 09:29 Clopidogrel Bisulfate 75 Mg Tablet PO 75 mg QAM REYES Administration Ferrous Sulfate 325 mg 03/19/25 21:00 03/19/25 20:50 Ferrous Sulfate [address] BY MOUTH 325 mg HS [facility] Administration Lisinopril 20 mg 03/20/25 09:00 03/20/25 09:30 Lisinopril 20 Mg Tablet PO 20 mg DAILY REYES Administration Multivitamins/Minerals 1 tablet 03/20/25 09:00 03/20/25 09:29 Opti-Gen Tab PO 1 tablet DAILY REYES Administration Pantoprazole Sodium 40 mg 03/19/25 16:51 Pantoprazole 40 Mg Tablet PO DAILY PRN indigestion Perflutren Lipid Microsphere 0 ml 03/19/25 16:33 Perflutren Lipid Microspheres 1.5 Ml Vial Diluted To 10 Ml Total Volume IV PUSH 03/22/25 16:34 ONCE PRN adequate visualization Protocol Prednisolone Acetate 1 drop 03/21/25 16:50 Prednisolone Acetate 1% Ophth 5 Ml EACH EYE [id number] [facility] Tamsulosin HCl 0.4 mg 03/19/25 21:00 03/19/25 20:50 Tamsulosin Hcl 0.4 Mg Capsule PO 0.4 mg HS REYES Administration Labs Labs: Laboratory Results - last 24 hr 03/19/25 03/19/25 03/19/25 14:42 14:44 15:44 WBC 13.4 H RBC 4.58 L Hgb 13.9 L Hct 43.4 MCV 94.8 MCH 30.3 MCHC 32.0 RDW 13.7 Plt Count 237 MPV 10.1 Immature Gran % (Auto) 0.4 Neut % (Auto) 81.0 H Lymph % (Auto) 11.0 L [place] % (Auto) 6.5 Eos % (Auto) 0.7 Baso % (Auto) 0.4 Lymph # (Auto) 1.48 [place] # (Auto) 0.9 H Eos # (Auto) 0.1 Baso # (Auto) 0.1 Abs Immat Gran (auto) 0.05 H Absolute Neuts (auto) 10.9 H Absolute Nucleated RBC 0.000 Nucleated RBC % 0.0 PT 13.5 INR 1.0 APTT 20.7 L Activ Coag Time Kaolin 216 H Sodium 137 Potassium 5.4 H Chloride 105 Carbon Dioxide 25 Anion Gap 7 BUN 28 H Creatinine 1.39 H Estim Creat Clear Calc 37 Estimated GFR 49 L Glucose 168 H POC Capillary Glucose 167 H Calcium 10.1 Phosphorus Magnesium Total Bilirubin 0.9 AST 36 ALT 22 Alkaline Phosphatase 70 Troponin I 0.124 H* Total Protein 7.6 Albumin 4.2 Lipase 83 Nasal MRSA (PCR) 03/19/25 03/19/25 03/19/25 16:33 17:07 20:22 WBC RBC Hgb Hct MCV MCH MCHC RDW Plt Count MPV Immature Gran % (Auto) Neut % (Auto) Lymph % (Auto) [place] % (Auto) Eos % (Auto) Baso % (Auto) Lymph # (Auto) [place] # (Auto) Eos # (Auto) Baso # (Auto) Abs Immat Gran (auto) Absolute Neuts (auto) Absolute Nucleated RBC Nucleated RBC % PT INR APTT > 200.0 H* 58.7 H Activ Coag Time Kaolin Sodium Potassium Chloride Carbon Dioxide Anion Gap BUN Creatinine Estim Creat Clear Calc Estimated GFR Glucose POC Capillary Glucose Calcium Phosphorus Magnesium Total Bilirubin AST ALT Alkaline Phosphatase Troponin I Total Protein Albumin Lipase Nasal MRSA (PCR) Not detected 03/19/25 03/20/25 23:21 08:26 WBC 10.1 H RBC 4.59 L Hgb 13.8 L Hct 44.0 MCV 95.9 MCH 30.1 MCHC 31.4 L RDW 13.8 Plt Count 222 MPV 10.0 Immature Gran % (Auto) 0.5 Neut % (Auto) 77.8 H Lymph % (Auto) 14.4 L [place] % (Auto) 5.8 Eos % (Auto) 1.0 Baso % (Auto) 0.5 Lymph # (Auto) 1.46 [place] # (Auto) 0.6 Eos # (Auto) 0.1 Baso # (Auto) 0.1 Abs Immat Gran (auto) 0.05 H Absolute Neuts (auto) 7.9 H Absolute Nucleated RBC 0.000 Nucleated RBC % 0.0 PT INR APTT 24.9 Activ Coag Time Kaolin Sodium 137 Potassium 4.8 Chloride 106 Carbon Dioxide 21 L Anion Gap 10 BUN 21 H Creatinine 1.15 Estim Creat Clear Calc 44 Estimated GFR > 60 Glucose 258 H POC Capillary Glucose Calcium 9.6 Phosphorus 2.9 Magnesium 1.9 Total Bilirubin 1.1 AST 58 ALT 29 Alkaline Phosphatase 68 Troponin I Total Protein 7.1 Albumin 3.9 Lipase Nasal MRSA (PCR) Imaging My impression: TTE: Normal LVEF of 65-70%, diastolic dysfunction grade 1. No significant valvular pathology.
--- NOTE | 2025-03-20 12:25 | P.CONIN_ITS ---
Assessment and Plan Assessment and plan (1) ST elevation myocardial infarction (STEMI) of inferior wall: Code(s): I21.19 - ST elevation (STEMI) myocardial infarction involving other coronary artery of inferior wall Status: Acute Assessment and Plan: 03/19: Patient presented with chest pain, EKG showed acute inferior ST- elevation [place]. status post PTCA/PCI with FLACO x1 to mid RCA -continue dual antiplatelet therapy, aspirin, Plavix -continue atorvastatin -continue lisinopril -cardiac rehab (2) HTN (hypertension) with goal to be determined: Code(s): I10 - Essential (primary) hypertension Status: Chronic Assessment and Plan: Continue lisinopril (3) DM2 (diabetes mellitus, type 2): Code(s): E11.9 - Type 2 diabetes mellitus without complications Status: Chronic Assessment and Plan: Continues Accu-Cheks and sliding scale insulin -prior to admission on metformin, will hold for now (4) Hyperlipidemia: Code(s): E78.5 - Hyperlipidemia, unspecified Status: Chronic Assessment and Plan: Continue Atorvastatin Plan DVT prophylaxis: Status post cardiac catheterization Stress ulcer prophylaxis: Not indicated Nutrition: Heart healthy diet Code Status: Full code Critical Care Time Spent: 46 minutes Due to a high probability of clinically significant, life threatening deterioration, the patient required my highest level of preparedness to intervene emergently and I personally spent this critical care time directly and personally managing the patient. This critical care time included obtaining a history; examining the patient; pulse oximetry; ordering and review of studies; arranging urgent treatment with development of a management plan; evaluation of patient's response to treatment; frequent reassessment; and discussions with other providers. It was exclusive of separately billable procedures and treating other patients and teaching time. Please see Assessment and Plan section and the rest of the note for further information on patient assessment and treatment This dictation may have been done utilizing a voice recognition system. Attempts have been made to correct errors. However, there may be uncorrected grammatical, spelling, and recognitions errors present. [employer] Consult Note Consult date: 03/20/25 Reason for consult: Inferior wall ST-elevation myocardial infarction status post PTCA/PCI with FLACO x1 to mid RCA HPI: Priscilla Dennis is a 80 year old male with past medical history of hypertension, hyperlipidemia, type 2 diabetes, gout, iron deficiency anemia, arthritis, history of skin cancer presented the ED on 03/19/2025 with complains of left- sided chest pain that started 90 minutes prior to arrival to the ER. Substernal chest pain that will radiate to the jaw, neck and left arm. No shortness of breath, diaphoresis, dizziness, lightheadedness. EKG showed inferior ST elevations and reciprocal ST depressions in lateral leads consistent with inferior STEMI. First patient was taken to cardiac pharmaceutical laboratory technician status post PTCA/PCI with FLACO x1 to mid RCA. LV gram deferred. Patient was transferred to the ICU for further management Patient seen and examined this morning in the ICU, is awake, alert, sitting up in chair. Denies any chest pain, shortness of breath, nausea, vomiting. Hemodynamically stable, adequate urine output, afebrile Review of Systems 2 Review of Systems: All systems reviewed & are unremarkable except as noted in HPI and below PMFSH Past Medical History Medical History Arthritis Compression fracture T12 DM2 (diabetes mellitus, type 2) Gout HTN (hypertension) with goal to be determined Hyperlipidemia Iron deficiency anemia Skin cancer Surgical History Surgical History History of cataract extraction with lens replacement History of cholecystectomy History of left shoulder replacement Family History Family History Father Acute myocardial infarction Gout Mother Cerebral brain hemorrhage Social History Social History Social History: The patient is and lives with his . She is a durable power transactional attorney for healthcare. The patient desires to be a full code. The patient has 4 children. He worked for still [employer]. He works in the maintenance department. Lifelong nonsmoker. He used to drink but not anymore no marijuana are illegal substances. Smoking status: Never smoker Second hand tobacco smoke exposure: Yes Alcohol intake: former Substance use: never Substance use type: does not use Do You Feel Safe in your Home?: Yes Lack of Transportation: No Lack of Food: Never True Current Housing: I Have Housing Concerned About Future Housing: No Difficulty Paying Gas/Electric Bills: No Difficulty Paying for Meds: No Currently Unemployed: No Education: Trade/Vocational Certificate Difficulty w/ Childcare or Family Care: No Living arrangements: with family Occupation/Education: retired Gender identity (if verbalized by the patient): Male Spiritual care concerns: No Meds Home Medications and Allergies Home Medications ?Medication ?Instructions ?Recorded ?Confirmed ?Type atorvastatin 20 mg tablet 20 mg PO 3XW 02/07/20 03/19/25 History lisinopril 20 mg tablet 20 mg PO DAILY 02/07/20 03/19/25 History [id number] 300 mcg-K 60 1 tablet PO DAILY 02/07/20 03/19/25 History mcg-lycop 600 mcg-lutein 300 mcg tablet (Centrum Silver Men) acetaminophen 500 mg tablet 1,000 mg PO Q6H PRN Pain (Scale 11/04/23 03/19/25 History Score 1-3) metformin 500 mg tablet 50 mg PO 1400 11/04/23 03/19/25 History ascorbic acid (vitamin C) 500 mg 500 mg PO HS 03/19/25 03/19/25 History capsule,extended release ferrous sulfate 325 mg (65 mg 325 mg PO HS 03/19/25 03/19/25 History iron) tablet (Iron (ferrous sulfate)) omeprazole magnesium 20 mg 20 mg PO DAILY PRN indigestion 03/19/25 03/19/25 History tablet,delayed release (Prilosec OTC) prednisolone acetate 1 % eye 1 drp EACH EYE 3XW 03/19/25 03/19/25 History drops,suspension tamsulosin 0.4 mg capsule 0.4 mg PO HS 03/19/25 03/19/25 History Allergies Allergy/AdvReac Type Severity Reaction Status Date / Time No Known Allergies Allergy Unknown Verified 03/19/25 14:42 Vital Signs Vital Signs - 24 hr 03/19/25 14:29 03/19/25 14:41 03/19/25 14:42 Temperature 97.6 F Pulse Rate 76 80 77 Respiratory Rate 16 20 Blood Pressure 125/62 144/78 H Pulse Oximetry 98 98 Oxygen Delivery Room Air 03/19/25 14:51 03/19/25 16:15 03/19/25 16:15 Temperature 97.8 F Pulse Rate 72 73 73 Respiratory Rate 20 19 19 Blood Pressure 135/73 119/61 Pulse Oximetry 98 97 97 Oxygen Delivery Room Air 03/19/25 16:30 03/19/25 16:45 03/19/25 17:00 Temperature Pulse Rate 70 67 71 Respiratory Rate 15 16 17 Blood Pressure 109/60 106/59 L 111/66 Pulse Oximetry 98 98 97 Oxygen Delivery 03/19/25 17:15 03/19/25 17:30 03/19/25 17:45 Temperature Pulse Rate 69 67 65 Respiratory Rate 15 15 18 Blood Pressure 123/65 117/61 Pulse Oximetry 97 96 96 Oxygen Delivery 03/19/25 18:00 03/19/25 18:00 03/19/25 18:00 Temperature Pulse Rate 68 68 68 Respiratory Rate 17 17 Blood Pressure 131/65 131/65 Pulse Oximetry 96 96 Oxygen Delivery 03/19/25 18:15 03/19/25 18:30 03/19/25 18:45 Temperature Pulse Rate 75 62 67 Respiratory Rate 20 17 16 Blood Pressure 128/70 133/65 127/63 Pulse Oximetry 98 100 98 Oxygen Delivery 03/19/25 19:00 03/19/25 19:18 03/19/25 20:00 Temperature Pulse Rate 74 73 Respiratory Rate 19 20 Blood Pressure 129/63 125/62 Pulse Oximetry 97 96 Oxygen Delivery Room Air 03/19/25 20:00 03/19/25 20:00 03/19/25 20:10 Temperature 97.6 F Pulse Rate 78 77 75 Respiratory Rate 21 H 19 Blood Pressure 134/62 127/59 L Pulse Oximetry 97 96 Oxygen Delivery 03/19/25 21:10 03/19/25 22:00 03/19/25 22:00 Temperature 97.4 F L Pulse Rate 63 62 62 Respiratory Rate 16 16 Blood Pressure 129/65 141/67 H Pulse Oximetry 97 97 Oxygen Delivery 03/19/25 22:10 03/20/25 00:00 03/20/25 00:00 Temperature Pulse Rate 62 68 Respiratory Rate 16 20 Blood Pressure 141/67 H 147/75 H Pulse Oximetry 97 99 Oxygen Delivery Room Air 03/20/25 00:00 03/20/25 00:00 03/20/25 00:25 Temperature 97.2 F L Pulse Rate 67 65 67 Respiratory Rate 19 20 Blood Pressure 147/75 H 140/69 Pulse Oximetry 96 98 Oxygen Delivery 03/20/25 00:45 03/20/25 01:05 03/20/25 01:35 Temperature Pulse Rate 65 69 66 Respiratory Rate 14 17 15 Blood Pressure 133/66 136/67 129/67 Pulse Oximetry 98 98 98 Oxygen Delivery 03/20/25 02:00 03/20/25 02:00 03/20/25 04:00 Temperature 98.1 F Pulse Rate 68 68 Respiratory Rate 16 Blood Pressure 127/63 Pulse Oximetry 99 Oxygen Delivery Room Air 03/20/25 04:00 03/20/25 04:00 03/20/25 06:00 Temperature 97.8 F Pulse Rate 65 65 60 Respiratory Rate 16 Blood Pressure 146/65 H Pulse Oximetry 97 Oxygen Delivery 03/20/25 06:00 03/20/25 07:48 03/20/25 09:37 Temperature 98.4 F 98.1 F Pulse Rate 60 92 88 Respiratory Rate 14 17 15 Blood Pressure 131/67 143/65 H 125/63 Pulse Oximetry 97 98 96 Oxygen Delivery 03/20/25 10:00 Temperature Pulse Rate 80 Respiratory Rate 18 Blood Pressure 107/65 Pulse Oximetry 95 Oxygen Delivery Exam 2 Narrative: General: Pleasant gentleman in no acute distress HEENT:? Pupils equal and reactive, sclerae is clear Neck:? Supple Respiratory:? Clear to auscultation bilaterally, adequate air entry, no wheeze Cardiac:? S1-S2 is normal, regular rate and rhythm Abdomen:? Soft, nontender, nondistended, normoactive bowel sounds Extremities:? No edema, palpable pedal pulse, right radial site without any evidence of ecchymosis or hematoma. Right radial pulse is palpable Neuro:? Patient is awake, alert, oriented, nonfocal Skin:? No skin lesions noted Psych:? Normal mentation and affect Results Labs 03/20/25 08:26 03/20/25 08:26 Labs: Short CBC 03/19/25 03/20/25 Range/Units 14:44 08:26 WBC 13.4 H 10.1 H (4.5-10.0) K/mm3 Hgb 13.9 L 13.8 L (14.0-18.0) g/dL Hct 43.4 44.0 (42.0-52.0) % Plt Count 237 222 (150-375) k/mm3 BMP 03/19/25 03/20/25 14:44 08:26 Sodium 137 137 Potassium 5.4 H 4.8 Chloride 105 106 Carbon Dioxide 25 21 L BUN 28 H 21 H Creatinine 1.39 H 1.15 Glucose 168 H 258 H Calcium 10.1 9.6 Cardiac Enzymes 03/19/25 Range/Units 14:44 Troponin I 0.124 H* (0.000-0.034) ng/mL Liver Function 03/19/25 03/20/25 Range/Units 14:44 08:26 Total Bilirubin 0.9 1.1 (0.2-1.3) mg/dL AST 36 58 (17-59) U/L ALT 22 29 (6-50) U/L Alkaline Phosphatase 70 68 (38-126) U/L Albumin 4.2 3.9 (3.5-5.1) g/dL Quality If No VTE Prophylaxis Answer both mechanical and pharmacologic: Reason no mechanical VTE proph: low risk/not indicated Reason no pharmacologic proph: low risk/not indicated Hospitalist MIPS Advance Care Plan I have confirmed that the patient's Advanced Care Plan is present, code status is documented, or surrogate decision maker is listed in patient medical record.: Yes Medication Reconciliation I have utilized all available resources to obtain, update and review the patients current medications (includes all prescriptions, OTC, herbals, cannabis, and nutritional supplements).: Yes
[2025-03-20] MEDS: PANTOPRAZOLE 40 MG TABLET PO (16:44)
[2025-03-20] MEDS: FERROUS SULFATE 325 MG TABLET DR BY MOUTH (20:12)
[2025-03-20] MEDS: ASCORBIC ACID 500 MG TABLET PO (20:12)
[2025-03-20] MEDS: TAMSULOSIN HCL 0.4 MG CAPSULE PO (20:12)
--- NOTE | 2025-03-20 22:50 | PC.NURSE ---
This patient, Priscilla Dennis, was transferred to [facility] via bed on 03/20/25 at 2249. Personal belongings sent with patient. Report given to Anne-Marie PENA. Appropriate documentation sent with patient.
[2025-03-21] VITALS (10 sets, daily range): BP systolic 112–137; BP diastolic 57–82; PULSE 56–111; RESP 7–20; TEMP 36.7–36.9; O2SAT 92–99
[2025-03-21 04:38] LABS: Alanine Aminotransferase 20 U/L (6-50); Albumin Level 3.9 g/dL (3.5-5.1); Alkaline Phosphatase 69 U/L (38-126); Anion Gap 8 mmol/L (4-12); Aspartate Amino Transferase 43 U/L (17-59); Bilirubin,Total 1.1 mg/dL (0.2-1.3); Blood Urea Nitrogen 22 mg/dL (9-20); Calcium 9.8 mg/dL (8.4-10.2); Carbon Dioxide 24 mmol/L (22-30); Chloride 107 mmol/L (98-107); Estimated CRCL calculation 40 ml/min; Estimated Glomerular Filt Rate 55; Glucose 116 mg/dL (65-110); Magnesium 1.9 mg/dL (1.6-2.3); Potassium 4.2 mmol/L (3.4-5.0); Sodium 139 mmol/L (137-145); Total Protein 7.0 g/dL (6.3-8.2)
[2025-03-21] MEDS: CLOPIDOGREL BISULFATE 75 MG TABLET PO (09:07)
[2025-03-21] MEDS: OPTI-GEN TAB 1 TABLET PO (09:07)
[2025-03-21] MEDS: ATORVASTATIN 40 MG TABLET 80 MG PO (09:07)
[2025-03-21] MEDS: ASPIRIN 81 MG ENTERIC TABLET PO (09:07)
--- NOTE | 2025-03-21 11:50 | P.DS_ITS ---
DS: Admitting Diagnosis Discharge Date 03/21/2025 Admitting Diagnosis Inferior ST-elevation NM DS: Discharge Diagnosis Discharge Diagnosis Plan Inferior ST-elevation NM DS: Summary Hospital Course Reason for hospitalization: Inferior ST-elevation NM Hospital Course: 80-year-old male with history of hypertension, hyperlipidemia, type 2 diabetes mellitus, gout, iron deficiency anemia, arthritis, skin cancer presented with chief complaint of left-sided pressure-like chest pain for about an hour and a half. No shortness of breath, diaphoresis, dizziness, lightheadedness, presyncope, syncope, recent leg swelling, recent weight gain, orthopnea, PND. EKG shows inferior ST elevations and reciprocal ST depressions in the lateral leads consistent with inferior STEMI. Emergent cardiac catheterization was performed which showed 90% thrombotic stenosis in the mid RCA which was the culprit for patient's presentation. Patient underwent successful IVUS guided PCI to mid RCA with 4.2 mm X 30 mm Medtronic kristan [place] FLACO without any co mplications. Patient tolerated the procedure well and chest pain resolved post procedure. Cardiac catheterization also showed 50% stenosis in mid LAD which will be treated with medical management. TTE showed normal LVEF with no significant valvular pathology. He will continue DAPT for 1 year with aspirin 81 mg daily and Plavix 75 mg daily after which he will continue aspirin 81 mg daily indefinitely. Dose of atorvastatin was increased from 20-80 mg daily. Patient discharge in stable condition to follow-up with cardiology in 1 month. He will go for cardiac rehab in 1 month. Status at Discharge Cognitive/behavioral status at discharge: Stable Time Spent with Patient Time attestation: Total time spent providing and/or coordinating discharge services: Exam Narrative: General: Alert oriented x3, no acute distress Neck: Supple, no JVD Chest: Bilaterally clear to auscultation, no rales or rhonchi Cardiac: S1, S2 +, regular rate, regular rhythm, no murmurs or rubs Extremities: B no pedal edema, no skin rash Neurologic: Alert and oriented x3, no focal neurological deficits DS: Data Data Completed and Pending Labs on day of discharge: Labs from last 24 hours 03/21/25 03/20/25 03/20/25 03:51 20:10 16:46 Sodium 139 Potassium 4.2 Chloride 107 Carbon Dioxide 24 Anion Gap 8 BUN 22 H Creatinine 1.26 Estim Creat Clear Calc 40 Estimated GFR 55 L Glucose 116 H POC Capillary Glucose 122 H 109 H Calcium 9.8 Magnesium 1.9 Total Bilirubin 1.1 AST 43 ALT 20 Alkaline Phosphatase 69 Total Protein 7.0 Albumin 3.9 Discharge Plan Discharge Attending physician on discharge: Gladys Verde Consulting providers: Jere Allan Discharging Clinician: Gladys Verde Patient Disposition: Home Activity: other - see discharge instructions Diet: heart healthy Wound Care Instructions: other - see discharge instructions Discharge Instructions: No driving for 24 hours Do not lift more than 10 lb with right hand for 1 week Cardiac rehab at 1 month Patient Instructions: Antibiotic Form Patient Language: Haitian Stand Alone Forms: General Discharge Information Follow-up/Referrals: Cardiology [facility] [Other] (Follow-up in 1 month) Discharge Medications: New clopidogrel 75 mg Tablet 75 mg PO QAM Qty: 30 12RF aspirin 81 mg Tablet,Delayed Release (Dr/Ec) 81 mg BYMOUTH QAM 60 Days Qty: 60 7RF atorvastatin 20 mg Tablet 80 mg PO DAILY 30 Days Qty: 30 12RF clopidogrel 75 mg Tablet 75 mg PO QAM 60 Days Qty: 60 7RF Continued Centrum Silver Men 300-600-300 mcg Tablet 1 tablet PO DAILY 30 Days Qty: 30 0RF metformin 500 mg tablet 50 mg PO 1400 30 Days Qty: 30 0RF acetaminophen 500 mg tablet 1,000 mg PO Q6H PRN (Reason: Pain (Scale Score 1-3)) 30 Days Qty: 10 0RF prednisolone acetate 1 % drops,suspension 1 drp EACH EYE 3XW 1 Days Qty: 1 0RF Patient Comments: Rx Instructions: 1 drp into each eye; lisinopril 20 mg Tablet 20 mg PO DAILY 30 Days Qty: 30 12RF tamsulosin 0.4 mg capsule 0.4 mg PO HS 30 Days Qty: 30 0RF Changed ferrous sulfate [Iron (ferrous sulfate)] 325 mg (65 mg iron) tablet 325 mg PO HS 30 Days Qty: 60 0RF ascorbic acid (vitamin C) [Vitamin C] 500 mg capsule, extended release 500 mg PO HS 30 Days Qty: 30 2RF Discontinued atorvastatin 20 mg Tablet 20 mg PO 3XW Rx Instructions: Takes on omeprazole magnesium [Prilosec OTC] 20 mg tablet,delayed release (DR/EC) 20 mg PO DAILY PRN (Reason: indigestion) Date of admission: 03/19/25 14:51 Primary Care Provider: MamadouChad Admitting Provider: Diogo Rocha Attending physician on admission: Diogo Rocha Condition: Stable
== END 2025-03-21 12:54 | disposition home or self-care (01) | DRG 322 ==
LOC: ANHED 14:52 → ANHICU 21:49 → ANHIMU 03-21 11:52 → ANHICU 03-22 08:47
PROVIDERS: Emergency Medicine; Internal Medicine; Admitting Provider Internal Medicine Interventional Cardiology; Emergency Provider Emergency Medicine; PCP Internal Medicine; Visit Provider Internal Medicine Interventional Cardiology
PROC: 027034Z Dilation of Coronary Artery, One Artery with Drug-eluting Intraluminal Device, Percutaneous Approach (ICD-10-PCS; CPT 93454; principal; 2025-03-19 14:45)
PROC: 027034Z Dilation of Coronary Artery, One Artery with Drug-eluting Intraluminal Device, Percutaneous Approach (ICD-10-PCS; CPT 92928; 2025-03-19 14:45)
PROC: 027034Z Dilation of Coronary Artery, One Artery with Drug-eluting Intraluminal Device, Percutaneous Approach (ICD-10-PCS; 2025-03-19 14:45)
DX: I21.19 ST elevation (STEMI) myocardial infarction involving other coronary artery of inferior wall (principal); I25.10 Atherosclerotic heart disease of native coronary artery without angina pectoris; I10 Essential (primary) hypertension; E78.5 Hyperlipidemia, unspecified; E11.9 Type 2 diabetes mellitus without complications; D50.9 Iron deficiency anemia, unspecified; M19.90 Unspecified osteoarthritis, unspecified site; Z85.828 Personal history of other malignant neoplasm of skin; Z90.49 Acquired absence of other specified parts of digestive tract; Z96.612 Presence of left artificial shoulder joint; Z96.1 Presence of intraocular lens; Z98.42 Cataract extraction status, left eye; Z98.41 Cataract extraction status, right eye
CPT/HCPCS: 36415; 80053; 82948; 83690; 83735; 84100; 84484; 85025; 85610; 85730; 87641; 92978; 93005; 93306; 93454; 99291; A9270; C1725; C1753; C1769; C1874; C1887; C1894; C9606; J1644; J2003; J2250; J2305; J3010; J7030; J7040

== ENCOUNTER 2025-05-22 14:47 | Emergency (ER) | payer MEDICARE, SELFPAY ==
--- OUTSIDE RECORDS SUMMARY | 2003-07-27 03:15 | XMS_ITS | Continuity of Care Document ---
Author Organization [facility] Address [address] [place] [address] [address] [place] [address] Phone Care Team Providers Care Plant Engineering Supervisor Name Role Phone Pamela East Unavailable Unavailable Advance Directives Directive Yes / No Effective Date File Name No Information Encounters Encounter Description Practice Location Reason(s) For Visit Diagnoses Date Provider Providers Copied on Encounter [facility], [id number] [place] [address] [address], [place], [place], [id number], [place] tel:[phone] [facility] No Information 3 Kita Santiago. [address] , [address], [place], [address], [place]. tel:[phone] Family History Family Member Type Diagnosis Age At Onset No Information Payers Payer name Insurance type Covered democrat ID Authoriza tion(s) No Information Social History Type Description Quantity Date Captured Comments Sex Male Smoking Status No Information Chief Complaint And Reason For Visit No Information Reason For Referral Reason For Referral No Information History Of Present Illness Encounter Date Complaint History Of Prese nt Illness No Information Functional Status Date Functional Assessmen t No Information Instructions Date Instruction Additional Infor mation No Information Assessments Type Assessment Date No Information Patient Care Teams Name Effective Dates (start - stop) Status Members No Information
--- OUTSIDE RECORDS SUMMARY | 2003-07-27 03:15 | XMS_ITS | Continuity of Care Document ---
Author Organization [facility] Address [address] [place] [address] [address] [place] [address] Phone Care Team Providers Care Supervisor Shop Name Role Phone Pamela East Unavailable Unavailable Advance Directives Directive Yes / No Effective Date File Name No Information Encounters Encounter Description Practice Location Reason(s) For Visit Diagnoses Date Provider Providers Copied on Encounter [facility], [id number] [place] [address] [address], [place], [place], [id number], [place] tel:[phone] [facility] No Information 3 Kita Santiago. [address] , [address], [place], [address], [place]. tel:[phone] Family History Family Member Type Diagnosis Age At Onset No Information Payers Payer name Insurance type Covered libertarian ID Authoriza tion(s) No Information Social History [...]
[2025-05-22] VITALS (7 sets, daily range): BP systolic 108–133; BP diastolic 55–65; PULSE 75–100; RESP 16–23; TEMP 36.7; O2SAT 97–100
--- NOTE | ~2025-05-22 | XR_ITS ---
XR chest 2V 05/22/2025 15:48 Indication: Chest pain Procedure: 2 view chest Comparison: 02/08/2020 Findings: There is left basilar atelectasis. There is a large hiatal hernia. There is a left shoulder arthroplasty. There is a new nodule in the right lung base. No focal pneumonia. No pneumothorax. Impression: 1: New nodular density right lung base. Correlation with CT chest recommended to exclude parenchymal nodule. 2: Left basilar atelectasis/scarring. 3: Large hiatal hernia. Reviewed, dictated and finalized at location O. Impression: 1: New nodular density right lung base. Correlation with CT chest recommended t o exclude parenchymal nodule. 2: Left basilar atelectasis/scarring. 3: Large hiatal hernia.
--- NOTE | 2025-05-22 14:48 | ECG_ITS ---
Test Date: 2025-05-22 14:53:16 Measurements Intervals [place] Rate: 98 P: 50 ME: 153 QRS: -12 QRSD: 92 T: 58 QT: 323 QTc: 413 Interpretive Statements SINUS RHYTHM WITH OCCASIONAL SUPRAVENTRICULAR PREMATURE COMPLEXES LOW QRS VOLTAGE IN PRECORDIAL LEADS [QRS DEFLECTION < 1.0 mV IN CHEST LEADS] LEFT AXIS DEVIATION NONSPECIFIC ST SEGMENT ABNORMALITY ABNORMAL ECG WARNING: DATA QUALITY MAY AFFECT INTERPRETATION Compared to ECG 03/19/2025 14:35:34 ACUTE INFERIOR INJURY IS NO LONGER DEMONSTRATED Electronically Signed On 05-23-2025 15:51:45 CDT by Chad Bourgeois M.D.
[2025-05-22 15:11] LABS: Hematocrit 28.1 % (42.0-52.0); Hemoglobin 8.5 g/dL (14.0-18.0); Immature Granulocyte Percent A 0.6 % (0-0.5); Lymphocytes Absolute Auto 2.12 K/mm3 (0.9-3.2); Mean Corpuscular HGB Conc 30.2 g/dl (32-36); Mean Corpuscular Hemoglobin 30.7 pg (26-34); Mean Corpuscular Volume 101.4 fl (80-100); Nucleated Red Blood Cells Absolute Auto 0.000 K/mm3 (0.0-0.012); Nucleated Red Blood Cells Perc 0.0 % (0.0-0.2); Platelet Count Result 269 k/mm3 (150-375); Red Blood Count 2.77 M/mm3 (4.6-6.20); White Blood Count 10.3 K/mm3 (4.5-10.0)
[2025-05-22 15:21] LABS: Alanine Aminotransferase 31 U/L (6-50); Albumin Level 3.9 g/dL (3.5-5.1); Alkaline Phosphatase 80 U/L (38-126); Anion Gap 8 mmol/L (4-12); Aspartate Amino Transferase 37 U/L (17-59); Bilirubin,Total 0.6 mg/dL (0.2-1.3); Blood Urea Nitrogen 36 mg/dL (9-20); Calcium 10.4 mg/dL (8.4-10.2); Carbon Dioxide 26 mmol/L (22-30); Chloride 106 mmol/L (98-107); Estimated CRCL calculation 43 ml/min; Estimated Glomerular Filt Rate 60; Glucose 124 mg/dL (65-110); Lipase 124 U/L (23-300); Potassium 4.5 mmol/L (3.4-5.0); Sodium 140 mmol/L (137-145); Total Protein 6.6 g/dL (6.3-8.2)
[2025-05-22 15:27] LABS: INR 1.0; Partial Thromboplastin Time 23.4 Seconds (22.3-36.8); Prothrombin Time 13.8 Seconds (11.1-14.7)
[2025-05-22 15:38] LABS: Troponin I < 0.012 ng/mL (0.000-0.034)
--- OUTSIDE RECORDS SUMMARY | 2025-05-22 16:15 | XMS_ITS | Encounter Summary ---
Author Organization [facility] Address [address] [place] [address] Care Team Providers Care Front Office Supervisor Name Role Phone Chad Ferraro MD Primary Care Provider [phone] Encounter Details Date Type Department Care Team (Late st Contact Info) Description 05/22/2025 Telephone [facility] Cardiology [address] [place] [address] Traci Rios MD [address] [place] [id number] Social History Tobacco Use Types Packs/Day Years Used Date Smoking Tobacco: Never Smokeless Tobacco: Never Sex and Gender Information Value Date Recorded Sex Assigned at Not on file 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 Pt c/o SOB, epigastric pain, and black tarry stools. Pt is on iron supplements for anemia. Pt reports that SOB and epigastric pain started about the same time yesterday and pt is wondering if he could take a prilosec for relief. Pt denies any other symptoms. Advised of CT's last OV note, she did tell pt that he could use pantoprazole occasionally. With pts symptoms of SOB, worse with exertion, and Epigastric pain I advised pt to go to the ER for evaluation. Pt and spouse verbalizes understanding. Spouse requesting ER be called to be made aware that pt is coming. I spoke with Dr. Dash at ER and he is aware. * Telephone Encounter - Wendy Stauffer - 05/22/2025 2:14 PM CDT Pt spouse states pt is SOB and has indigestion. Wants to know if pt can take prilosec. Please advise, thank you. Contact: documented in this encounter Plan of Treatment Not on file documented as of this encounter Visit Diagnoses Not on filedocumented in this encounter Care Teams Front Office Supervisor Relationship Specialty Start Date End Date Chad Ferraro MD PCP - General 07/12/17 documented as of this encounter
--- OUTSIDE RECORDS SUMMARY | 2025-05-22 16:15 | XMS_ITS | Clinical Summary ---
Author Organization [facility] Address [address] [place] [address] Care Team Providers Care Nail Puller Name Role Phone Chad Ferraro MD Primary Care Provider [phone] Allergies No known active allergies Medications tamsulosin [...] Encounters Date Type Department Care Team Description 05/02/2025 External Device Data STL ABSTRACTION Provider, Abstract 05/01/2025 External Device Data [facility] ABSTRACTION Provider, Abstract 03/28/2025 External Device Data [facility] ABSTRACTION Provider, Abstract 03/28/2025 External Device Data STL ABSTRACTION Provider, Abstract 03/28/2025 External Device Data STL ABSTRACTION Provider, Abstract 02/27/2025 External Device Data STL ABSTRACTION Provider, [...] st Contact Info) Description 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 Office Visit [facility]ology - Deondre [address] [facility] [address] [place] [address] Bryce Shaw MD [address] [facility] [address] [place] [address] Health Maintenance Due Date Last Done Comments DIABETES ANNUAL FOOT EXAM 1963 DIABETES MICROALBUMIN ANNUAL SCREEN 1963 LDL CHOLESTEROL ANNUAL 1963 DTAP/TDAP/TD VACCINES (1 - Tdap) 1964 PNEUMOCOCCAL VACCINE 50+ YEA RS (2 of 2 - PPSV23, PCV20, or PCV21) 09/05/2018 07/11/2018, 06/18/2015 ZOSTER VACCINE (2 of 2) 02/17/2019 12/23/2018 RSV VACCINE (60+ or ) (1 - 1-dose 75+ series) 2020 DIABETES ANNUAL RETINAL EXAM 03/14/202510/2023, 03/14/2024, 11/02/2022, Additional history exists INFLUENZA VACCINE (#1) 2025 2, 05/14/2021, 05/06/2020, Additional history exists DIABETES HBA1C Q 6 MONTHS 09/05/20252024, 07/05/2024, 11/09/2023, Additional history exists Insurance MEDICARE PART A AND B [employer] Care Teams Nail Puller Relationship Specialty Start Date End Date Chad Ferraro MD [address] [place] [phone] PCP - General Internal Medicine 11/23/23
--- OUTSIDE RECORDS SUMMARY | 2025-05-22 16:15 | XMS_ITS | Clinical Summary ---
Author Organization [facility] Address [address] [place] [phone] Care Team Providers Care Python Programmer Name Role Phone Chad Ferraro MD Primary Care Provider [phone] Allergies No known active allergies Medications FLUZONE HIGH-DOSE 2017-, PF, 180 mcg/0.5 mL syringe ADM 0.5ML IM UTD 0 05/24/2018 Active PREVNAR 13, PF, 0.5 mL vaccine ADM 0.5ML IM UTD 0 07/05/2018 Active prednisoLONE acetate (PRED FORTE) 1 % ophthalmic suspension INT 1 GTT INTO OU THREE TIMES A WEEK 6 06/13/2018 Active cyanocobalamin (Vitamin B-12) 1,000 mcg tabletIndicatio ns:Prevention of Vitamin B12 Deficiency Take 1 tablet (1,000 mcg total) by mouth daily Active ascorbic acid 500 mg tablet,chewable Take 1 tablet/chew tab (500 mg total) by mouth daily Active aspirin 81 mg enteric coated tablet TAKE 1 TABLET BY MOUTH EVERY MORNING FOR 60 DAYS 03/21/2025 Active atorvastatin (LIPITOR) 80 mg tablet Take 1 tablet (80 mg total) by mouth daily 03/21/2025 Active clopidogreL (PLAVIX) 75 mg tablet Take 1 tablet (75 mg total) by mouth every morning 03/21/2025 Active lisinopriL (PRINIVIL,ZESTR IL) 20 mg tablet Take 1 tablet (20 mg total) by mouth daily 02/14/2025 Active metFORMIN (GLUCOPHAGE) 500 mg tablet Take 1 tablet (500 mg total) by mouth daily Active tamsulosin (FLOMAX) 0.4 mg extended release capsule Take 1 capsule (0.4 mg total) by mouth nightly Active Centrum Silver Men 174-76-592-300 mcg tablet Take by mouth daily 03/21/2025 Active FeroSuL 325 mg (65 mg iron) tablet Take 1 tablet (325 mg total) by mouth nightly Active Active Problems No known active problems Encounters Date Type Department Care Team Description 05/22/2025 Telephone [facility] Cardiology [address] [place] [address] [place] [phone] Traci Rios MD 04/17/2025 2:30 PM CDT Office Visit [address] [phone] Lela Keating NP History of ST elevation myocardial infarction (STEMI) (Primary Dx); Coronary artery disease involving iroquois coronary artery of iroquois heart without angina pectoris; Presence of stent in coronary artery; Hypertension associated with type 2 diabetes mellitus (HCC); Hospital discharge follow-up 03/27/2025 Telephone [place] [address] [place] [phone] Lela Keating NP 03/23/2025 Orders Only [address] [phone] Gladys Verde MD 03/23/[address] [phone] Svetlana Gallardo MA 03/22/[address] [phone] Lela Keating NP 03/22/[address] [phone] Gladys Verde MD from Last 3 Months Surgical History Surgery Date Site/Laterality Comments CHOLECYSTECTOMY [id number] CATARACT EXTRACTION Medical History Medical History Date Comments Hypertension [id number] Diabetes mellitus (HCC) [id number] Arthritis [id number] Social History Tobacco Use Types Packs/Day Years Used Date Smoking Tobacco: Never Smokeless Tobacco: Never Sex and Gender Information Value Date Recorded Sex Assigned at Not on file 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 Gender Identity Not on file Sexual Orientation Not on file Obstetrics History Last Filed Vital Signs Vital Sign Reading Time Taken Comments Blood Pressure 120/60 04/17/2025 2:25 PM CDT Pulse 94 04/17/2025 2:25 PM CDT Temperature - - Respiratory Rate - - Oxygen Saturation 95% 04/17/2025 2:25 PM CDT Inhaled Oxygen Concentration - - Weight 78.9 kg (174 lb) 04/17/2025 2:25 PM CDT Height 175.3 cm (5' 9) 04/17/2025 2:25 PM CDT Body Mass Index 25.7 04/17/2025 2:25 PM CDT Plan of Treatment Health Maintenance Due Date Last Done Comments Albumin Creatinine Ratio, Urine 1945 Depression Screening 1945 Fall Risk Assessment 1945 Hemoglobin A1C 1945 eGFR 1945 Dilated Eye Exam 1945 Foot Exam 1945 Lipid Panel 1945 Hepatitis B Screening 1963 Well Visit 65+ 2010 Covid-19 Vaccine (2023-2 5 season) 2025 05/30/2024, 06/02/2023, 05/22/2022, Additional history exists Influenza Vaccine (#1) 2025 , 06/02/2023, 05/22/2022, Additional history exists DTaP/Tdap/Td Vaccine (2 - Td or Tdap) 11/01/2034 11/01/2024 Zoster Vaccine Completed 02/25/2019, 12/23/2018 Pneumococcal vaccine 65+ Completed 024, 07/11/2018, 07/04/2018, Additional history exists Procedures Procedure Name Priority Date/Time Associated Diagnosis Comments CARDIOLOGY DOCUMENT SCAN Routine 03/21/2025 3:00 PM CDT CARDIOLOGY DOCUMENT SCAN Routine 03/20/2025 2:59 PM CDT SCAN - LABS 03/20/2025 CARDIOLOGY DOCUMENT SCAN Routine 03/19/2025 2:57 PM CDT CARDIOLOGY DOCUMENT SCAN Routine 03/19/2025 2:51 PM CDT from Last 3 Months Results * Cardiology Document Scan (03/21/2025 3:00 PM CDT) Anatomical Region Laterality Modality Other Gladys Verde MD [facility] CARDIAC SERVICES PROCEDU RES Final Result * Cardiology Document Scan (03/20/2025 2:59 PM CDT) Anatomical Region Laterality Modality Other Gladys Verde MD CV CARDIAC SERVICES PROCEDU RES Final Result * SCAN - LABS (03/20/2025) Provider Scanning Final Result * Cardiology Document Scan (03/19/2025 2:57 PM CDT) Anatomical Region Laterality Modality Other Gladys Verde MD CV CARDIAC SERVICES PROCEDU RES Final Result * Cardiology Document Scan (03/19/2025 2:51 PM CDT) Anatomical Region Laterality Modality Other Gladys Verde MD CV CARDIAC SERVICES PROCEDU RES Final Result from Last 3 Months Insurance MEDICARE [employer] MEDICARE [employer] Care Teams Python Programmer Relationship Specialty Start Date End Date Chad Ferraro MD PCP - General 07/12/17
--- NOTE | 2025-05-22 16:28 | ED.CHESTPAIN ---
HPI - Chest Pain General Chief Complaint: Chest Pain Stated Complaint: chest pain Time Seen by Provider: 05/22/25 15:48 History of Present Illness HPI narrative: This is an 80-year-old female with history of CAD status post stents, diabetes, iron deficiency anemia who presents to the ED for abdominal pain. Patient states that for the past day, he has been having epigastric abdominal discomfort that felt similar to his prior heart attack 2 months ago. The only thing that was different this time as prior he had radiation to the right shoulder which he does not have at this time. He states that he took a pantoprazole prior to coming in and his pain is feeling better. Denies nausea, vomiting, diarrhea, constipation, shortness of breath. Related Data Allergies Allergy/AdvReac Type Severity Reaction Status Date / Time No Known Allergies Allergy Unknown Verified 03/19/25 14:42 Review of Systems Review of Systems: Gen.: Denies fevers or chills Eyes: Denies eye pain or visual change ENT: Denies congestion Respiratory: Denies shortness of breath or cough CV: Denies chest pain or palpitations GI: As per HPI denies burning, urgency, frequency or hematuria Musculoskeletal: Denies back pain or muscle pain Neuro: Denies numbness, tingling, weakness or focal weakness Skin: Denies rash Except as documented, all other systems reviewed and negative PMFSH Past Medical History Medical History DM2 (diabetes mellitus, type 2) Skin cancer Arthritis Compression fracture T12 Gout Iron deficiency anemia Hyperlipidemia HTN (hypertension) with goal to be determined Surgical History Surgical History History of cataract extraction with lens replacement History of cholecystectomy History of left shoulder replacement Family History Family History Father Acute myocardial infarction Gout Mother Cerebral brain hemorrhage Social History Social History Social History: The patient is and lives with his . She is a durable power ip technology transactions attorney for healthcare. The patient desires to be a full code. The patient has 4 children. He worked for still male. He works in the [employer] department. Lifelong nonsmoker. He used to drink but not anymore no marijuana are illegal substances. Smoking status: Never smoker Second hand tobacco smoke exposure: Yes Alcohol intake: former Substance use: never Substance use type: does not use Do You Feel Safe in your Home?: Yes Lack of Transportation: No Lack of Food: Never True Current Housing: I Have Housing Concerned About Future Housing: No Difficulty Paying Gas/Electric Bills: No Difficulty Paying for Meds: No Currently Unemployed: No Education: Trade/Vocational Certificate Difficulty w/ Childcare or Family Care: No Living arrangements: with family Occupation/Education: retired Gender identity (if verbalized by the patient): Male Spiritual care concerns: No Exam Narrative: APPEARANCE: No acute distress, nontoxic, resting in bed EYES: EOMI HEENT: Normocephalic, atraumatic, OMM RESPIRATORY: No respiratory distress Clear to auscultation bilaterally with no rhonchi wheezing or rales. CARDIOVASCULAR: Regular rate and rhythm without murmurs rubs or gallops. ABDOMINAL: Soft, nontender, nondistended, no rebound or guarding MUSCULOSKELETAl: Moves all extremities. No clubbing, cyanosis or edema. NEURO: Awake and alert. Following commands, speech normal, no focal deficits SKIN:: Warm, dry. No rashes lesions or abrasions PSYCHIATRIC: Normal affect/mood, Course Vital Signs Vital signs: Vital Signs Temperature 98.1 F 05/22/25 15:00 Pulse Rate 100 05/22/25 15:00 Respiratory Rate 16 05/22/25 15:00 Blood Pressure 109/55 L 05/22/25 15:00 Pulse Oximetry 100 05/22/25 15:00 Temperature 98.1 F 05/22/25 15:00 Pulse Rate 77 05/22/25 18:44 Respiratory Rate 20 05/22/25 18:44 Blood Pressure 115/62 05/22/25 18:44 Pulse Oximetry 99 05/22/25 18:44 Oxygen Delivery Room Air 05/22/25 16:00 MDM - Chest Pain MDM Narrative Medical decision making narrative: 8-year-old male who presents to the ED for epigastric abdominal pain. On initial evaluation, patient was in no acute distress, afebrile, hemodynamically stable. Heart and lungs clear. Abdomen was soft and nontender. Chest x-ray showed evidence of a large hiatal hernia. He was anemic to a 8.5, down from 9.4 last year. Initial troponin negative. Repeat troponin negative. Suspect that patient's epigastric discomfort is related to his hiatal hernia. This was not evident on most recent x-ray 5 years ago. He was advised follow-up with gastroenterology in the next week for possible EGD and was given a referral to General surgery for possible surgical intervention. Patient was agreeable to this plan. Given strict return precautions. Differential Diagnosis Differential diagnosis: Likely unstable angina pectoris, atypical chest pain, costochondritis, chest pain and other (Hiatal hernia) Medical Records Data Attestation: I reviewed the patient's medical records. Lab Data Attestation: I reviewed the patient's lab results. 05/22/25 15:00 05/22/25 15:00 Labs: Lab Results 05/22/25 05/22/25 Range/Units 15:00 17:40 WBC 10.3 H (4.5-10.0) K/mm3 RBC 2.77 L (4.6-6.20) M/mm3 Hgb 8.5 L D (14.0-18.0) g/dL Hct 28.1 L (42.0-52.0) % MCV 101.4 H (80-100) fl MCH 30.7 (26-34) pg MCHC 30.2 L (32-36) g/dl RDW 14.9 H (11.5-14.5) % Plt Count 269 (150-375) k/mm3 MPV 9.9 (7.4-10.4) fl Immature Gran % (Auto) 0.6 H (0-0.5) % Neut % (Auto) 68.4 (45.5-73.1) % Lymph % (Auto) 20.6 (18.3-44.2) % Madison % (Auto) 8.9 H (2.6-8.5) % Eos % (Auto) 1.0 (0-4.4) % Baso % (Auto) 0.5 (0.2-1.2) % Lymph # (Auto) 2.12 (0.9-3.2) K/mm3 Madison # (Auto) 0.9 H (0.1-0.6) K/mm3 Eos # (Auto) 0.1 (0-0.3) K/mm3 Baso # (Auto) 0.1 (0.0-0.1) K/mm3 Abs Immat Gran (auto) 0.06 H (0.00-0.031) K/mm3 Absolute Neuts (auto) 7.1 H (1.3-6.7) K/mm3 Absolute Nucleated RBC 0.000 (0.0-0.012) K/mm3 Nucleated RBC % 0.0 (0.0-0.2) % PT 13.8 (11.1-14.7) Seconds INR 1.0 APTT 23.4 (22.3-36.8) Seconds Sodium 140 (137-145) mmol/L Potassium 4.5 (3.4-5.0) mmol/L Chloride 106 (98-107) mmol/L Carbon Dioxide 26 (22-30) mmol/L Anion Gap 8 (4-12) mmol/L BUN 36 H D (9-20) mg/dL Creatinine 1.17 (0.7-1.3) mg/dL Estim Creat Clear Calc 43 ml/min Estimated GFR 60 (59 - ) Glucose 124 H (65-110) mg/dL Calcium 10.4 H (8.4-10.2) mg/dL Total Bilirubin 0.6 (0.2-1.3) mg/dL AST 37 (17-59) U/L ALT 31 (6-50) U/L Alkaline Phosphatase 80 (38-126) U/L Troponin I < 0.012 < 0.012 (0.000-0.034) ng/mL Total Protein 6.6 (6.3-8.2) g/dL Albumin 3.9 (3.5-5.1) g/dL Lipase 124 (23-300) U/L Imaging Data Radiologist's impression: Impressions Chest X-Ray 05/22/25 15:49 Impression: 1: New nodular density right lung base. Correlation with CT chest recommended to exclude parenchymal nodule. 2: Left basilar atelectasis/scarring. 3: Large hiatal hernia. ECG Data EKG #1: Attestation: I personally reviewed and interpreted this ECG as follows: ECG completion date: 05/22/25 ECG completion time: 14:53 Interpretation: Sinus rhythm rate of 98, normal axis, normal intervals, minimal ST depressions in 2, V4 through V6, no ST elevations no T-wave change EKG #2: Attestation: I personally reviewed and interpreted this ECG as follows: ECG completion date: 05/22/25 ECG completion time: 14:53 Interpretation: Normal sinus rhythm rate of 73, normal axis, normal intervals, no acute ST or T-wave changes. Comparison from her earlier: ST depressions have resolved Discharge Plan Discharge Clinical Impression: Hernia, hiatal Patient Disposition: Home Condition: Stable Instructions: Antibiotic Form, Hiatal Hernia (ED) Additional Instructions: Continue to take your pantoprazole as prescribed. Your given referrals to Gastroenterology and surgery, call their offices in the next few days to schedule appointment to discuss your hiatal hernia. Follow-up with your upholstery repairer regarding your anemia. Return to the ED for any new or worsening symptoms. Patient Language: Slovak Prescriptions: No Action atorvastatin 20 mg Tablet 80 mg PO DAILY 30 Days Qty: 30 12RF clopidogrel 75 mg Tablet 75 mg PO QAM 60 Days Qty: 60 7RF aspirin 81 mg Tablet,Delayed Release (Dr/Ec) 81 mg BYMOUTH QAM 60 Days Qty: 60 7RF metformin 500 mg tablet 50 mg PO 1400 30 Days Qty: 30 0RF lisinopril 20 mg Tablet 20 mg PO DAILY 30 Days Qty: 30 12RF acetaminophen 500 mg tablet 1,000 mg PO Q6H PRN (Reason: Pain (Scale Score 1-3)) 30 Days Qty: 10 0RF prednisolone acetate 1 % drops,suspension 1 drp EACH EYE 3XW 1 Days Qty: 1 0RF Patient Comments: M-W-F Rx Instructions: 1 drp into each eye; tamsulosin 0.4 mg capsule 0.4 mg PO HS 30 Days Qty: 30 0RF ferrous sulfate [Iron (ferrous sulfate)] 325 mg (65 mg iron) tablet 325 mg PO HS 30 Days Qty: 60 0RF ascorbic acid (vitamin C) 500 mg capsule, extended release 500 mg PO HS 30 Days Qty: 30 2RF Centrum Silver Men 300-600-300 mcg Tablet 1 tablet PO DAILY 30 Days Qty: 30 0RF Follow-up/Referrals: Ronan,MD Chad [Primary Care Provider] Lalita Myers MD [Physician, General Surgery] Marcell Diamond MD [Physician, Gastroenterology]
--- OUTSIDE RECORDS SUMMARY | 2025-05-22 17:20 | XMS_ITS | Clinical Summary ---
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
--- OUTSIDE RECORDS SUMMARY | 2025-05-22 17:20 | XMS_ITS | Encounter Summary ---
Author Organization [facility] Address [address] [place] [address] Care Team Providers Care Boiler Control Room Operator Name Role Phone Chad Ferraro MD Primary Care Provider [phone] Encounter Details Date Type Department Care Team (Late st Contact Info) Description 05/22/2025 Telephone [facility] Cardiology [address] [place] [address] Traci Rios MD [address] [place] [id number] Social History Tobacco Use Types Packs/Day Years Used Date Smoking Tobacco: Never Smokeless Tobacco: Never Sex and Gender Information Value Date Recorded Sex Assigned at Not on file 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
--- OUTSIDE RECORDS SUMMARY | 2025-05-22 17:20 | XMS_ITS | Clinical Summary ---
Author Organization [facility] Address [address] [place] [phone] Care Team Providers Care English Teacher Name Role Phone Chad Ferraro MD Primary Care Provider [phone] Allergies No known active allergies Medications FLUZONE [...] by mouth nightly Active Centrum Silver Men 300-66-627-300 mcg tablet Take by mouth daily 03/21/2025 Active FeroSuL 325 mg (65 mg iron) tablet Take 1 tablet (325 mg total) by mouth nightly Active Active Problems No known active problems Encounters Date Type Department Care Team Description 05/22/2025 Telephone [facility] Cardiology [address] [place] [address] [place] [phone] Traci Rios MD 04/17/2025 2:30 PM CDT Office Visit [address] [phone] Lela Keating NP History of ST elevation myocardial infarction (STEMI) (Primary Dx); Coronary artery disease involving igiugig coronary artery of igiugig heart without angina pectoris; Presence of stent in coronary artery; Hypertension associated with type 2 diabetes mellitus (HCC); Hospital discharge follow-up 03/27/2025 Telephone [place] [address] [place] [phone] Lela Keating NP 03/23/2025 Orders Only [address] [phone] Gladys Verde MD 03/23/[address] [phone] Svetlana Gallardo MA 03/22/[address] [phone] Lela Keating NP 03/22/[address] [phone] Gladys Verde MD from Last 3 Months Surgical History Surgery Date Site/Laterality Comments CHOLECYSTECTOMY [id number] CATARACT EXTRACTION Medical History Medical History Date Comments Hypertension [id number] Diabetes mellitus (HCC) [id number] Arthritis [id number] Social History Tobacco Use Types Packs/Day Years Used Date Smoking Tobacco: Never Smokeless Tobacco: Never Sex and Gender Information Value Date Recorded Sex Assigned at Not on file 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
--- NOTE | 2025-05-22 17:33 | ECG_ITS ---
Test Date: 2025-05-22 17:41:01 Measurements Intervals [place] Rate: 73 P: 53 LA: 153 QRS: 5 QRSD: 88 T: 38 QT: 357 QTc: 396 Interpretive Statements SINUS RHYTHM LOW QRS VOLTAGE LEFTWARD AXIS ABNORMAL ECG Compared to ECG 05/22/2025 14:53:16 NO DIFFERENCE Electronically Signed On 05-23-2025 15:58:31 CDT by Chda Bourgeois M.D.
[2025-05-22 18:12] LABS: Troponin I < 0.012 ng/mL (0.000-0.034)
== END 2025-05-22 18:46 | disposition home or self-care (01) ==
PROVIDERS: Emergency Medicine; Emergency Provider Student in an Organized Health Care Education/Training Program; PCP Internal Medicine
DX: K44.9 Diaphragmatic hernia without obstruction or gangrene (principal); I25.10 Atherosclerotic heart disease of native coronary artery without angina pectoris; E11.9 Type 2 diabetes mellitus without complications; E78.5 Hyperlipidemia, unspecified; D50.9 Iron deficiency anemia, unspecified; M19.90 Unspecified osteoarthritis, unspecified site; M10.9 Gout, unspecified; Z95.5 Presence of coronary angioplasty implant and graft; Z85.828 Personal history of other malignant neoplasm of skin; Z79.899 Other long term (current) drug therapy; Z79.82 Long term (current) use of aspirin; Z79.84 Long term (current) use of oral hypoglycemic drugs; R94.31 Abnormal electrocardiogram [ECG] [EKG]
CPT/HCPCS: 36415; 71046; 80053; 83690; 84484; 85025; 85610; 85730; 93005; 99284